=== PATIENT | male | born 1945 | race Caucasian/White ===

== ENCOUNTER 2023-11-29 17:00 | Inpatient (IN) ==
--- NOTE | 2023-11-29 18:15 | XRay Report ---
XR chest 1V not portable HISTORY: 77 years-old Male Chest pain, nonspecific COMPARISON: None TECHNIQUE: AP view of the chest FINDINGS: Cardiac silhouette is enlarged. Left subclavian pacer/AICD. No pneumothorax. Pulmonary vascular conge stion. Small right and trace left pleural effusions with mild right basilar predominant consolidation . Bones are grossly intact. IMPRESSION: 1. Cardiomegaly with pulmonary vascular congestion. 2. Small right and trace left pleural effusions. 3. Mild right basilar consolidation. ACT 112: Negative or not required by law. The above report was generated using voice recognition software. It may contain grammatical, syntax o r spelling errors. Electronically signed by: Jose Eduardo Armenta M.D. 11/29/2023 6:14 PM
[2023-11-29 18:28] LABS: Basophils # (auto) 0.03 K/uL (0.00-0.20); Basophils % (auto) 0.4 %; Eosinophils # (auto) 0.08 K/uL (0.00-0.50); Hematocrit (blood only) 46.3 % (42.0-52.0); Immature Granulocytes # (auto) 0.02 K/uL (0.01-0.20); Immature Granulocytes % (auto) 0.3 %; Lymphocytes # (auto) 1.07 K/uL (1.20-3.40); Lymphocytes % (auto) 13.8 %; Mean Corpuscular Hemoglobin 28.5 pg (25.0-34.0); Mean Corpuscular Hgb Conc 32.4 g/dL (32.0-36.0); Mean Platelet Volume 11.6 fL (9.4-12.4); Neutrophils # (auto) 5.85 K/uL (1.40-6.50); Neutrophils % (auto) 75.5 %; Platelet Count 131 K/uL (130-400); RDW Coefficient of Variation 14.9 % (11.5-14.5); RDW Standard Deviation 48.2 fL (36.4-46.3); Red Blood Count 5.26 M/uL (4.70-6.10); White Blood Count 7.75 K/ul (4.8-10.8)
[2023-11-29 18:40] LABS: Albumin Globulin Ratio 1.4 (0.9-2); Albumin Level 3.9 gm/dl (3.4-5.0); BUN Creatinine Ratio 20.6 (10-20); Bilirubin,Total 1.2 mg/dl (0.2-1.0); Calcium 9.3 mg/dl (8.6-10.3); Creatinine Clr Calc Pharmacy 45.8 ml/min; Est GFR (African American) 44.4 ml/min; Est GFR (Non-African American) 38.3 ml/min; Globulin 2.7 gm/dl (2.5-4.0); Potassium 4.2 mmol/L (3.5-5.1); Total Protein 6.6 gm/dl (6.0-8.3)
[2023-11-29 18:48] LABS: INR 1.9 (0.9-1.1); Partial Thromboplastin Ratio 1.2; Partial Thromboplastin Time 33 Seconds (21-31); Prothrombin Time 19.7 Seconds (9.0-12.0)
[2023-11-29 19:14] LABS: Troponin I High Sensitivity 92.4 pg/ml (0-20)
[2023-11-29] MEDS: BUMETANIDE 2 MG in SYRINGE 0 ML IV ONE (20:00)
--- NOTE | 2023-11-29 20:12 | History & Physical Report ---
Date of Service November 29, 2023 Assessment & Plan (1) Acute decompensated heart failure: (2) Bilateral edema of lower extremity: (3) Pulmonary edema: (4) H/O valvular heart disease: (5) Atrial fibrillation: (6) HTN (hypertension): (7) BPH (benign prostatic hyperplasia): Plan This is a 77yo M with a PMH of atrial fibrillation on coumadin, history of valvular disease (unknown which valves), CHF, HTN, HLD, defibrillator/pacemaker placement, BPH, CKD III (Cr baseline unknown) presenting with worsening BLE swelling x 4 weeks and was found to have acute decompensated heart failure. Care coordinated with Dr. Jacobson. Please see addendum for plan. I spent a total of 75 minutes coordinating, documenting, and providing care for this patient excluding time spent in the performance of separately billed services. History of Present Illness Chief Complaint: SOB Primary Care Provider: Min Velásquez MD This is a 77yo M with a PMH of atrial fibrillation on coumadin, history of valvular disease (unknown which valves), CHF, HTN, HLD, defibrillator/pacemaker placement, BPH, CKD III (Cr baseline unknown) presenting with worsening BLE swelling x 4 weeks. Follows with [facility] in [place] for primary care and Dr. Scott for cardiology ([facility]) for A fib and CHF. Thinks he is been on Bumex since hospitalization at [facility] this past March. Bumex was working well until the past few weeks when he started to have worsening swelling in lower legs as well as SOB. When he saw Dr. Scott 3 weeks ago, he increased Bumex from 1mg daily to 2mg TuThSaSu and 1mg MoWeFr. SOB improved but BLE edema has persisted and he is now having serous drainage and wounds on legs. + orthopnea, sleeping in recliner. No PND. Does not think his weight has changed much in the past month. No fever, chills, lightheadedness, headache, CP, palpitations, N/V, abd pain, dysuria, diarrhea or constipation. Does not require home O2. Has been diagnosed with BERNARDINO but does not use a CPAP mask. Follows with primary care with [facility] in [place] and Dr. Roque for nephrology in [place]. In ED, patient febrile with VSS. Cr 1.70, BNP 887, initial HS trop 92.4 with repeat pending. CXR with cardiomegaly with pulmonary vascular congestion. Small right and trace left pleural effusions. Mild right basilar consolidation. Given 2mg IV Bumex in ED. Allergies Allergy/AdvReac Type Severity Reaction Status Date / Time cephalexin [From Keflex] Allergy Intermediate Hives Unverified 11/29/23 18:57 Sulfa (Sulfonamide Allergy Intermediate Hives Unverified 11/29/23 18:57 Antibiotics) celecoxib AdvReac Intermediate Diarrhea Unverified 11/29/23 18:57 lisinopril AdvReac Mild Cough Unverified 11/29/23 18:57 Home Medications Medication Instructions Recorded Confirmed Type ascorbic acid (vitamin C) 1,000 mg 1 cap PO DAILY 11/29/23 11/29/23 History capsule,extended release atorvastatin 20 mg tablet 20 mg PO DAILY 11/29/23 11/29/23 History bumetanide 1 mg tablet 1 mg PO MOWEFR@0900 11/29/23 11/29/23 History bumetanide 1 mg tablet 2 mg PO SUTUTHSA@0900 11/29/23 11/29/23 History calcitriol 0.5 mcg capsule 0.5 mcg PO DAILY 11/29/23 11/29/23 History cholecalciferol (vitamin D3) 25 25 mcg PO DAILY 11/29/23 11/29/23 History mcg (1,000 unit) chewable tablet (Vitamin D3) finasteride 5 mg tablet 5 mg PO HS 11/29/23 11/29/23 History losartan 25 mg tablet 25 mg PO BID 11/29/23 11/29/23 History metoprolol succinate 25 mg 12.5 mg PO DAILY 11/29/23 11/29/23 History tablet,extended release 24 hr multivitamin 1 tab PO DAILY 11/29/23 11/29/23 History omeprazole 20 mg capsule,delayed 20 mg PO BID 11/29/23 11/29/23 History release spironolactone 25 mg tablet 25 mg PO QAM 11/29/23 11/29/23 History tamsulosin 0.4 mg capsule 0.4 mg PO BID 11/29/23 11/29/23 History vitamin B complex 1 tab PO DAILY 11/29/23 11/29/23 History warfarin 2.5 mg tablet (Jantoven) 1.25 mg PO MOWEFR@0900 11/29/23 11/29/23 History warfarin 2.5 mg tablet (Jantoven) 2.5 mg PO SUTUTHSA@0900 11/29/23 11/29/23 History Past Med/Surg History Problem List Acute decompensated heart failure H/O valvular heart disease Atrial fibrillation HTN (hypertension) BPH (benign prostatic hyperplasia) Pulmonary edema (Acute) Bilateral edema of lower extremity (Acute) Medical History CHF (congestive heart failure) Hiatal hernia Surgical History S/P implantation of automatic cardioverter/defibrillator (AICD) S/P urethral surgery H/O Spinal surgery Family History Other Heart disease Social History Smoking Status: Former smoker Smoking End Date: 1990; Hx Alcohol Use: No Hx Substance Use: No Preferred Language: [place] Communication Ability: Effective Customs Entry Writer Required: No Beliefs That Will Affect Care: None Current Living Situation: Spouse Current Living Situation Comment: with Kristel Feels Safe at Home: Yes Safety Concerns: Feels Safe At This Time Assistive Devices: Denture - Upper, Glasses and Hearing Aid - Bilateral Review of Systems Review of Systems: At least ten systems reviewed and negative except as noted in the HPI. Physical Exam Physical Exam: General Appearance: WD/WN, vitals as above, NAD, sitting up in bed, pleasant, conversational dyspnea Head: normocephalic, atraumatic Eyes: normal inspection, PERRL, conjunctivae normal, anicteric sclerae ENT: external ear and nose normal, oropharynx normal Neck: normal visual inspection, trachea midline, no thyromegaly Respiratory: increased respiratory effort, bibasilar rales, no wheeze or rhonchi Cardiovascular: irregular rate and rhythm, normal peripheral pulses, 3+ BLE edema Chest: normal inspection of chest, + AICD L chest wall Abdomen/GI: normal bowel sounds, distended but soft, nontender, no hepatosplenomegaly Extremities/Musculoskeletal: no cyanosis or clubbing, extremities motor strength 5/5 Neurologic: PERRL, EOMI, accommodation nl, no face palsy, no dysarthria, CN's II-XI intact bilaterally and moves all extremities Psychiatric: A+Ox3, euthymic affect Skin: no rashes, normal color, warm/dry, + open wounds R lowe with serous drainage Results & Data Results & Data Vital Signs (Past 12 Hours) Vital Signs Temp Pulse Resp BP Pulse Ox O2 Del Method 11/29/23 18:00 79 17 95 11/29/23 17:45 82 22 94 11/29/23 17:42 88 11/29/23 17:15 Room Air 11/29/23 17:11 36.8 C 15 144/91 H 95 Room Air Laboratory Results Short CBC 11/29/23 Range/Units 17:20 WBC 7.75 (4.8-10.8) K/ul Hgb 15.0 (14.0-18.0) g/dl Hct 46.3 (42.0-52.0) % Plt Count 131 (130-400) K/uL BMP 11/29/23 17:20 Sodium 138 Potassium 4.2 Chloride 105 Carbon Dioxide 25 BUN 35 H Creatinine 1.70 H Glucose 115 H Calcium 9.3 Liver Function 11/29/23 Range/Units 17:20 Total Bilirubin 1.2 H (0.2-1.0) mg/dl AST 33 (13-39) U/L ALT 22 (7-52) U/L Alkaline Phosphatase 55 (34-104) U/L Albumin 3.9 (3.4-5.0) gm/dl Diagnostic Findings Chest X-Ray 11/29/23 17:16 XR chest 1V not portable HISTORY: 77 years-old Male Chest pain, nonspecific COMPARISON: None TECHNIQUE: AP view of the chest FINDINGS: Cardiac silhouette is enlarged. Left subclavian pacer/AICD. No pneumothorax. Pulmonary vascular congestion. Small right and trace left pleural effusions with mild right basilar predominant consolidation. Bones are grossly intact. IMPRESSION: 1. Cardiomegaly with pulmonary vascular congestion. 2. Small right and trace left pleural effusions. 3. Mild right basilar consolidation. ACT 112: Negative or not required by law. The above report was generated using voice recognition software. It may contain grammatical, syntax or spelling errors. Electronically signed by: Jose Eduardo Armenta M.D. 11/29/2023 6:14 PM ECG Additional Comments: EKG reviewed - atrial fibrillation with PVCs, LAD, non-specific intra- ventricular conduction block Supervising Physician Co-Signing Physician Notes IM ATTENDING : Patient seen and examined. History obtained from patient and records. Concur with salient points upon review of preceding documentation by Ms. Earline Choe PA-C. I take responsibility for plan of care below. FINAL ASSESSMENT AND PLAN as follows : Decompensated heart failure History ICD CRI, unknown baseline History of valvular heart disease (patient unsure of pathology) Possible untreated BERNARDINO contributory to fluid retention Hypertension, slight elevated History nonocclusive CAD as per patient A-fib, rate controlled, INR slightly subtherapeutic Hyperglycemia rule out DM Past tobacco abuse. 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 Tony Scott of [facility]) and recent records/labs from PCP (Dr. Velásquez of [facility]) Device interrogation TTE, Cardiology consult Re: CHF Outpatient follow-up with Sleep Medicine for new sleep study (Patient counseled regarding association between CHF and untreated BERNARDINO.) Check hemoglobin A1c DVT prophylaxis. Coumadin INR goal between 2 and 3 Full code Text document was generated using [employer] voice recognition software. It may contain grammatical or spelling errors. Kindly contact undersigned for clarification of any documentation item in question.
[2023-11-29 20:34] LABS: Magnesium 1.9 mg/dl (1.7-2.4)
--- NOTE | 2023-11-29 20:37 | Emergency Department Note ---
Impression & Plan Congestive heart failure, Bilateral edema of lower extremity, Pulmonary edema ED Provider Note NAME: CLAUS GLEZ Sr AGE: 77 SEX: Male INFORMANT: Patient ED PROVIDER(S): Bishnu Cooper MD CHIEF COMPLAINT: Dyspnea and lower extremity edema PLAN: Disposition: Admitted Outpatient prescription management: none Referral: None MEDICAL DECISION MAKING: Patient presented because of increasing lower extremity edema. IV was established. Chest x-ray reveals findings consistent with CHF. Radiology question some consolidation in the right base but patient has no flu symptoms, fever, leukocytosis. Patient does have an elevated cardiac BNP and troponin. He is anticoagulated. Mild renal insufficiency was noted. ECG does not show any acute ischemia. Patient was given a dose of IV Bumex 2 mg as he has been using Bumex at home and increasing doses. Given the fact that his certified nursing assistant recommended admission consultation was made with Dr. Claus Jacobson, [facility]. Patient was evaluated in the ER for further management. Care/management discussed with: restaurant assistant manager Level of care consideration(s): After review of the information above and other included data, I feel the patient requires escalation of care to admission Triage Nursing notes: reviewed and agree them. Vital Signs: reviewed and remarkable for no significant abnormalities Additional History obtained from: none Chronic Medical/Social Conditions affecting care: CHF Prior/ Outside/ External records reviewed: none Differential Diagnosis: CHF reactive airway disease, pneumonia, pneumothorax, COPD, infections, cardiac ischemia, pulmonary embolism, musculoskeletal, gastrointestinal, as well as other pathologies. Diagnostics, independently interpreted by me: ECG: Twelve-lead ECG reveals atrial fibrillation 89 bpm. PVCs present. Left axis deviation and nonspecific intraventricular conduction block present. No prior for comparison. Cardiac Monitoring: Cardiac monitoring ordered by me: The patient was placed on continuous cardiac monitoring and observed. It revealed atrial fibrillation at 79 bpm. Medical decision rules: none Imaging studies: Chest imaging reveals cardiomegaly and pulmonary edema. Mild consolidation of the right base. HPI: 77 year old Male arrives for evaluation of shortness of breath and dyspnea.His certified nursing assistant wanted him to be admitted in [place] but patient would like to be admitted here for treatment as it is closer to his house. He has significant lower extremity edema which is worsening. He is up about 3 pounds over the last week. Despite his outpatient Bumex he is getting worse. He does note some improvement with his breathing after increasing his Bumex dose. Denies any flulike symptoms. Pt denies LOC, headache, fevers, chills, diaphoresis, visual changes, neck pain, chest pain, nausea, vomiting, abdominal pain, back pain, melena, hematochezia, urinary symptoms, numbness, weakness, lymphadenopathy, rash, or other complaints. PAST MEDICAL HISTORY: See Below, CHF, A-fib PAST SURGICAL HISTORY: See Below, pacer/defibrillator SOCIAL HISTORY: See Below, HOME MEDICATIONS: See Below ALLERGIES: See Below VITALS: See Below PHYSICAL EXAMINATION: GENERAL: Awake, alert, [id number], in no distress HENT: Normocephalic, atraumatic. Oropharynx unremarkable. EYES: Normal conjunctiva. Sclera non-icteric. NECK: Inspection normal. Non-tender. Supple. No nuchal rigidity. FROM. No masses. RESPIRATORY: Scattered basilar rales. No wheezes. Normal respiratory effort. CARDIAC: Normal rate. Irregular rhythm. No murmurs. No rubs. Extremities warm and well perfused. Pulses equal. No JVD. GI: Soft, non-distended. No tenderness to palpation. No rebound or guarding. No masses. RECTAL: Deferred. MUSCULOSKELETAL: Atraumatic. Chest examination reveals no tenderness. The back is symmetrical on inspection without obvious abnormality. There is no CVA tenderness to palpation. No joint edema. LOWER EXTREMITIES: Calves are equal size bilaterally and non-tender. 3+ edema. No discoloration. NEURO: Normal sensorium. No sensory or motor deficits noted. SKIN: No rash or jaundice noted. PROCEDURES: none CRITICAL CARE: none OBSERVATION NOTE: none Past Med/Surg History Problem List (Updated 11/29/23 @ 20:37 by Bishnu Cooper MD) Pulmonary edema (Acute) Bilateral edema of lower extremity (Acute) Congestive heart failure (Acute) Medical History (Updated 11/29/23 @ 20:37 by Bishnu Cooper MD) BPH (benign prostatic hyperplasia) HTN (hypertension) Atrial fibrillation H/O valvular heart disease CHF (congestive heart failure) Hiatal hernia Surgical History (Updated 11/29/23 @ 20:36 by Earline Choe PA-C) S/P implantation of automatic cardioverter/defibrillator (AICD) S/P urethral surgery H/O Spinal surgery Family History (Updated 11/29/23 @ 20:36 by Earline Choe PA-C) Other Heart disease Social History Smoking Status: Former smoker Preferred Language: Bulgarian Feels Safe at Home: Yes Allergies Allergies Allergy/AdvReac Type Severity Reaction Status Date / Time cephalexin [From Keflex] Allergy Intermediate Hives Unverified 11/29/23 18:57 Sulfa (Sulfonamide Allergy Intermediate Hives Unverified 11/29/23 18:57 Antibiotics) celecoxib AdvReac Intermediate Diarrhea Unverified 11/29/23 18:57 lisinopril AdvReac Mild Cough Unverified 11/29/23 18:57 Home Meds Home Medications Medication Instructions Recorded Confirmed Other Vitamins And Supplements 1 tab miscellaneous UD 11/29/23 11/29/23 atorvastatin 20 mg tablet 20 mg PO DAILY 11/29/23 11/29/23 bumetanide 1 mg tablet 1 mg PO UD 11/29/23 11/29/23 calcitriol 0.5 mcg capsule 0.5 mcg PO DAILY 11/29/23 11/29/23 losartan 25 mg tablet 25 mg PO BID 11/29/23 11/29/23 metoprolol succinate 25 mg 25 mg PO UD 11/29/23 11/29/23 tablet,extended release 24 hr omeprazole 20 mg capsule,delayed 20 mg PO BID 11/29/23 11/29/23 release spironolactone 25 mg tablet 25 mg PO QAM 11/29/23 11/29/23 tamsulosin 0.4 mg capsule 0.4 mg PO BID 11/29/23 11/29/23 warfarin 1 tab PO UD 11/29/23 11/29/23 Results & Data (ED) Vital Signs Vital Signs - 24 hr 11/29/23 17:11 11/29/23 17:15 11/29/23 17:42 Temperature 36.8 C Temperature Source Temporal Artery Scan Pulse Rate 88 Pulse Rate from SpO2 Sensor Respiratory Rate 15 Respiratory Effort / Characteristics Non-Labored Spontaneous Respiratory Depth Normal Blood Pressure 144/91 H Blood Pressure Mean 108 Pulse Oximetry 95 Oxygen Delivery Method Room Air Room Air Sepsis Recent Fever Within 48 Hours No Sepsis New/Unexplained Change in Mental Status No Sepsis Action Taken by Nursing No Action Required Pulse Oximetry Post Tiitration 95 11/29/23 17:45 11/29/23 18:00 Temperature Temperature Source Pulse Rate 82 79 Pulse Rate from SpO2 Sensor 93 H 80 Respiratory Rate 22 17 Respiratory Effort / Characteristics Respiratory Depth Blood Pressure Blood Pressure Mean Pulse Oximetry 94 95 Oxygen Delivery Method Sepsis Recent Fever Within 48 Hours Sepsis New/Unexplained Change in Mental Status Sepsis Action Taken by Nursing Pulse Oximetry Post Tiitration Laboratory Data 11/29/23 17:20 11/29/23 17:20 Lab Results 11/29/23 Range/Units 17:20 WBC 7.75 (4.8-10.8) K/ul RBC 5.26 (4.70-6.10) M/uL Hgb 15.0 (14.0-18.0) g/dl Hct 46.3 (42.0-52.0) % MCV 88.0 (80.0-100.0) fL MCH 28.5 (25.0-34.0) pg MCHC 32.4 (32.0-36.0) g/dL RDW Std Deviation 48.2 H (36.4-46.3) fL RDW Coeff of Sandra 14.9 H (11.5-14.5) % Plt Count 131 (130-400) K/uL MPV 11.6 (9.4-12.4) fL Immature Gran % (Auto) 0.3 % Neut % (Auto) 75.5 % Lymph % (Auto) 13.8 % Irwin % (Auto) 9.0 % Eos % (Auto) 1.0 % Baso % (Auto) 0.4 % Neut # (Auto) 5.85 (1.40-6.50) K/uL Lymph # (Auto) 1.07 L (1.20-3.40) K/uL Irwin # (Auto) 0.70 H (0.11-0.59) K/uL Eos # (Auto) 0.08 (0.00-0.50) K/uL Baso # (Auto) 0.03 (0.00-0.20) K/uL Immature Gran # (Auto) 0.02 (0.01-0.20) K/uL PT 19.7 H (9.0-12.0) Seconds INR 1.9 H (0.9-1.1) APTT 33 H (21-31) Seconds PTT Ratio 1.2 Sodium 138 (136-145) mmol/L Potassium 4.2 (3.5-5.1) mmol/L Chloride 105 (98-107) mmol/L Carbon Dioxide 25 (21-32) mmol/L Anion Gap 8 (3-11) BUN 35 H (6-23) mg/dl Creatinine 1.70 H (0.6-1.4) mg/dl Est Cr Clr Drug Dosing 45.8 ml/min Est GFR ( Amer) 44.4 ml/min Est GFR (Non-Af Amer) 38.3 ml/min BUN/Creatinine Ratio 20.6 H (10-20) Glucose 115 H (70-99(Fasting)) mg/dl Calcium 9.3 (8.6-10.3) mg/dl Total Bilirubin 1.2 H (0.2-1.0) mg/dl AST 33 (13-39) U/L ALT 22 (7-52) U/L Alkaline Phosphatase 55 (34-104) U/L Troponin I High Sens 92.4 H* (0-20) pg/ml B-Natriuretic Peptide 887 H (0-100) pg/ml Total Protein 6.6 (6.0-8.3) gm/dl Albumin 3.9 (3.4-5.0) gm/dl Globulin 2.7 (2.5-4.0) gm/dl Albumin/Globulin Ratio 1.4 (0.9-2) Administered Medications Discontinued Medications Bumetanide 2 mg/ Syringe 8 mls @ 4 mls/min IV ONE ONE Stop: 11/29/23 19:19 Last Admin: 11/29/23 20:00 Dose: 4 mls/min Documented By: KARO Imaging Data Radiologist's Impression: Chest X-Ray 11/29/23 17:16 XR chest 1V not portable HISTORY: 77 years-old Male Chest pain, nonspecific COMPARISON: None TECHNIQUE: AP view of the chest FINDINGS: Cardiac silhouette is enlarged. Left subclavian pacer/AICD. No pneumothorax. Pulmonary vascular congestion. Small right and trace left pleural effusions with mild right basilar predominant consolidation. Bones are grossly intact. IMPRESSION: 1. Cardiomegaly with pulmonary vascular congestion. 2. Small right and trace left pleural effusions. 3. Mild right basilar consolidation. ACT 112: Negative or not required by law. The above report was generated using voice recognition software. It may contain grammatical, syntax or spelling errors. Electronically signed by: Jose Eduardo Armenta M.D. 11/29/2023 6:14 PM Discharge Plan Visit Data Chief Complaint: Shortness of Breath/Dyspnea Stated Complaint: EDEMA LEGS, SOB, FLUID AROUND LUNGS, WOUND RT LEG ED Provider: Bishnu Cooper Discharge Problem: Congestive heart failure, Bilateral edema of lower extremity, Pulmonary edema Forms Stand Alone Forms: My [facility] Prescriptions Prescriptions: No Action atorvastatin 20 mg tablet 20 mg PO DAILY spironolactone 25 mg tablet 25 mg PO QAM tamsulosin 0.4 mg capsule 0.4 mg PO BID calcitriol 0.5 mcg capsule 0.5 mcg PO DAILY losartan 25 mg tablet 25 mg PO BID omeprazole 20 mg Capsule,Delayed Release(Dr/Ec) 20 mg PO BID bumetanide 1 mg tablet 1 mg PO UD Rx Instructions: per pt on and off for the last 2 weeks he takes 2 mg on , , Monday and Monday. Rest of the days he does 1 mg metoprolol succinate 25 mg tablet extended release 24 hr 25 mg PO UD Other Vitamins And Supplements 1 tab miscellaneous UD Rx Instructions: Per pt he takes other vitamins and supplements but he couldn't hear me clearly and didn't name them. warfarin 1 tab PO UD Rx Instructions: Unknown dose, no fill history. Per pt he does a full tablet on 4 times a week and half a tablet on monday, monday and fridays. Referrals Referrals: Min Velásquez MD [Primary Care Provider] -
[2023-11-29 20:50] LABS: Thyroid Stimulating Hormone 2.654 uIu/ml (0.300-4.500)
[2023-11-29 20:55] LABS: Troponin I High Sensitivity 100.8 pg/ml (0-20)
[2023-11-29 21:22] LABS: Estimated Average Glucose 134 mg/dl; Hemoglobin A1C 6.3 % (4.5-5.6)
[2023-11-29] MEDS: MAGNESIUM SULFATE / D5W 1 GM/100 ML BAG IV ONE ×2 (21:46→23:38)
[2023-11-29] MEDS ORDERED: PROMETHAZINE HCL 6.25 MG in SODIUM CHLORIDE 0.9% 50 ML IV PRN (22:06)
[2023-11-29] MEDS ORDERED: oxyCODONE HCL IR 5 MG TAB (IMMEDIATE RELEASE) PO PRN (22:06)
[2023-11-29] MEDS ORDERED: ACETAMINOPHEN 325 MG TAB PO PRN (22:06)
[2023-11-29] MEDS: WARFARIN SOD 2.5 MG TAB PO STA (23:11)
[2023-11-29] MEDS: METOPROLOL SUCC 25MG EXT REL TAB PO SCH (23:48)
[2023-11-29] MEDS: ATORVASTATIN 20 MG TAB PO SCH (23:49)
[2023-11-29] MEDS: FINASTERIDE 5 MG TAB PO SCH (23:49)
[2023-11-29] MEDS: TAMSULOSIN HCL 0.4 MG CAP PO SCH (23:49)
[2023-11-29] MEDS: PANTOprazole 40 MG TAB PO SCH (23:49)
[2023-11-30 00:27] LABS: Appearance Urine Clear (Clear); Bacteria Urine Automated None Seen (None Seen); Bilirubin Urine Negative (Negative); Blood Urine Negative (Negative); Cast Urine Automated 0-2 /lpf (0-2); Color Urine Yellow; Epithelial Cell Urine Auto 0-2 /hpf (0-2); Glucose Urine UA Negative (Negative); Ketones Urine Negative (Negative); Leukocyte Esterase Urine Trace (Negative); Nitrite Urine Negative (Negative); Protein Urine Trace (Negative); RBC Urine Automated 0-2 /hpf (0-2); Specific Gravity Urine 1.008 (1.000-1.030); Urobilinogen Urine Negative (Negative); pH Urine 5.5 (4.5-7.5)
[2023-11-30] MEDS: ALBUT/IPRATROP 3MG/0.5MG NEB 3 ML VIAL NEB STA (03:01)
[2023-11-30] MEDS: ALBUMIN 25% 12.5 GM/50 ML VIAL IV ONE (08:20)
[2023-11-30] MEDS: FUROSEMIDE 40 MG/4 ML VIAL IV ONE (08:21)
[2023-11-30] MEDS: MULTIVITAMIN TAB PO SCH (08:22)
[2023-11-30] MEDS: VITAMIN B COMPLEX TAB PO SCH (08:23)
[2023-11-30 08:36] LABS: Basophils # (auto) 0.02 K/uL (0.00-0.20); Basophils % (auto) 0.3 %; Eosinophils # (auto) 0.08 K/uL (0.00-0.50); Hematocrit (blood only) 44.4 % (42.0-52.0); Hemoglobin 14.8 g/dl (14.0-18.0); Immature Granulocytes # (auto) 0.02 K/uL (0.01-0.20); Immature Granulocytes % (auto) 0.3 %; Lymphocytes # (auto) 0.94 K/uL (1.20-3.40); Mean Corpuscular Hgb Conc 33.3 g/dL (32.0-36.0); Mean Corpuscular Volume 87.1 fL (80.0-100.0); Monocytes # (auto) 0.46 K/uL (0.11-0.59); Monocytes % (auto) 5.9 %; Neutrophils # (auto) 6.33 K/uL (1.40-6.50); Neutrophils % (auto) 80.5 %; Platelet Count 122 K/uL (130-400); RDW Coefficient of Variation 14.6 % (11.5-14.5); RDW Standard Deviation 46.7 fL (36.4-46.3); White Blood Count 7.85 K/ul (4.8-10.8)
[2023-11-30 08:48] LABS: BUN Creatinine Ratio 22.7 (10-20); Creatinine Clr Calc Pharmacy 51.6 ml/min; Est GFR (African American) 51.7 ml/min; Est GFR (Non-African American) 44.6 ml/min; Potassium 3.9 mmol/L (3.5-5.1)
[2023-11-30 08:55] LABS: INR 1.9 (0.9-1.1); Prothrombin Time 19.7 Seconds (9.0-12.0)
[2023-11-30] MEDS ORDERED: PANTOprazole 40 MG TAB PO SCH (09:00)
[2023-11-30] MEDS ORDERED: TAMSULOSIN HCL 0.4 MG CAP PO SCH (09:00)
--- NOTE | 2023-11-30 09:01 | Cardiology Consultation ---
Date of Consultation November 30, 2023 Assessment & Plan (1) Acute decompensated heart failure: (2) S/P implantation of automatic cardioverter/defibrillator (AICD): (3) Atrial fibrillation: (4) HTN (hypertension): (5) H/O valvular heart disease: Plan Assessment: 77 year old male with complex cardiac history that follows outside of the area presents with worsening HF symptoms despite multiple OP diuretic titration attempts. Plan: 1. Acute decompensated HF: 2. S/P AICD -known systolic HF as patient has a BiV ICD;however, do not know the details of his cardiac history and we are awaiting records from his primary College Teacher. Dr. Scott ([facility]). -Modest volume overload -Echo demonstrates severe reduced EF, unsure of his last echo findings. -Severe MR, again unsure of degree at his last echocardiogram. -Mild troponin elevation in the setting of acute on chronic systolic HF with known chronic renal insufficiency. EKG with no acute ST-T wave changes -Device interrogation as well as telemetry reviewed demonstrates frequent multi-vocal PVC's with several short runs of non-sustained VT. 5-6 beats -Increase Toprol xl to 25mg PO BID -Received IV lasix 60mg this AM x 1 dose. -Strict I&O, daily weights with a standing scale. Close monitoring of renal function as well as serum electrolytes with goal serum K> 4.0 and serum mag > 2.0. -will assess labs along with physical exam in the AM to determine diuretic dosing. -Please notify us when records have arrived. 3. Atrial fibrillation, permenant -Rate controlled on telemetry. -Continue Toprol xl, increasing dose as noted above s/t increased ectopy -Continue Warfarin as per current regimen with close monitoring of INRs 4. Hypertension: controlled. continue Toprol xl 5. History of valvular disease: -Patient states he has "two leaky valves", but wasn't sure which or the se verity. -Echo today demonstrates severe MR and mild TR. Contributing factor for his symptoms. Again, awaiting records for comparison as well as overall plan regarding his valve if this has been a discussion OP. Case has been discussed with Dr. Hilton. Further recommendations regarding plan of care as per his assessment. I spent a total of 40 minutes on the date of service in preparation, delivery, documentation of the care provided to the patient excluding any time spent in the performance of separately billed services. CHUCK Cordova [facility] Cardiology [facility] Supervising Physician Co-Signing Physician Notes I have personally performed a history and physical examination on the patient. I have reviewed the advance practitioner's documentation, and I agree with, and take responsibility for the plan of care. 77-year-old male admitted with acute on chronic heart failure with reduced ejection fraction in the setting of renal insufficiency. Unknown baseline creatinine. Diuresing well with 2 doses of loop diuretic therapy (Bumex in ER, Lasix this a.m.). Maintain serum potassium greater than 4.0, and serum magnesium greater than 2.0. 20 mEq oral potassium chloride ordered this afternoon. Repeat labs in AM. Additional IV diuretic therapy pending review. Echocardiogram revealing severe LV systolic dysfunction with severe mitral regurgitation. Obtain outpatient records from prior forest management teacher in [facility] for comparison. Telemetry demonstrate atrial fibrillation with biventricular pacing, PVCs, and short runs of nonsustained ventricular tachycardia. Titrate Toprol-XL to 25 mg twice daily. Losartan currently on hold due to renal insufficiency and borderline hypotension. Consider transition to Entresto pending review of a.m. labs. Consider addition of spironolactone prior to discharge. Transition care to [facility] Cardiology upon discharge. ICD with approximately 4 months until PIPO. Further interrogations as per the [facility] heart rhythm device clinic. Thank you for allow me to participate in the care of your patient. I spent a total of 40 minutes on the date of service in preparation, delivery, and documentation of the care provided to this patient, excluding any time spent in the performance of separately billed services. History of Present Illness Reason for Consultation: CHF Requesting Physician: [facility] Hospitalist Attending Physician: Dusty Pierce MD History of Present Illness HPI: Patient is a 77 year-old male with PMHx significant for Atrial fibrillation, valvular heart disease, CHF, HTN, HLD, defibrillator/PPM, BPH, CKD stage III that presented with a 4 week history of progressive BLE swelling. Patient's PCP is with [facility], but his forest management teacher, Dr. Scott is in [facility]. ([facility]) He was treated initially with an outpatient DTP of his PO bumex, and when he reported little to no improvement, he was recommended to present to the hospital for admission. EKG demonstrates A-fib with PVC Rate 89 bpm T wave abnormality. No previous EKG for comparison. Electrolytes stable. HS Troponin 92.4/100.8, continuing to trend Chest x-ray 11/29/23 IMPRESSION: 1. Cardiomegaly with pulmonary vascular congestion. 2. Small right and trace left pleural effusions. 3. Mild right basilar consolidation. Patient resting comfortably in bed at time of exam. Denies any chest pain, pressure, palpitations. He states that his breathing remains improved, but continues to endorse BLE edema. He had developed a recent open sore on his right lowe (dime size) that continues to have serous drainage, mild erythema around the site and is tender to the touch. Review of telemetry does demonstrate A-fib with multiple PVC's/Multi-focal PVC's and multiple short runs 5-6 beats of Non-sustained VT. Allergies Allergy/AdvReac Type Severity Reaction Status Date / Time cephalexin [From Keflex] Allergy Intermediate Hives Unverified 11/29/23 18:57 Sulfa (Sulfonamide Allergy Intermediate Hives Unverified 11/29/23 18:57 Antibiotics) celecoxib AdvReac Intermediate Diarrhea Unverified 11/29/23 18:57 lisinopril AdvReac Mild Cough Unverified 11/29/23 18:57 Home Medications Medication Instructions Recorded Confirmed Type ascorbic acid (vitamin C) 1,000 mg 1 cap PO DAILY 11/29/23 11/29/23 History capsule,extended release atorvastatin 20 mg tablet 20 mg PO DAILY 11/29/23 11/29/23 History bumetanide 1 mg tablet 1 mg PO MOWEFR@0911/29/23 11/29/23 History bumetanide 1 mg tablet 2 mg PO SUTUTHSA@0900 11/29/23 11/29/23 History calcitriol 0.5 mcg capsule 0.5 mcg PO DAILY 11/29/23 11/29/23 History cholecalciferol (vitamin D3) 25 25 mcg PO DAILY 11/29/23 11/29/23 History mcg (1,000 unit) chewable tablet (Vitamin D3) finasteride 5 mg tablet 5 mg PO HS 11/29/23 11/29/23 History losartan 25 mg tablet 25 mg PO BID 11/29/23 11/29/23 History metoprolol succinate 25 mg 12.5 mg PO DAILY 11/29/23 11/29/23 History tablet,extended release 24 hr multivitamin 1 tab PO DAILY 11/29/23 11/29/23 History omeprazole 20 mg capsule,delayed 20 mg PO BID 11/29/23 11/29/23 History release spironolactone 25 mg tablet 25 mg PO QAM 11/29/23 11/29/23 History tamsulosin 0.4 mg capsule 0.4 mg PO BID 11/29/23 11/29/23 History vitamin B complex 1 tab PO DAILY 11/29/23 11/29/23 History warfarin 2.5 mg tablet (Jantoven) 1.25 mg PO MOWEFR@0900 11/29/23 11/29/23 History warfarin 2.5 mg tablet (Jantoven) 2.5 mg PO SUTUTHSA@0900 11/29/23 11/29/23 History Patient History Medical History CHF (congestive heart failure) Hiatal hernia Surgical History S/P implantation of automatic cardioverter/defibrillator (AICD) S/P urethral surgery H/O Spinal surgery Family History Other Heart disease Social History Smoking Status: Former smoker Smoking End Date: 1990; Hx Alcohol Use: No Hx Substance Use: No Preferred Language: Slovak Communication Ability: Effective Power Bender Operator Required: No Beliefs That Will Affect Care: None Current Living Situation: Spouse Current Living Situation Comment: with Kristel Feels Safe at Home: Yes Safety Concerns: Feels Safe At This Time Assistive Devices: Denture - Upper, Glasses and Hearing Aid - Bilateral Review of Systems Review of Systems: All systems reviewed & are unremarkable except as noted in HPI & below Physical Exam Constitutional: well developed and well nourished; no acute distress Neck: normal visual inspection and trachea midline Respiratory: normal respiratory effort; no respiratory distress and no cough Auscultation: lungs clear to auscultation bilaterally and + diminished lung sounds (bilateral bases ); no crackles, no rales, no rhonchi and no wheezes Cardiovascular: Rate/Rhythm: + irregularly irregular Heart Sounds: normal S1, normal S2 and + murmur (+II/ systolic) Vessels: dorsalis pedis pulses present; no JVD Extremities: + edema (+1 BLE) Psychiatric: A+Ox3, euthymic affect Results & Data Vital Signs (Past 12 Hours) Vital Signs Temp Pulse Pulse Resp BP BP Pulse Ox 11/30/23 07:42 36.3 C L 86 20 115/69 91 11/30/23 02:43 36.8 C 59 L 16 114/64 94 11/29/23 23:53 36.4 C L 101 H 18 126/72 95 11/29/23 23:42 11/29/23 23:15 88 11/29/23 23:04 36.4 C L 101 H 18 126/72 95 11/29/23 23:04 11/29/23 22:19 93 H 18 146/66 H 91 11/29/23 22:06 82 24 92 11/29/23 21:00 95 H 23 91 Pulse Ox O2 Del Method O2 Del Method 11/30/23 07:42 Room Air 11/30/23 02:43 Room Air 11/29/23 23:53 Room Air 11/29/23 23:42 Room Air 11/29/23 23:15 11/29/23 23:04 Room Air 11/29/23 23:04 95 Room Air 11/29/23 22:19 Room Air 11/29/23 22:06 11/29/23 21:00 Laboratory Results Cardiac Enzymes 11/29/23 11/29/23 11/30/23 Range/Units 17:20 19:55 08:04 AST 33 (13-39) U/L Troponin I High Sens 92.4 H* 100.8 H* 108.9 H* (0-20) pg/ml B-Natriuretic Peptide 887 H (0-100) pg/ml Coagulation 11/29/23 11/30/23 Range/Units 17:20 08:04 PT 19.7 H 19.7 H (9.0-12.0) Seconds APTT 33 H (21-31) Seconds B-Natriuretic Peptide 887 H (0-100) pg/ml CBC 11/29/23 11/30/23 Range/Units 17:20 08:04 WBC 7.75 7.85 (4.8-10.8) K/ul RBC 5.26 5.10 (4.70-6.10) M/uL Hgb 15.0 14.8 (14.0-18.0) g/dl Hct 46.3 44.4 (42.0-52.0) % Plt Count 131 122 L (130-400) K/uL Neut # (Auto) 5.85 6.33 (1.40-6.50) K/uL Lymph # (Auto) 1.07 L 0.94 L (1.20-3.40) K/uL [place] # (Auto) 0.70 H 0.46 (0.11-0.59) K/uL Eos # (Auto) 0.08 0.08 (0.00-0.50) K/uL Baso # (Auto) 0.03 0.02 (0.00-0.20) K/uL Comprehensive Metabolic Panel 11/29/23 11/30/23 Range/Units 17:20 08:04 Sodium 138 137 (136-145) mmol/L Potassium 4.2 3.9 (3.5-5.1) mmol/L Chloride 105 102 (98-107) mmol/L Carbon Dioxide 25 26 (21-32) mmol/L BUN 35 H 34 H (6-23) mg/dl Creatinine 1.70 H 1.50 H (0.6-1.4) mg/dl Glucose 115 H 175 H (70-99(Fasting)) mg/dl Calcium 9.3 9.0 (8.6-10.3) mg/dl AST 33 (13-39) U/L ALT 22 (7-52) U/L Alkaline Phosphatase 55 (34-104) U/L Total Protein 6.6 (6.0-8.3) gm/dl Albumin 3.9 (3.4-5.0) gm/dl Intake and Output 11/29/23 11/30/23 11/30/23 22:59 06:59 14:59 Intake Total 600 / 600 50 / 50 Output Total 750 / 2300 1550 / 2300 350 / 350 Balance -750 / -1700 -950 / -1700 -300 / -300 Intake: IV 200 / 200 50 / 50 Albumin 25% 12.5 gm In 50 ml @ 50 / 50 50 mls/hr IV 0800 ONE Rx#: [id number] Magnesium Sulfate / D5w 1 gm In 200 / 200 100 ml @ 50 mls/hr IV ONE ONE Rx#:[id number] Oral 400 / 400 Output: Urine 750 / 2300 1550 / 2300 350 / 350 Other: Weight 112.7 kg 111.8 kg Weight Measurement Method Built in Bedscale Standing Scale Diagnostic Findings Echocardiogram 11/30/23: LVEF severely reduced 20-25% diffuse hypokinesis to akinesis severe biatrial enlargement aortic valve sclerosis mild, no significant stenosis Severe MR, centralized jet of MR Mild TR No evidence of pulmonary HTN No prior study for comparison. Awaiting records.
[2023-11-30 09:05] LABS: Troponin I High Sensitivity 108.9 pg/ml (0-20)
--- NOTE | 2023-11-30 10:08 | Electrocardiogram Report ---
Test Reason : Blood Pressure : / mmHG Vent. Rate : 089 BPM Atrial Rate : 000 BPM P-R Int : 000 ms QRS Dur : 130 ms QT Int : 380 ms P-R-T Axes : 000 -43 147 degrees QTc Int : 462 ms Atrial fibrillation with premature ventricular or aberrantly conducted complexes Left axis deviation Non-specific intra-ventricular conduction block Cannot rule out Inferior infarct , age undetermined T wave abnormality, consider anterolateral ischemia Abnormal ECG No previous ECGs available Confirmed by Min Alanis ([id number]) on 11/30/2023 10:08:13 AM Referred By: REFERRED SELF Confirmed By:Min Alanis
[2023-11-30] MEDS: CALCIUM POLYCARBOPHIL 625MG TAB PO SCH (10:35)
[2023-11-30] MEDS: POTASSIUM CHLORIDE CRTAB 20 MEQ TABCR PO STA ×2 (13:55→23:56)
--- NOTE | 2023-11-30 14:31 | Hospitalist Progress Note ---
Date of Service November 30, 2023 Assessment & Plan (1) Acute decompensated heart failure: Plan: Acute decompensated systolic heart failure with biventricular ICD placement status Complicated by valvular heart disease Has been receiving intravenous furosemide with good results Strict KEN's with daily weight and CHF education Restrict fluid to 1.5 L Appreciate cardiology input and recommendation Will continue current management Mildly increased troponin Likely secondary to stress and also is complicated by renal impairment Doubt any ACS (2) Bilateral edema of lower extremity: Plan: Secondary to CHF Improving (3) Pulmonary edema: Plan: Management as above (4) S/P implantation of automatic cardioverter/defibrillator (AICD): Plan: Known systolic heart failure and has a biventricular ICD placed Echo demonstrates severely reduced EF not sure about the last echo findings Has severe MR (5) MARTIN (acute kidney injury): Plan: Creatinine noted to be high at presentation Could be his baseline-could not be found in epic system Not sure about chronic kidney disease status Will monitor kidney function (6) H/O valvular heart disease: (7) Atrial fibrillation: Plan: Heart rate is controlled with current medication Continue Toprol-XL with increasing dose to control increased ectopy Continue anticoagulation with warfarin (8) HTN (hypertension): Plan: Blood pressure remains controlled with current medication (9) BPH (benign prostatic hyperplasia): Admission and Anticipated Discharge Date Admission Date: November 29, 2023 Subjective 11/30/2023 The patient was seen and examined in telemetry unit He has been feeling much better since admission His leg swelling is improving and also shortness of breath has improved a lot Denies any chest pain and/or palpitation Review of Systems Review of Systems: All systems reviewed and are unremarkable except as noted below Physical Exam Physical Exam: Lying in bed without any acute distress Constitutional: well developed, well nourished, + ill appearing and + obese Eyes: PERRL, conjunctivae normal, anicteric sclerae ENMT: external ear and nose normal, oropharynx normal Neck: trachea midline, no thyromegaly Respiratory: no respiratory distress Auscultation: + diminished lung sounds and + crackles (Bibasilar crackles) Cardiovascular: Rate/Rhythm: regular rate, regular rhythm and + bradycardic Heart Sounds: normal S1, normal S2 and + murmur Extremities: + edema (1+ edema bilaterally with chronic skin changes) Gastrointestinal (Abdomen): Inspection/Auscultation: normal bowel sounds; abdomen not distended Percussion/Palpation: abdomen soft; abdomen nontender Musculoskeletal: No acute arthritis involving any of the joints Neurologic: normal touch/pain/proprioception and moves all extremities; no focal motor deficits Psychiatric: A+Ox3, euthymic affect Lymphatic: no cervical or axillary lymphadenopathy Results & Data Results & Data Vital Signs (Past 12 Hours) Vital Signs Temp Pulse Pulse Resp BP Pulse Ox O2 Del Method 11/30/23 11:28 Room Air 11/30/23 11:16 36.4 C L 59 L 20 112/76 96 Room Air 11/30/23 08:00 77 11/30/23 07:42 36.3 C L 86 20 115/69 91 Room Air 11/30/23 02:43 36.8 C 59 L 16 114/64 94 Room Air Diagnostic Findings Short CBC 11/29/23 11/30/23 Range/Units 17:20 08:04 WBC 7.75 7.85 (4.8-10.8) K/ul Hgb 15.0 14.8 (14.0-18.0) g/dl Hct 46.3 44.4 (42.0-52.0) % Plt Count 131 122 L (130-400) K/uL BMP 11/29/23 11/30/23 17:20 08:04 Sodium 138 137 Potassium 4.2 3.9 Chloride 105 102 Carbon Dioxide 25 26 BUN 35 H 34 H Creatinine 1.70 H 1.50 H Glucose 115 H 175 H Calcium 9.3 9.0 Liver Function 11/29/23 Range/Units 17:20 Total Bilirubin 1.2 H (0.2-1.0) mg/dl AST 33 (13-39) U/L ALT 22 (7-52) U/L Alkaline Phosphatase 55 (34-104) U/L Albumin 3.9 (3.4-5.0) gm/dl Urine 11/30/23 Range/Units Unknown Urine Color Yellow Urine Appearance Clear (Clear) Urine pH 5.5 (4.5-7.5) Ur Specific [place] 1.008 (1.000-1.030) Urine Protein Trace H (Negative) Urine Glucose (UA) Negative (Negative) Medications Administered Current Inpatient Medications Acetaminophen (Acetaminophen 325 Mg Tab) 650 mg PO Q4H PRN PRN Reason: Pain or Fever Stop: 12/29/23 23:03 Atorvastatin Calcium (Atorvastatin 20 Mg Tab) 20 mg PO HS EDMAR Stop: 12/29/23 23:03 Last Admin: 11/29/23 23:49 Dose: 20 mg Calcium Polycarbophil (Calcium Polycarbophil 625mg Tab) 625 mg PO BID EDMAR Stop: 12/30/23 09:29 Last Admin: 11/30/23 10:35 Dose: 625 mg Finasteride (Finasteride 5 Mg Tab) 5 mg PO HS EDMAR Stop: 12/29/23 23:19 Last Admin: 11/29/23 23:49 Dose: 5 mg Promethazine HCl 6.25 mg/ (Sodium Chloride) 50.25 mls @ 201 mls/hr IV Q6H PRN PRN Reason: Nausea And Vomiting Stop: 12/29/23 22:05 Metoprolol Succinate (Metoprolol Succ 25mg Ext Rel Tab) 25 mg PO BID EDMAR Stop: 12/30/23 20:59 Multivitamins (Multivitamin Tab) 1 tab PO DAILY EDMAR Stop: 12/30/23 08:59 Last Admin: 11/30/23 08:22 Dose: 1 tab Oxycodone HCl (Oxycodone Hcl Ir 5 Mg Tab (Immediate Release)) 5 mg PO Q4H PRN PRN Reason: Pain Stop: 12/13/23 22:05 Pantoprazole Sodium (Pantoprazole 40 Mg Tab) 40 mg PO BID EDMAR Stop: 12/29/23 23:19 Last Admin: 11/30/23 08:22 Dose: 40 mg Tamsulosin HCl (Tamsulosin Hcl 0.4 Mg Cap) 0.4 mg PO BID EDMAR Stop: 12/29/23 23:19 Last Admin: 11/30/23 08:22 Dose: 0.4 mg Vitamin B Complex (Vitamin B Complex Tab) 1 tab PO DAILY EDMAR Stop: 12/30/23 08:59 Last Admin: 11/30/23 08:23 Dose: 1 tab Warfarin Sodium (Warfarin Sod 2.5 Mg Tab) 2.5 mg PO DAILY@1600 [facility] Stop: 12/30/23 15:59
[2023-11-30] MEDS: WARFARIN SOD 2.5 MG TAB PO SCH (16:13)
[2023-11-30] MEDS: METOPROLOL SUCC 25MG EXT REL TAB PO SCH (20:08)
[2023-11-30] MEDS ORDERED: FINASTERIDE 5 MG TAB PO SCH (21:00)
[2023-12-01 08:45] LABS: INR 2.5 (0.9-1.1); Prothrombin Time 24.8 Seconds (9.0-12.0)
--- NOTE | 2023-12-01 09:23 | Cardiology Progress Note ---
Date of Service December 01, 2023 Assessment & Plan (1) Acute decompensated heart failure: (2) S/P implantation of automatic cardioverter/defibrillator (AICD): (3) Atrial fibrillation: (4) HTN (hypertension): (5) H/O valvular heart disease: Plan Assessment: 77 year old male with complex cardiac history that follows outside of the area presents with worsening HF symptoms despite multiple OP diuretic titration attempts. Plan: 1. Acute decompensated HF: 2. S/P AICD -known systolic HF as patient has a BiV ICD;however, do not know the details of his cardiac history and we are awaiting records from his primary Senior Quality Technician. Dr. Scott ([facility]). -Modest volume overload -Echo demonstrates severe reduced EF, unsure of his last echo findings. -Severe MR, again unsure of degree at his last echocardiogram. -Mild troponin elevation in the setting of acute on chronic systolic HF with known chronic renal insufficiency. EKG with no acute ST-T wave changes -Device interrogation as well as telemetry reviewed demonstrates frequent multi-vocal PVC's with several short runs of non-sustained VT. 5-6 beats -Increase Toprol xl to 25mg PO BID -Received IV lasix 60mg this AM x 1 dose. -Strict I&O, daily weights with a standing scale. Close monitoring of renal function as well as serum electrolytes with goal serum K> 4.0 and serum mag > 2.0. -will assess labs along with physical exam in the AM to determine diuretic dosing. -Please notify us when records have arrived. 3. Atrial fibrillation, permeant -Rate controlled on telemetry. -Continue Toprol xl, increasing dose as noted above s/t increased ectopy -Continue Warfarin as per current regimen with close monitoring of INRs 4. Hypertension: controlled. continue Toprol xl 5. History of valvular disease: -Patient states he has "two leaky valves", but wasn't sure which or the severity. -Echo today demonstrates severe MR and mild TR. Contributing factor for his symptoms. Again, awaiting records for comparison as well as overall plan regarding his valve if this has been a discussion OP. 12/01/2023: -Patient is out of bed in the chair. Demonstrates worsening fluid overload. Cr slightly worse than yesterday. -Give Lasix 60mg IV x1 dose now. Reassess fluid status, renal function and electrolytes in the AM --Strict I&O, daily weights with a standing scale. Close monitoring of renal function as well as serum electrolytes with goal serum K> 4.0 and serum mag > 2.0. -Continue Toprol xl at increased dose 25 mg BID -Continue to await records from patient's primary underground electrician. Please notify of arrival. -17 beat run of VT on telemetry overnight, awake and asymptomatic. Known severely reduced EF. will continue to monitor closely and adjust medication therapies as appropriate. Electrolytes including mag are within normal range. -Please notify us when labs arrive Case has been discussed with Dr. Hilton. Further recommendations regarding plan of care as per his assessment. I spent a total of 30 minutes on the date of service in preparation, delivery, documentation of the care provided to the patient excluding any time spent in the performance of separately billed services. CHUCK Cordova [facility] Admission and Anticipated Discharge Date Admission Date: November 29, 2023 Supervising Physician Co-Signing Physician Notes I have personally performed a history and physical examination on the patient. I have reviewed the advance practitioner's documentation, and I agree with, and take responsibility for the plan of care. 77-year-old male admitted with acute on chronic heart failure with reduced ejection fraction in the setting of renal insufficiency. Unknown baseline creatinine. Diuresing well, however, creatinine trending upward. Give additional 60mg IV lasix today. Transition care to [facility] upon discharge. ICD with approximately 4 months until PIPO. Further interrogations as per the [facility] heart rhythm device clinic. Thank you for allow me to participate in the care of your patien t. I spent a total of 40 minutes on the date of service in preparation, delivery, and documentation of the care provided to this patient, excluding any time spent in the performance of separately billed services. Subjective 12/01/2023: Patient seen and examined in follow up today. Feeling poorly. He is sitting out of bed in the chair and notes that he feels quite anxious. Feels that his leg swelling is worse. He denies any chest pain or pressure, but feels fullness making him "short of breath" We continue to await records from his underground electrician in [place] Labs, vitals, diagnostics, telemetry and documentation reviewed. Telemetry reviewed showing A-fib with occasional PVC's and couplets. there is notation of a 17 beat run of VT at 2337. patient states that he was "semi-awake" at the time that staff came in to check him and he denied any symptoms associated with time of event. Labs reviewed. Electrolytes normal. Cr slightly worse at 1.82 (1.5 yesterday). Review of Systems Review of Systems: All systems reviewed & are unremarkable except as noted in HPI & below Physical Exam Constitutional: well developed and well nourished; no acute distress Neck: normal visual inspection and trachea midline Respiratory: normal respiratory effort; no respiratory distress and no cough Auscultation: lungs clear to auscultation bilaterally and + diminished lung sounds (bilateral bases ); no crackles, no rales, no rhonchi and no wheezes Cardiovascular: Rate/Rhythm: + irregularly irregular Heart Sounds: normal S1, normal S2 and + murmur (+II/ systolic) Vessels: dorsalis pedis pulses present; no JVD Extremities: + edema (+2 BLE) Psychiatric: A+Ox3, euthymic affect Affect: + anxious affect Results & Data Vital Signs (Past 12 Hours) Vital Signs Temp Pulse Pulse Resp BP Pulse Ox O2 Del Method 12/01/23 07:55 92 H 12/01/23 07:55 Room Air 12/01/23 07:21 36.3 C L 83 23 111/69 90 Room Air 12/01/23 02:33 36.4 C L 97 H 16 115/70 92 Room Air 11/30/23 23:52 64 123/81 11/30/23 22:47 36.4 C L 83 18 120/89 95 Room Air 11/30/23 22:31 80 Laboratory Results Coagulation 12/01/23 Range/Units 07:56 PT 24.8 H (9.0-12.0) Seconds Comprehensive Metabolic Panel 12/01/23 Range/Units 08:00 Sodium 137 (136-145) mmol/L Potassium 4.6 (3.5-5.1) mmol/L Chloride 101 (98-107) mmol/L Carbon Dioxide 26 (21-32) mmol/L BUN 42 H (6-23) mg/dl Creatinine 1.82 H D (0.6-1.4) mg/dl Glucose 130 H (70-99(Fasting)) mg/dl Calcium 9.3 (8.6-10.3) mg/dl Intake and Output 11/30/23 12/01/23 12/01/23 22:59 06:59 14:59 Intake Total 250 / 1040 500 / 1040 710 / 710 Output Total 400 / 1550 500 / 1550 Balance -150 / -510 0 / -510 710 / 710 Intake: Oral 250 / 990 500 / 990 710 / 710 Output: Urine 400 / 1550 500 / 1550 Other: Other Intake Source STRICT
[2023-12-01 12:59] LABS: Calcium 9.3 mg/dl (8.6-10.3); Magnesium 1.9 mg/dl (1.7-2.4); Potassium 4.6 mmol/L (3.5-5.1)
[2023-12-01 13:04] LABS: BUN Creatinine Ratio 23.1 (10-20); Creatinine Clr Calc Pharmacy 42.6 ml/min; Est GFR (African American) 40.9 ml/min; Est GFR (Non-African American) 35.3 ml/min
[2023-12-01] MEDS: FUROSEMIDE 40 MG/4 ML VIAL IV ONE (14:25)
--- NOTE | 2023-12-01 16:10 | Hospitalist Progress Note ---
Date of Service December 01, 2023 Assessment & Plan (1) Acute decompensated heart failure: Plan: Acute decompensated systolic heart failure with biventricular ICD placement status Complicated by valvular heart disease Has been receiving intravenous furosemide with good results Strict KEN's with daily weight and CHF education Restrict fluid to 1.5 L Appreciate cardiology input and recommendation Will continue current management Clinically a little better but still remains significant symptomatic with movement -1852 mL so far Creatinine slightly elevated today but will get 60 mg of IV Lasix Like to be discharged in a day or 2 Will need cardiology follow-up as an outpatient sooner than later Mildly increased troponin-demand ischemia Likely secondary to stress and also is complicated by renal impairment Doubt any ACS (2) Bilateral edema of lower extremity: Plan: Secondary to CHF Improving (3) Pulmonary edema: Plan: Management as above (4) S/P implantation of automatic cardioverter/defibrillator (AICD): Plan: Known systolic heart failure and has a biventricular ICD placed Echo demonstrates severely reduced EF not sure about the last echo findings Has severe MR Has had 17 beats of V. tach on critical care nurse specialist-cardiology aware Will continue with beta-juanito (5) MARTIN (acute kidney injury): Plan: Creatinine noted to be high at presentation Could be his baseline-could not be found in epic system Not sure about chronic kidney disease status Creatinine has been going up-went up to 1.82 from 1.70 on admission He will get Lasix 60 mg IV today and will have recheck of PRP tomorrow (6) H/O valvular heart disease: (7) Atrial fibrillation: Plan: Heart rate is controlled with current medication Continue Toprol-XL with increasing dose to control increased ectopy Continue anticoagulation with warfarin INR is 2.5 today and he will have half the dose of regular Coumadin today Will monitor INR (8) HTN (hypertension): Plan: Blood pressure remains controlled with current medication Blood pressure remains on the lower side at 103/66 (9) BPH (benign prostatic hyperplasia): Admission and Anticipated Discharge Date Admission Date: November 29, 2023 Subjective 11/30/2023 The patient was seen and examined in telemetry unit He has been feeling much better since admission His leg swelling is improving and also shortness of breath has improved a lot Denies any chest pain and/or palpitation 11/30/2023 The patient was seen and examined in telemetry unit He has been feeling little better Still has significant short of breath with exertion Leg edema is improving a little Denies any chest pain and/or palpitation Review of Systems Review of Systems: All systems reviewed and are unremarkable except as noted below Physical Exam Physical Exam: Lying in bed without any acute distress Constitutional: well developed, well nourished, + ill appearing and + obese Eyes: PERRL, conjunctivae normal, anicteric sclerae ENMT: external ear and nose normal, oropharynx normal Neck: trachea midline, no thyromegaly Respiratory: no respiratory distress Auscultation: + diminished lung sounds and + crackles (Bibasilar crackles) Cardiovascular: Rate/Rhythm: regular rate, regular rhythm and + bradycardic Heart Sounds: normal S1, normal S2 and + murmur Extremities: + edema (1+ edema bilaterally with chronic skin changes) Gastrointestinal (Abdomen): Inspection/Auscultation: normal bowel sounds; abdomen not distended Percussion/Palpation: abdomen soft; abdomen nontender Musculoskeletal: No acute arthritis involving any of the joints Neurologic: normal touch/pain/proprioception and moves all extremities; no focal motor deficits Psychiatric: A+Ox3, euthymic affect Lymphatic: no cervical or axillary lymphadenopathy Results & Data Results & Data Vital Signs (Past 12 Hours) Vital Signs Temp Pulse Pulse Resp BP Pulse Ox O2 Del Method 12/01/23 10:47 36.4 C L 62 21 103/66 94 Room Air 12/01/23 07:55 92 H 12/01/23 07:55 Room Air 12/01/23 07:21 36.3 C L 83 23 111/69 90 Room Air Laboratory Results [facility] 12/01/23 08:00 Sodium 137 Potassium 4.6 Chloride 101 Carbon Dioxide 26 BUN 42 H Creatinine 1.82 H D Glucose 130 H Calcium 9.3 Medications Administered Current Inpatient Medications Acetaminophen (Acetaminophen 325 Mg Tab) 650 mg PO Q4H PRN PRN Reason: Pain or Fever Stop: 12/29/23 23:03 Atorvastatin Calcium (Atorvastatin 20 Mg Tab) 20 mg PO HS EDMAR Stop: 12/29/23 23:03 Last Admin: 11/30/23 20:07 Dose: 20 mg Calcium Polycarbophil (Calcium Polycarbophil 625mg Tab) 625 mg PO BID EDMAR Stop: 12/30/23 09:29 Last Admin: 12/01/23 08:54 Dose: 625 mg Finasteride (Finasteride 5 Mg Tab) 5 mg PO HS EDMAR Stop: 12/29/23 23:19 Last Admin: 11/30/23 20:07 Dose: 5 mg Promethazine HCl 6.25 mg/ (Sodium Chloride) 50.25 mls @ 201 mls/hr IV Q6H PRN PRN Reason: Nausea And Vomiting Stop: 12/29/23 22:05 Metoprolol Succinate (Metoprolol Succ 25mg Ext Rel Tab) 25 mg PO BID EDMAR Stop: 12/30/23 20:59 Last Admin: 12/01/23 08:55 Dose: 25 mg Multivitamins (Multivitamin Tab) 1 tab PO DAILY EDMAR Stop: 12/30/23 08:59 Last Admin: 12/01/23 08:54 Dose: 1 tab Oxycodone HCl (Oxycodone Hcl Ir 5 Mg Tab (Immediate Release)) 5 mg PO Q4H PRN PRN Reason: Pain Stop: 12/13/23 22:05 Pantoprazole Sodium (Pantoprazole 40 Mg Tab) 40 mg PO BID EDMAR Stop: 12/29/23 23:19 Last Admin: 12/01/23 08:56 Dose: 40 mg Tamsulosin HCl (Tamsulosin Hcl 0.4 Mg Cap) 0.4 mg PO BID EDMAR Stop: 12/29/23 23:19 Last Admin: 12/01/23 08:56 Dose: 0.4 mg Vitamin B Complex (Vitamin B Complex Tab) 1 tab PO DAILY EDMAR Stop: 12/30/23 08:59 Last Admin: 12/01/23 08:56 Dose: 1 tab Warfarin Sodium (Warfarin Sod 2.5 Mg Tab) 2.5 mg PO DAILY@1600 EDMAR Stop: 12/30/23 15:59 Last Admin: 12/01/23 15:44 Dose: 1.25 mg
[2023-12-01] MEDS ORDERED: Nursing to Pharmacy Communication SCH (16:15)
[2023-12-02] MEDS: MAGNESIUM SULFATE / D5W 1 GM/100 ML BAG IV ONE (03:26)
[2023-12-02 06:56] LABS: BUN Creatinine Ratio 26.6 (10-20); Calcium 9.6 mg/dl (8.6-10.3); Creatinine Clr Calc Pharmacy 38.9 ml/min; Est GFR (African American) 36.7 ml/min; Est GFR (Non-African American) 31.7 ml/min; Magnesium 2.3 mg/dl (1.7-2.4); Potassium 4.3 mmol/L (3.5-5.1)
[2023-12-02 07:16] LABS: INR 2.8 (0.9-1.1); Prothrombin Time 27.7 Seconds (9.0-12.0)
--- NOTE | 2023-12-02 08:33 | Cardiology Progress Note ---
Date of Service December 02, 2023 Assessment & Plan (1) Acute decompensated heart failure: (2) H/O valvular heart disease: (3) Atrial fibrillation: (4) HTN (hypertension): (5) Bilateral edema of lower extremity: (6) S/P implantation of automatic cardioverter/defibrillator (AICD): Plan 1. Nonischemic cardiomyopathy -EF 25%; s/p BIV ICD 2. Acute on chronic HFrEF 3. Likely permanent AFIB -on coumadin 4. Severe mitral regurgitation 5. BERNARDINO -noncompliant with CPAP 6. HTN 7. HLD 8. Acute on chronic kidney disease? -Records still not received from [facility]. -Patient remains grossly volume overloaded with limited response to low dose diuretics -CXR with pulmonary vascular congestion -Bladder scan without urinary retention -Increase IV lasix to 80mg BID -Strict I&O. Daily weights with standing scale. -Close monitoring of renal function and serum electrolytes with goal K> 4.0 and mag > 2.0 -Telemetry reviewed. Heart rate is well controlled. Stable, asymptomatic ventricular ectopy with PVCs and NSVT -Continue metoprolol succinate 25mg BID -Anticoagulated with coumadin. INR therapeutic. -Sleep study >10 years ago. Patient unable to find comfortable settings on CPAP -Patient would benefit from PAP therapy. Patient agreeable to trial. Case discussed with Dr. Saleh. I spent a total of 40 minutes on the date of service in preparation, delivery, and documentation of the care provided to this patient, excluding any time spent in the performance of separately billed services. Anny Barros PA-C Department of Cardiology, [facility] This chart was completed in part utilizing Speech Voice Recognition Software. Grammatical errors, random word insertions, pronoun errors, and incomplete sentences are an occasional consequence of this system due to software limitations, ambient noise, and hardware issues. Any formal questions or concerns about the content, text, or information contained within the body of this dictation should be directly addressed to the provider for clarification. Admission and Anticipated Discharge Date Admission Date: November 29, 2023 Supervising Physician Co-Signing Physician Notes I have personally performed a history and physical examination on the patient. I have reviewed the advance practitioner's documentation, and I agree with, and take responsibility for the plan of care. Patient remains significantly volume overloaded. Will start Lasix 80mg IV BID. Monitor I/Os and electrolytes. I spent a total of 35 minutes on the date of service in preparation, delivery, and documentation of the care provided to this patient, excluding any time spent in the performance of separately billed services. Subjective Claus Cuadra is a 77 year old male with extensive cardiac history that follows with Dr. Scott with [facility] Shad (awaiting records) including nonischemic cardiomyopathy (EF 25%), BIV ICD, atrial fibrillation on coumadin, severe MR, ventricular ectopy, HFrEF, BERNARDINO noncompliant with CPAP that presented to [facility] ED 11/29/2023 with worsening edema and shortness of breath despite multiple outpatient diuretic titration attempts. As an outpatient patient was taking bumex 2mg S, T, TH, SAT and 1mg MWF. Reports trying his best to remain compliant with CHF diet and FR. Telemetry with frequent multifocal PVCs and short bursts of NSVT. Toprol increased to 25mg BID. Initially patient with MARTIN, diuretics held. Given IV lasix 60mg x1 yesterday AM. -200mL today. No weight available for review this AM Patient continues with shortness of breath and LE edema. States symptoms are not much better than yesterday. Did not have as much urination as he expected overnight. Bladder scan with no urinary retention. He did sleep slightly better. Awakes in the middle of the night frequently short of breath. Accompanied by anxiety as he cannot catch his breath. Cannot lay flat to sleep due to SOB. Reports positive sleep study >10 years ago. Unable to find comfortable settings. Has not worn CPAP since then. Interested in trialing PAP therapy. Review of Systems Review of Systems: All systems reviewed & are unremarkable except as noted in HPI & below Constitutional: + weight gain Respiratory: + dyspnea on exertion Cardiovascular: + dyspnea on exertion, + orthopnea, + pa roxysmal nocturnal dyspnea and + edema Physical Exam Constitutional: WD/WN, vitals as above + edematous Eyes: PERRL, conjunctivae normal, anicteric sclerae Respiratory: normal respiratory effort, lungs clear to auscultation Cardiovascular: Rate/Rhythm: regular rate and + irregularly irregular Heart Sounds: normal S1, normal S2 and + murmur Extremities: + edema +2 BLE edema. Gastrointestinal (Abdomen): Inspection/Auscultation: + abdomen distended Musculoskeletal: no cyanosis or clubbing, extremities motor strength 5/5 Skin: no rashes, warm and dry Psychiatric: A+Ox3, euthymic affect Results & Data Vital Signs (Past 12 Hours) Vital Signs Temp Pulse Pulse Resp BP Pulse Ox O2 Del Method 12/02/23 08:17 66 20 102/71 92 Room Air 12/02/23 03:04 36.4 C L 58 L 22 116/67 92 Room Air 12/01/23 23:21 94 H Laboratory Results Coagulation 12/01/23 12/02/23 Range/Units 07:56 06:19 PT 24.8 H 27.7 H (9.0-12.0) Seconds Comprehensive Metabolic Panel 12/01/23 12/02/23 Range/Units 08:00 06:19 Sodium 137 136 (136-145) mmol/L Potassium 4.6 4.3 (3.5-5.1) mmol/L Chloride 101 98 (98-107) mmol/L Carbon Dioxide 26 28 (21-32) mmol/L BUN 42 H 53 H (6-23) mg/dl Creatinine 1.82 H D 1.99 H (0.6-1.4) mg/dl Glucose 130 H 128 H (70-99(Fasting)) mg/dl Calcium 9.3 9.6 (8.6-10.3) mg/dl Intake and Output 12/01/23 12/02/23 12/02/23 22:59 06:59 14:59 Intake Total 300 / 1110 100 / 1110 Output Total 750 / 1352 250 / 1352 Balance -450 / -242 -150 / -242 Intake: IV 100 / 100 Magnesium Sulfate / D5w 1 gm In 100 / 100 100 ml @ 50 mls/hr IV ONE ONE Rx#:[id number] Oral 300 / 1010 Output: Urine 750 / 1350 250 / 1350 Diagnostic Findings EKG 11/29/2023 AFIB with PVCs 89bpm LAD T wave abnormality ECHO 11/30/2023 Left ventricular systolic function if severely reduced LVEF 20-25% Severe biatrial enlargement mild aortic valve sclerosis without significant aortic stenosis Severe mitral regurgitation Centralized jet or mitral regurgitation There is mild tricuspid regurgitation Doppler findings do not suggest pulmonary HTN
[2023-12-02] MEDS: FUROSEMIDE 40 MG/4 ML VIAL IV SCH (12:09)
--- NOTE | 2023-12-02 14:26 | Hospitalist Progress Note ---
Date of Service December 02, 2023 Assessment & Plan (1) Acute decompensated heart failure: Plan: Acute decompensated systolic heart failure with biventricular ICD placement status Complicated by valvular heart disease Has been receiving intravenous furosemide with good results Strict KEN's with daily weight and CHF education Restrict fluid to 1.5 L Appreciate cardiology input and recommendation Will continue current management Clinically a little better but still remains significant symptomatic with movement -1852 mL so far Creatinine slightly elevated today but will get 60 mg of IV Lasix Like to be discharged in a day or 2 Still remains quite symptomatic Started on intravenous Lasix 80 mg twice daily from today Will monitor I's and O's and also kidney functions Mildly increased troponin-demand ischemia Likely secondary to stress and also is complicated by renal impairment Doubt any ACS (2) Bilateral edema of lower extremity: Plan: Secondary to CHF Improving (3) Pulmonary edema: Plan: Management as above (4) S/P implantation of automatic cardioverter/defibrillator (AICD): Plan: Known systolic heart failure and has a biventricular ICD placed Echo demonstrates severely reduced EF not sure about the last echo findings Has severe MR Has had 17 beats of V. tach on cardiac monitor-cardiology aware Will continue with beta-juanito (5) MARTIN (acute kidney injury): Plan: Creatinine noted to be high at presentation Could be his baseline-could not be found in AFINOS system Not sure about chronic kidney disease status Creatinine has been going up-went up to 1.82 from 1.70 on admission He will get Lasix 60 mg IV today and will have recheck of PRP tomorrow Will monitor electrolytes and kidney function (6) H/O valvular heart disease: (7) Atrial fibrillation: Plan: Heart rate is controlled with current medication Continue Toprol-XL with increasing dose to control increased ectopy Continue anticoagulation with warfarin INR is 2.5 today and he will have half the dose of regular Coumadin today Will monitor INR (8) HTN (hypertension): Plan: Blood pressure remains controlled with current medication Blood pressure remains on the lower side at 103/66 (9) BPH (benign prostatic hyperplasia): Admission and Anticipated Discharge Date Admission Date: November 29, 2023 Subjective 11/30/2023 The patient was seen and examined in telemetry unit He has been feeling much better since admission His leg swelling is improving and also shortness of breath has improved a lot Denies any chest pain and/or palpitation 12/01/2023 The patient was seen and examined in telemetry unit He has been feeling little better Still has significant short of breath with exertion Leg edema is improving a little Denies any chest pain and/or palpitation 12/02/2023 The patient was seen and examined in telemetry unit He has been feeling a little better but he still remains quite symptomatic Leg swellings are not any better Denies any chest pain and/or palpitation Review of Systems Review of Systems: All systems reviewed and are unremarkable except as noted below Physical Exam Physical Exam: Lying in bed without any acute distress Constitutional: well developed, well nourished, + ill appearing and + obese Eyes: PERRL, conjunctivae normal, anicteric sclerae ENMT: external ear and nose normal, oropharynx normal Neck: trachea midline, no thyromegaly Respiratory: no respiratory distress Auscultation: + diminished lung sounds and + crackles (Bibasilar crackles) Cardiovascular: Rate/Rhythm: regular rate, regular rhythm and + bradycardic Heart Sounds: normal S1, normal S2 and + murmur Extremities: + edema (1+ edema bilaterally with chronic skin changes) Gastrointestinal (Abdomen): Inspection/Auscultation: normal bowel sounds; abdomen not distended Percussion/Palpation: abdomen soft; abdomen nontender Musculoskeletal: No acute arthritis involving any of the joints Neurologic: normal touch/pain/proprioception and moves all extremities; no focal motor deficits Psychiatric: A+Ox3, euthymic affect Lymphatic: no cervical or axillary lymphadenopathy Results & Data Results & Data Vital Signs (Past 12 Hours) Vital Signs Temp Pulse Pulse Resp BP Pulse Ox O2 Del Method 12/02/23 10:57 36.3 C L 76 22 111/65 94 Room Air 12/02/23 08:17 66 20 102/71 92 Room Air 12/02/23 08:00 78 12/02/23 08:00 Room Air 12/02/23 03:04 36.4 C L 58 L 22 116/67 92 Room Air Laboratory Results [facility] 12/02/23 06:19 Sodium 136 Potassium 4.3 Chloride 98 Carbon Dioxide 28 BUN 53 H Creatinine 1.99 H Glucose 128 H Calcium 9.6 Medications Administered Current Inpatient Medications Acetaminophen (Acetaminophen 325 Mg Tab) 650 mg PO Q4H PRN PRN Reason: Pain or Fever Stop: 12/29/23 23:03 Atorvastatin Calcium (Atorvastatin 20 Mg Tab) 20 mg PO HS EDMAR Stop: 12/29/23 23:03 Last Admin: 12/01/23 21:01 Dose: 20 mg Calcium Polycarbophil (Calcium Polycarbophil 625mg Tab) 625 mg PO BID EDMAR Stop: 12/30/23 09:29 Last Admin: 12/02/23 08:20 Dose: 625 mg Finasteride (Finasteride 5 Mg Tab) 5 mg PO HS EDMAR Stop: 12/29/23 23:19 Last Admin: 12/01/23 21:00 Dose: 5 mg Furosemide (Furosemide 40 Mg/4 Ml Vial) 80 mg IV BID EDMAR Stop: 01/01/24 11:14 Last Admin: 12/02/23 12:09 Dose: 80 mg Promethazine HCl 6.25 mg/ (Sodium Chloride) 50.25 mls @ 201 mls/hr IV Q6H PRN PRN Reason: Nausea And Vomiting Stop: 12/29/23 22:05 Metoprolol Succinate (Metoprolol Succ 25mg Ext Rel Tab) 25 mg PO BID EDMAR Stop: 12/30/23 20:59 Last Admin: 12/02/23 08:20 Dose: 25 mg Multivitamins (Multivitamin Tab) 1 tab PO DAILY EDMAR Stop: 12/30/23 08:59 Last Admin: 12/02/23 08:21 Dose: 1 tab Oxycodone HCl (Oxycodone Hcl Ir 5 Mg Tab (Immediate Release)) 5 mg PO Q4H PRN PRN Reason: Pain Stop: 12/13/23 22:05 Pantoprazole Sodium (Pantoprazole 40 Mg Tab) 40 mg PO BID [facility] Stop: 12/29/23 23:19 Last Admin: 12/02/23 08:21 Dose: 40 mg Tamsulosin HCl (Tamsulosin Hcl 0.4 Mg Cap) 0.4 mg PO BID EDMAR Stop: 12/29/23 23:19 Last Admin: 12/02/23 08:20 Dose: 0.4 mg Vitamin B Complex (Vitamin B Complex Tab) 1 tab PO DAILY [facility] Stop: 12/30/23 08:59 Last Admin: 12/02/23 08:21 Dose: 1 tab Warfarin Sodium (Warfarin Sod 2.5 Mg Tab) 2.5 mg PO [email or web address] [facility] Stop: 01/01/24 15:59 Warfarin Sodium (Warfarin Sod 1.25 Mg Tab) 1.25 mg PO [email or web address] [facility] Stop: 01/03/24 15:59
[2023-12-02] MEDS: WARFARIN SOD 2.5 MG TAB PO SCH (15:43)
[2023-12-02] MEDS: LORazepam 0.5 MG TAB PO STA (21:45)
--- NOTE | 2023-12-03 08:08 | Cardiology Progress Note ---
Date of Service December 03, 2023 Assessment & Plan (1) Acute decompensated heart failure: (2) H/O valvular heart disease: (3) Atrial fibrillation: (4) Bilateral edema of lower extremity: (5) S/P implantation of automatic cardioverter/defibrillator (AICD): Plan 1. Nonischemic cardiomyopathy -EF 25%; s/p BIV ICD 2. Acute on chronic systolic and diastolic CHF 3. Likely permanent AFIB -on coumadin 4. Severe MR 5. BERNARDINO -noncompliant with CPAP 6. HTN 7. HLD 8. Acute on chronic kidney disease? -Records still not received from [facility] -Patient remains grossly volume overloaded with minimal response -Start lasix drip. -Strict I&O. Daily weight with standing scale. -Close monitoring of renal function and electrolytes with goal K >4.0 and magnesium >2.0 -Telemetry reviewed. Heart rate is well controlled. Stable, asymptomatic ventricular ectopy with PVCs and NSVT -Continue metoprolol succinate 25mg BID -Anticoagulated with coumadin. INR therapeutic. Admission and Anticipated Discharge Date Admission Date: November 29, 2023 Supervising Physician Co-Signing Physician Notes I have personally performed a history and physical examination on the patient. I have reviewed the advance practitioner's documentation, and I agree with, and take responsibility for the plan of care. Patient remains significantly volume overloaded. No significant response to Lasix bolus. Will start patient on a Lasix drip with careful monitoring of his renal function and electrolytes. Recommend checking BMPq12. I spent a total of 35 minutes on the date of service in preparation, delivery, and documentation of the care provided to this patient, excluding any time spent in the performance of separately billed services. Subjective Claus Cuadra is a 77 year old male with acute on chronic systolic and diastolic CHF. Received IV lasix 80mg BID yesterday. -500mL out. Jewell is down 1/2 pound. Patient remains short of breath. Legs are swollen. Reports minimal improvement in symptoms since yesterday. Review of Systems Review of Systems: All systems reviewed & are unremarkable except as noted in HPI & below Respiratory: + dyspnea on exertion Musculoskeletal: +LE edema Physical Exam Constitutional: WD/WN, vitals as above Eyes: PERRL, conjunctivae normal, anicteric sclerae Respiratory: normal respiratory effort, lungs clear to auscultation Cardiovascular: Rate/Rhythm: regular rate and + irregularly irregular Heart Sounds: normal S1 and normal S2 Vessels: no JVD Extremities: + edema +2 BLE edema Gastrointestinal (Abdomen): Inspection/Auscultation: + abdomen distended Results & Data Vital Signs (Past 12 Hours) Vital Signs Temp Pulse Pulse Resp BP Pulse Ox O2 Del Method 12/03/23 03:41 80 20 122/82 90 Room Air 12/03/23 00:00 101 H 12/02/23 23:38 36.4 C L 74 20 108/75 94 Room Air
[2023-12-03 08:18] LABS: BUN Creatinine Ratio 27.4 (10-20); Calcium 9.2 mg/dl (8.6-10.3); Creatinine Clr Calc Pharmacy 36.5 ml/min; Est GFR (Non-African American) 29.3 ml/min; Potassium 4.4 mmol/L (3.5-5.1)
[2023-12-03 08:25] LABS: INR 3.9 (0.9-1.1); Prothrombin Time 37.4 Seconds (9.0-12.0)
[2023-12-03] MEDS: FUROSEMIDE 100 MG in 0.9 % SODIUM CHLORIDE 90 ML IV SCH (12:36)
--- NOTE | 2023-12-03 13:04 | Nephrology Consultation ---
Date of Consultation December 03, 2023 Assessment & Plan (1) MARTIN (acute kidney injury): MARTIN 2/ Decompensated heart failure Vs progression of CKD. -He has been making @ 1.5--2li of urine daily but continue to be grossly overloaded. Agree with Laix drip, would also add metolazone 2.5 mg / 3 time weekly. - His renal function may decline w. diuresis, but we have to accept this, . His baseline cr will be higher. - Keep k > 4 and mg > 2 - At the moment he is responding to the diuretics,dialysis is not indicated. - we will continue to review this daily. - Daily I/O, daily weight prefebly on the same scale - Avoid any ACR/arb at the moment. (2) Acute decompensated heart failure: (3) Atrial fibrillation: History of Present Illness Reason for Consultation: MARTIN on ckd, Fluid overload Attending Physician: Dusty Pierce MD History of Present Illness 77yo M who p/ w with worsening BLE swelling x 4 weeks. He was on Bumex, which was recently increased as he has complained of increasing pedal edema, and Orthopnea. Does not think the he has gained weight , UOP has been almost the same as before. No fever, chills, lightheadedness, headache, CP, palpitations, N/V, abd pain, dysuria, diarrhea or constipation. Has been diagnosed with BERNARDINO but does not use a CPAP mask. Chext x ray on admission showed CXR cardiomegaly with pulmonary vascular congestion and Small right and trace left pleural effusions.On admission ,his Cr was 1.70 which has gradually worsened during the hospital stay , up to 2.12 today. Diuretic has been managed by cardiology , started on Lasix drip today. He continues to grossly overloaded with SOB on exertion and 2+ bilateral pedal edema PMH of atrial fibrillation on coumadin, history of valvular disease (unknown which valves), CHF, HTN, HLD, defibrillator/pacemaker placement, BPH, CKD III (Cr baseline unknown, f/w Dr Solis in [place], PCP W/ Evans florez) Dr. Scott for cardiology (ANA Sen) for A fib and CHF. Allergies Allergy/AdvReac Type Severity Reaction Status Date / Time cephalexin [From Keflex] Allergy Intermediate Hives Unverified 11/29/23 18:57 Sulfa (Sulfonamide Allergy Intermediate Hives Unverified 11/29/23 18:57 Antibiotics) celecoxib AdvReac Intermediate Diarrhea Unverified 11/29/23 18:57 lisinopril AdvReac Mild Cough Unverified 11/29/23 18:57 Home Medications Medication Instructions Recorded Confirmed Type ascorbic acid (vitamin C) 1,000 mg 1 cap PO DAILY 11/29/23 11/29/23 History capsule,extended release atorvastatin 20 mg tablet 20 mg PO DAILY 11/29/23 11/29/23 History bumetanide 1 mg tablet 1 mg PO MOWEFR@0900 11/29/23 11/29/23 History bumetanide 1 mg tablet 2 mg PO SUTUTHSA@0911/29/23 11/29/23 History calcitriol 0.5 mcg capsule 0.5 mcg PO DAILY 11/29/23 11/29/23 History cholecalciferol (vitamin D3) 25 25 mcg PO DAILY 11/29/23 11/29/23 History mcg (1,000 unit) chewable tablet (Vitamin D3) finasteride 5 mg tablet 5 mg PO HS 11/29/23 11/29/23 History losartan 25 mg tablet 25 mg PO BID 11/29/23 11/29/23 History metoprolol succinate 25 mg 12.5 mg PO DAILY 11/29/23 11/29/23 History tablet,extended release 24 hr multivitamin 1 tab PO DAILY 11/29/23 11/29/23 History omeprazole 20 mg capsule,delayed 20 mg PO BID 11/29/23 11/29/23 History release spironolactone 25 mg tablet 25 mg PO QAM 11/29/23 11/29/23 History tamsulosin 0.4 mg capsule 0.4 mg PO BID 11/29/23 11/29/23 History vitamin B complex 1 tab PO DAILY 11/29/23 11/29/23 History warfarin 2.5 mg tablet (Jantoven) 1.25 mg PO MOWEFR@0900 11/29/23 11/29/23 History warfarin 2.5 mg tablet (Jantoven) 2.5 mg PO SUTUTHSA@0900 11/29/23 11/29/23 History Patient History Medical History CHF (congestive heart failure) Hiatal hernia Surgical History S/P implantation of automatic cardioverter/defibrillator (AICD) S/P urethral surgery H/O Spinal surgery Family History Other Heart disease Social History Smoking Status: Former smoker Smoking End Date: 1990; Hx Alcohol Use: No Hx Substance Use: No Preferred Language: Irish Communication Ability: Effective Ob/Gyn Doctor Required: No Beliefs That Will Affect Care: None Current Living Situation: Spouse Current Living Situation Comment: with Kristel Feels Safe at Home: Yes Safety Concerns: Feels Safe At This Time Assistive Devices: Denture - Upper, Glasses and Hearing Aid - Bilateral Review of Systems 2 Review of Systems: SOB on exertion 2+ bilateral pedal edema Physical Exam 2 Physical Exam: General - SOb on exertion Respiratory- clear to auscultation Abdomen - Soft , non distended. CVS- + irregularly irregular Heart Sounds: normal S1 and normal S2 Vessels: no JVD Extremities:2 + edema bilaterally Results & Data Vital Signs (Past 12 Hours) Vital Signs Pulse Pulse Resp BP Pulse Ox O2 Del Method 12/03/23 10:04 56 L 23 114/73 91 Room Air 12/03/23 08:00 94 H 12/03/23 08:00 Room Air 12/03/23 07:56 64 22 99/79 L 96 Room Air 12/03/23 03:41 80 20 122/82 90 Room Air Laboratory Results 11/30/23 08:04 12/03/23 07:38
--- NOTE | 2023-12-03 14:44 | Hospitalist Progress Note ---
Date of Service December 03, 2023 Assessment & Plan (1) Acute decompensated heart failure: Plan: Acute decompensated systolic heart failure with biventricular ICD placement status Complicated by valvular heart disease Has been receiving intravenous furosemide with good results Strict KEN's with daily weight and CHF education Restrict fluid to 1.5 L Appreciate cardiology input and recommendation Will continue current management Clinically a little better but still remains significant symptomatic with movement -1852 mL so far Creatinine slightly elevated today but will get 60 mg of IV Lasix Like to be discharged in a day or 2 Still remains quite symptomatic Started on intravenous Lasix 80 mg twice daily from today Will monitor I's and O's and also kidney functions Urine output is not appropriate with the current doses of Lasix as creatinine is going up Discussed with the accountant supervisor and will start Lasix drip Nephrology consulted for deteriorating kidney function Mildly increased troponin-demand ischemia Likely secondary to stress and also is complicated by renal impairment Doubt any ACS (2) Bilateral edema of lower extremity: Plan: Secondary to CHF Not improving and will start intravenous Lasix drip (3) Pulmonary edema: Plan: Management as above (4) S/P implantation of automatic cardioverter/defibrillator (AICD): Plan: Known systolic heart failure and has a biventricular ICD placed Echo demonstrates severely reduced EF not sure about the last echo findings Has severe MR Has had 17 beats of V. tach on monitoring tech-cardiology aware Will continue with beta-juanito (5) MARTIN (acute kidney injury): Plan: Creatinine noted to be high at presentation Could be his baseline-could not be found in epic system Not sure about chronic kidney disease status Creatinine has been going up-went up to 1.82 from 1.70 on admission He will get Lasix 60 mg IV today and will have recheck of PRP tomorrow Nephrology consulted for further evaluation and recommendation as kidney func tion has been deteriorating (6) H/O valvular heart disease: (7) Atrial fibrillation: Plan: Heart rate is controlled with current medication Continue Toprol-XL with increasing dose to control increased ectopy Continue anticoagulation with warfarin INR is 2.5 today and he will have half the dose of regular Coumadin today Will monitor INR (8) HTN (hypertension): Plan: Blood pressure remains controlled with current medication Blood pressure remains on the lower side at 103/66 Blood pressure remains on the lower side (9) BPH (benign prostatic hyperplasia): Admission and Anticipated Discharge Date Admission Date: November 29, 2023 Subjective 11/30/2023 The patient was seen and examined in telemetry unit He has been feeling much better since admission His leg swelling is improving and also shortness of breath has improved a lot Denies any chest pain and/or palpitation 12/01/2023 The patient was seen and examined in telemetry unit He has been feeling little better Still has significant short of breath with exertion Leg edema is improving a little Denies any chest pain and/or palpitation 12/02/2023 The patient was seen and examined in telemetry unit He has been feeling a little better but he still remains quite symptomatic Leg swellings are not any better Denies any chest pain and/or palpitation 12/03/2023 The patient was seen and examined in telemetry unit He remains shortness of breath at rest and with minimal exertion His legs are worse No significant urine output with Lasix 80 mg IV twice daily Denies any chest pain and/or palpitation Review of Systems Review of Systems: All systems reviewed and are unremarkable except as noted below Physical Exam Physical Exam: Sitting on on a chair with moderate shortness of breath at rest Constitutional: well developed, well nourished, + ill appearing and + obese Eyes: PERRL, conjunctivae normal, anicteric sclerae ENMT: external ear and nose normal, oropharynx normal Neck: trachea midline, no thyromegaly Respiratory: no respiratory distress Auscultation: + diminished lung sounds and + crackles (Bibasilar crackles) Cardiovascular: Rate/Rhythm: regular rate, regular rhythm and + bradycardic Heart Sounds: normal S1, normal S2 and + murmur Extremities: + edema (2+ edema bilaterally with chronic skin changes) Gastrointestinal (Abdomen): Inspection/Auscultation: normal bowel sounds; abdomen not distended Percussion/Palpation: abdomen soft; abdomen nontender Neurologic: normal touch/pain/proprioception and moves all extremities; no focal motor deficits Psychiatric: A+Ox3, euthymic affect Lymphatic: no cervical or axillary lymphadenopathy Results & Data Results & Data Vital Signs (Past 12 Hours) Vital Signs Pulse Pulse Resp BP Pulse Ox O2 Del Method 12/03/23 10:04 56 L 23 114/73 91 Room Air 12/03/23 08:00 94 H 12/03/23 08:00 Room Air 12/03/23 07:56 64 22 99/79 L 96 Room Air 12/03/23 03:41 80 20 122/82 90 Room Air Laboratory Results BMP 12/03/23 07:38 Sodium 135 L Potassium 4.4 Chloride 98 Carbon Dioxide 29 BUN 58 H Creatinine 2.12 H Glucose 127 H Calcium 9.2 Medications Administered Current Inpatient Medications Acetaminophen (Acetaminophen 325 Mg Tab) 650 mg PO Q4H PRN PRN Reason: Pain or Fever Stop: 12/29/23 23:03 Atorvastatin Calcium (Atorvastatin 20 Mg Tab) 20 mg PO HS EDMAR Stop: 12/29/23 23:03 Last Admin: 12/02/23 21:46 Dose: 20 mg Calcium Polycarbophil (Calcium Polycarbophil 625mg Tab) 625 mg PO BID EDMAR Stop: 12/30/23 09:29 Last Admin: 12/03/23 08:39 Dose: 625 mg Finasteride (Finasteride 5 Mg Tab) 5 mg PO HS [facility] Stop: 12/29/23 23:19 Last Admin: 12/02/23 21:46 Dose: 5 mg Promethazine HCl 6.25 mg/ (Sodium Chloride) 50.25 mls @ 201 mls/hr IV Q6H PRN PRN Reason: Nausea And Vomiting Stop: 12/29/23 22:05 Furosemide 100 mg/ Sodium (Chloride) 100 mls @ 5 mls/hr IV .Q20H EDMAR Stop: 01/02/24 11:44 Last Admin: 12/03/23 12:36 Dose: 5 mg/hr, 5 mls/hr Metoprolol Succinate (Metoprolol Succ 25mg Ext Rel Tab) 25 mg PO BID EDMAR Stop: 12/30/23 20:59 Last Admin: 12/03/23 08:39 Dose: 25 mg Multivitamins (Multivitamin Tab) 1 tab PO DAILY EDMAR Stop: 12/30/23 08:59 Last Admin: 12/03/23 08:39 Dose: 1 tab Oxycodone HCl (Oxycodone Hcl Ir 5 Mg Tab (Immediate Release)) 5 mg PO Q4H PRN PRN Reason: Pain Stop: 12/13/23 22:05 Pantoprazole Sodium (Pantoprazole 40 Mg Tab) 40 mg PO BID EDMAR Stop: 12/29/23 23:19 Last Admin: 12/03/23 08:39 Dose: 40 mg Tamsulosin HCl (Tamsulosin Hcl 0.4 Mg Cap) 0.4 mg PO BID [facility] Stop: 12/29/23 23:19 Last Admin: 12/03/23 08:39 Dose: 0.4 mg Vitamin B Complex (Vitamin B Complex Tab) 1 tab PO DAILY [facility] Stop: 12/30/23 08:59 Last Admin: 12/03/23 08:39 Dose: 1 tab Warfarin Sodium (Warfarin Sod 2.5 Mg Tab) 2.5 mg PO [email or web address]@1600 [facility] Stop: 01/01/24 15:59 Last Admin: 12/03/23 08:45 Dose: Not Given Warfarin Sodium (Warfarin Sod 1.25 Mg Tab) 1.25 mg PO [email or web address]@1600 [facility] Stop: 01/03/24 15:59
[2023-12-03] MEDS: metOLazone 2.5 MG TABLET PO SCH (17:26)
[2023-12-03] MEDS: LORazepam 0.5 MG TAB PO STA (23:44)
[2023-12-04 07:48] LABS: BUN Creatinine Ratio 28.9 (10-20); Calcium 9.1 mg/dl (8.6-10.3); Creatinine Clr Calc Pharmacy 35.5 ml/min; Est GFR (African American) 32.9 ml/min; Est GFR (Non-African American) 28.4 ml/min; Phosphorus 4.7 mg/dl (2.5-4.9); Potassium 3.5 mmol/L (3.5-5.1)
[2023-12-04 08:03] LABS: INR 3.9 (0.9-1.1); Prothrombin Time 37.2 Seconds (9.0-12.0)
[2023-12-04] MEDS: WARFARIN SOD 1.25 MG TAB PO SCH (08:36)
--- NOTE | 2023-12-04 08:56 | Nephrology Progress Note ---
Date of Service December 04, 2023 Assessment & Plan (1) MARTIN (acute kidney injury): Plan: MARTIN on CKD w/ unknown baseline 2/2 Decompensated heart failure Vs progression of CKD. -He has been making @ 1.5--2 L of urine daily but continue to be grossly overloaded. Just started lasix gtt and daily metolazone yesterday - His renal function may decline w. diuresis, but we have to accept this. His baseline cr may prove to be higher. - Keep k > 4 and mg > 2 - At the moment he is responding to the diuretics,dialysis is not indicated. - we will continue to review this daily. - Daily I/O, daily weight preferably on the same scale - Avoid any ACR/arb at the moment. (2) Acute decompensated heart failure: Plan: standing wt 111.8 on 11/29 and 111.7 on 12/03 -continue lasix gtt but increase rate to 8 mg hourly -continue zaroxolyn -will start standing K 20 mEq bid w/ 40 Meq x 1 now >>when I check back late in day, diuresis appeared to be more brisk which is good >> 2L negative so far (3) Atrial fibrillation: Plan: heightens renal risk Admission and Anticipated Discharge Date Admission Date: November 29, 2023 Subjective sleeping in chair and poor rest, some PND; dypsneic w/ speech; wts not changing much; taking minimal po; ongoing edema minimal improvement when seen midday rounds Review of Systems 2 Review of Systems: All systems reviewed & are unremarkable except as noted in Subjective Physical Exam 2 Constitutional: well developed and well nourished Eyes: EOM intact bilaterally ENMT: Ears: no external ear abnormality Nose: no external nose abnormality Mouth: + dry oral mucous membranes Neck: no nuchal rigidity Respiratory: + labored breathing (slight), able to sp eak in complete sentences (but gasps/pauses after 2nd-3rd sentence) and + abnormal respiratory pattern; no respiratory distress and no cough Auscultation: + breath sounds absent (BL bases) and + diminished lung sounds Cardiovascular: Rate/Rhythm: + irregularly irregular Extremities: + edema (1+ bLE) Gastrointestinal (Abdomen): Inspection/Auscultation: normal bowel sounds P ercussion/Palpation: abdomen soft; abdomen nontender Musculoskeletal: Extremities: strength 5/5 throughout Skin: no rashes, warm and dry Neurologic: maynard, fluent speech, no tremor Psychiatric: Orientation: alert and oriented x 3 Results & Data Vital Signs (Past 12 Hours) Vital Signs Temp Pulse Pulse Resp BP Pulse Ox O2 Del Method 12/04/23 07:55 36.3 C L 69 20 120/61 94 Room Air 12/04/23 07:36 94 H 12/04/23 07:36 Room Air 12/04/23 03:31 36.6 C 83 20 115/72 95 Room Air 12/03/23 23:17 36.5 C 78 22 116/78 95 Room Air 12/03/23 21:58 73 Laboratory Results 11/30/23 08:04 12/04/23 06:20
[2023-12-04] MEDS: POTASSIUM CHLORIDE CRTAB 20 MEQ TABCR PO ONE (09:10)
--- NOTE | 2023-12-04 14:41 | Cardiology Progress Note ---
Date of Service December 04, 2023 Assessment & Plan (1) Acute decompensated heart failure: (2) H/O valvular heart disease: (3) Atrial fibrillation: (4) Bilateral edema of lower extremity: (5) S/P implantation of automatic cardioverter/defibrillator (AICD): Plan 1. Nonischemic cardiomyopathy -EF 25%; s/p BIV ICD 2. Acute on chronic systolic and diastolic CHF 3. Permanent atrial fibrillation Per outside records 4. Severe MR 5. BERNARDINO -noncompliant with CPAP 6. HTN 7. HLD 8. Acute on chronic kidney disease? -Records received, echocardiogram performed in 2022 revealed ejection fraction of 35 to 40% which was noted to be a little bit better than the previous, ejection fraction now down to the range of 20 to 25%, with severe mitral regurgitation is likely due to the underlying cardiomyopathy. -Nephrology input noted and appreciated, 1 to 1.5 L of urine output noted over the last few days, increase furosemide infusion to 8 mg/h and continue metolazone every 48 hours. -Coumadin on hold for INR of 3.9. -Cautiously add low-dose amiodarone 200 mg daily to suppress PVCs and for heart rate control to allow for therapeutic biventricular pacing. Patient has history of biventricular pacemaker AICD, Dennis device, placed in 2014, generator longevity down to 4 months. Question if patient is receiving much in the way of therapeutic pacing from the device, with basal pacing rate set at 55 bpm. Continue metoprolol, and amiodarone, and will consider adjusting device settings, with the knowledge that this may cause his battery to become depleted more quickly, but patient is prepared to have generator change when it is indicated as he has been aware that his general activity has been watched closely recently. Admission and Anticipated Discharge Date Admission Date: November 29, 2023 Subjective Patient seen in cardiology follow up. Patient feeling slightly improved compared to admission. Telemetry reveals rate controlled atrial fibrillation with frequent PVCs and 3 beat runs of NSVT. Physical Exam Constitutional: WD/WN, vitals as above well developed, well nourished and + edematous; no acute distress Eyes: PERRL, conjunctivae normal, anicteric sclerae Neck: normal visual inspection and trachea midline Respiratory: normal respiratory effort, lungs clear to auscultation normal respiratory effort; no respiratory distress and no cough Auscultation: lungs clear to auscultation bilaterally and + diminished lung sounds (bilateral bases ); no crackles, no rales, no rhonchi and no wheezes Cardiovascular: Rate/Rhythm: regular rate and + irregularly irregular Heart Sounds: normal S1, normal S2 and + murmur Vessels: dorsalis pedis pulses present; no JVD Extremities: + edema (2+ bilateral lower extremity edema) Gastrointestinal (Abdomen): Inspection/Auscultation: + abdomen distended Musculoskeletal: no cyanosis or clubbing, extremities motor strength 5/5 Skin: no rashes, warm and dry Psychiatric: A+Ox3, euthymic affect Affect: + anxious affect Results & Data Vital Signs (Past 12 Hours) Vital Signs Temp Pulse Pulse Resp BP Pulse Ox O2 Del Method 12/04/23 11:51 36.3 C L 94 H 19 103/69 92 Room Air 12/04/23 07:55 36.3 C L 69 20 120/61 94 Room Air 12/04/23 07:36 94 H 12/04/23 07:36 Room Air 12/04/23 03:31 36.6 C 83 20 115/72 95 Room Air Laboratory Results Coagulation 12/04/23 Range/Units 06:20 PT 37.2 H (9.0-12.0) Seconds Comprehensive Metabolic Panel 12/04/23 Range/Units 06:20 Sodium 135 L (136-145) mmol/L Potassium 3.5 D (3.5-5.1) mmol/L Chloride 95 L (98-107) mmol/L Carbon Dioxide 30 (21-32) mmol/L BUN 63 H (6-23) mg/dl Creatinine 2.18 H (0.6-1.4) mg/dl Glucose 108 H (70-99(Fasting)) mg/dl Calcium 9.1 (8.6-10.3) mg/dl Intake and Output 12/03/23 12/04/23 12/04/23 22:59 06:59 14:59 Intake Total 700 / 1565.417 85.417 / 1565.417 17.417 / 17.417 Output Total 375 / 2326 1500 / 2326 1900 / 1900 Balance 325 / -760.583 -1414.583 / -760.583 -1882.583 / -1882.583 Intake: IV 85.417 / 85.417 17.417 / 17.417 Furosemide 100 mg In 0.9 % 85.417 / 85.417 17.417 / 17.417 Sodium Chloride 90 ml @ 8 MG/HR 8 mls/hr IV .[id number] [facility] Rx#: [id number] Oral 700 / 1480 Output: Urine 375 / 2325 1500 / 2325 1900 / 1900 Other: # Unmeasured Voids 2 Weight 111.7 kg Weight Measurement Method Standing Scale
[2023-12-04] MEDS: AMIODARONE 200 MG TAB PO SCH (15:39)
--- NOTE | 2023-12-04 16:12 | Hospitalist Progress Note ---
Date of Service December 04, 2023 Assessment & Plan (1) Acute decompensated heart failure: Plan: Acute decompensated systolic heart failure with biventricular ICD placement status Complicated by valvular heart disease Has been receiving intravenous furosemide with good results Strict KEN's with daily weight and CHF education Restrict fluid to 1.5 L Appreciate cardiology input and recommendation Will continue current management Clinically a little better but still remains significant symptomatic with movement -1852 mL so far Creatinine slightly elevated today but will get 60 mg of IV Lasix Like to be discharged in a day or 2 Still remains quite symptomatic Started on intravenous Lasix 80 mg twice daily from today Will monitor I's and O's and also kidney functions Urine output is not appropriate with the current doses of Lasix as creatinine is going up Discussed with the extracorporeal technician and will start Lasix drip Nephrology consulted for deteriorating kidney function Has been improving with intravenous Lasix infusion-making out enough urine Will maintain strict input output chart and monitor electrolytes and kidney function Amiodarone has been added for better rhythm control Discussed with the family members and answered all of their questions Mildly increased troponin-demand ischemia Likely secondary to stress and also is complicated by renal impairment Doubt any ACS (2) Bilateral edema of lower extremity: Plan: Secondary to CHF Not improving and will start intravenous Lasix drip Has been on Lasix drips (3) Pulmonary edema: Plan: Management as above (4) S/P implantation of automatic cardioverter/defibrillator (AICD): Plan: Known systolic heart failure and has a biventricular ICD placed Echo demonstrates severely reduced EF not sure about the last echo findings Has severe MR Has had 17 beats of V. 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-cardiology aware Will continue with beta-juanito Amiodarone added from today (5) MARTIN (acute kidney injury): Plan: Creatinine noted to be high at presentation Could be his baseline-could not be found in epic system Not sure about chronic kidney disease status Creatinine has been going up-went up to 1.82 from 1.70 on admission He will get Lasix 60 mg IV today and will have recheck of PRP tomorrow Nephrology consulted for further evaluation and recommendation as kidney function has been deteriorating Appreciate nephrology input and recommendation (6) H/O valvular heart disease: (7) Atrial fibrillation: Plan: Heart rate is controlled with current medication Continue Toprol-XL with increasing dose to control increased ectopy Continue anticoagulation with warfarin INR is 2.5 today and he will have half the dose of regular Coumadin today Will monitor INR-3.9, will hold Coumadin for today (8) HTN (hypertension): Plan: Blood pressure remains controlled with current medication Blood pressure remains on the lower side at 103/66 Blood pressure remains on the lower side (9) BPH (benign prostatic hyperplasia): Admission and Anticipated Discharge Date Admission Date: November 29, 2023 Subjective 11/30/2023 The patient was seen and examined in telemetry unit He has been feeling much better since admission His leg swelling is improving and also shortness of breath has improved a lot Denies any chest pain and/or palpitation 12/01/2023 The patient was seen and examined in telemetry unit He has been feeling little better Still has significant short of breath with exertion Leg edema is improving a little Denies any chest pain and/or palpitation 12/02/2023 The patient was seen and examined in telemetry unit He has been feeling a little better but he still remains quite symptomatic Leg swellings are not any better Denies any chest pain and/or palpitation 12/03/2023 The patient was seen and examined in telemetry unit He remains shortness of breath at rest and with minimal exertion His legs are worse No significant urine output with Lasix 80 mg IV twice daily Denies any chest pain and/or palpitation 12/04/23 The patient was seen and examined in telemetry unit in presence of the family members He has been feeling little better since intravenous Lasix infusion has been started Making out enough urine Denies any chest pain and/or palpitation Review of Systems Review of Systems: All systems reviewed and are unremarkable except as noted below Physical Exam Physical Exam: Sitting on on a chair with moderate shortness of breath at rest Constitutional: well developed, well nourished, + ill appearing and + obese Eyes: PERRL, conjunctivae normal, anicteric sclerae ENMT: external ear and nose normal, oropharynx normal Neck: trachea midline, no thyromegaly Respiratory: no respiratory distress Auscultation: + diminished lung sounds and + crackles (Bibasilar crackles) Cardiovascular: Rate/Rhythm: regular rate, regular rhythm and + bradycardic Heart Sounds: normal S1, normal S2 and + murmur Extremities: + edema (2+ edema bilaterally with chronic skin changes) Gastrointestinal (Abdomen): Inspection/Auscultation: normal bowel sounds; abdomen not distended Percussion/Palpation: abdomen soft; abdomen nontender Musculoskeletal: No acute arthritis involving any of the joints Neurologic: normal touch/pain/proprioception and moves all extremities; no focal motor deficits Psychiatric: A+Ox3, euthymic affect Lymphatic: no cervical or axillary lymphadenopathy Results & Data Results & Data Vital Signs (Past 12 Hours) Vital Signs Temp Pulse Pulse Resp BP Pulse Ox O2 Del Method 12/04/23 16:00 88 12/04/23 15:54 36.4 C L 75 20 106/69 97 Room Air 12/04/23 11:51 36.3 C L 94 H 19 103/69 92 Room Air 12/04/23 07:55 36.3 C L 69 20 120/61 94 Room Air 12/04/23 07:36 94 H 12/04/23 07:36 Room Air Laboratory Results [facility] 12/04/23 06:20 Sodium 135 L Potassium 3.5 D Chloride 95 L Carbon Dioxide 30 BUN 63 H Creatinine 2.18 H Glucose 108 H Calcium 9.1 Medications Administered Current Inpatient Medications Acetaminophen (Acetaminophen 325 Mg Tab) 650 mg PO Q4H PRN PRN Reason: Pain or Fever Stop: 12/29/23 23:03 Amiodarone HCl (Amiodarone 200 Mg Tab) 200 mg PO QAM [facility] Stop: 01/03/24 14:59 Last Admin: 12/04/23 15:39 Dose: 200 mg Atorvastatin Calcium (Atorvastatin 20 Mg Tab) 20 mg PO HS [facility] Stop: 12/29/23 23:03 Last Admin: 12/03/23 20:17 Dose: 20 mg Calcium Polycarbophil (Calcium Polycarbophil 625mg Tab) 625 mg PO BID EDMAR Stop: 12/30/23 09:29 Last Admin: 12/04/23 08:34 Dose: 625 mg Finasteride (Finasteride 5 Mg Tab) 5 mg PO HS [facility] Stop: 12/29/23 23:19 Last Admin: 12/03/23 20:17 Dose: 5 mg Promethazine HCl 6.25 mg/ (Sodium Chloride) 50.25 mls @ 201 mls/hr IV Q6H PRN PRN Reason: Nausea And Vomiting Stop: 12/29/23 22:05 Furosemide 100 mg/ Sodium (Chloride) 100 mls @ 8 mls/hr IV .[id number] [facility] Stop: 01/02/24 11:44 Last Infusion: 12/04/23 09:10 Dose: 8 mg/hr, 8 mls/hr Metolazone (Metolazone 2.5 Mg Tablet) 2.5 mg PO Q2D@1700 [facility] Stop: 01/02/24 16:44 Last Admin: 12/03/23 17:26 Dose: 2.5 mg Metoprolol Succinate (Metoprolol Succ 25mg Ext Rel Tab) 25 mg PO BID [facility] Stop: 12/30/23 20:59 Last Admin: 12/04/23 08:33 Dose: 25 mg Multivitamins (Multivitamin Tab) 1 tab PO DAILY [facility] Stop: 12/30/23 08:59 Last Admin: 12/04/23 08:34 Dose: 1 tab Oxycodone HCl (Oxycodone Hcl Ir 5 Mg Tab (Immediate Release)) 5 mg PO Q4H PRN PRN Reason: Pain Stop: 12/13/23 22:05 Pantoprazole Sodium (Pantoprazole 40 Mg Tab) 40 mg PO BID [facility] Stop: 12/29/23 23:19 Last Admin: 12/04/23 08:34 Dose: 40 mg Potassium Chloride (Potassium Chloride Crtab 20 Meq Tabcr) 20 meq PO BID [facility] Stop: 01/03/24 20:59 Tamsulosin HCl (Tamsulosin Hcl 0.4 Mg Cap) 0.4 mg PO BID [facility] Stop: 12/29/23 23:19 Last Admin: 12/04/23 08:33 Dose: 0.4 mg Vitamin B Complex (Vitamin B Complex Tab) 1 tab PO DAILY [facility] Stop: 12/30/23 08:59 Last Admin: 12/04/23 08:33 Dose: 1 tab Warfarin Sodium (Warfarin Sod 2.5 Mg Tab) 2.5 mg PO [email or web address]@1600 [facility] Stop: 01/01/24 15:59 Last Admin: 12/03/23 08:45 Dose: Not Given Warfarin Sodium (Warfarin Sod 1.25 Mg Tab) 1.25 mg PO [email or web address]@1600 [facility] Stop: 01/03/24 15:59 Last Admin: 12/04/23 08:36 Dose: Not Given
[2023-12-04] MEDS: POTASSIUM CHLORIDE CRTAB 20 MEQ TABCR PO SCH (20:10)
[2023-12-05 06:52] LABS: BUN Creatinine Ratio 30.6 (10-20); Calcium 9.4 mg/dl (8.6-10.3); Creatinine Clr Calc Pharmacy 35.4 ml/min; Est GFR (African American) 32.7 ml/min; Est GFR (Non-African American) 28.2 ml/min; Magnesium 1.9 mg/dl (1.7-2.4); Potassium 3.2 mmol/L (3.5-5.1)
[2023-12-05 07:07] LABS: Prothrombin Time 29.7 Seconds (9.0-12.0)
[2023-12-05] MEDS: POTASSIUM CHLORIDE CRTAB 20 MEQ TABCR PO STA (10:31)
--- NOTE | 2023-12-05 13:36 | Nephrology Progress Note ---
Date of Service December 05, 2023 Assessment & Plan (1) MARTIN (acute kidney injury): Plan: MARTIN on CKD w/ unknown baseline 2/2 Decompensated heart failure Vs progression of CKD. -He has been making @ 1.5--2 L of urine daily but continue to be grossly overloaded. on 12/02 started lasix gtt and daily metolazone - His renal function may decline w. diuresis, but we have to accept this. His baseline cr may prove to be higher. - Keep k > 4 and mg > 2 - At the moment he is responding to the diuretics,dialysis is not indicated. - we will continue to review this daily. - Daily I/O, daily weight preferably on the same scale all to continue - Avoid any ACR/arb at the moment. Care coordinated w/ Dr Méndez regarding rhythm control strategies, diuretic dosing; we are in agreement. (2) Acute decompensated heart failure: Plan: standing wt 111.8 on 11/29 and 111.7 on 12/03 and 111.5 on 12/04; unacceptably slow diuresis -continue lasix gtt but increase rate further to 10 mg hourly -continue zaroxolyn but increase frequency to bid 17 (1700 dose to be given late today only so can get bothdoses in today -will increase standing K 20 mEq bid to 40 mEq qid (3) Atrial fibrillation: Plan: heightens renal risk; cardiology following and considering EP intervention/review Admission and Anticipated Discharge Date Admission Date: November 29, 2023 Subjective slept better. still struggling to chew food. breathing and swelling better but still noticeably challenging to him. Review of Systems 2 Review of Systems: All systems reviewed & are unremarkable except as noted in Subjective Physical Exam 2 Constitutional: well developed and well nourished Eyes: EOM intact bilaterally ENMT: Ears: no external ear abnormality Nose: no external nose abnormality Mouth: + dry oral mucous membranes Neck: no nuchal rigidity Respiratory: + labored breathing (at times, less than yesterday), able to speak in complete sentences and + abnormal respiratory pattern; no respiratory distress and no cough Auscultation: + breath sounds absent (BL bases) and + diminished lung sounds Cardiovascular: Rate/Rhythm: + irregularly irregular Extremities: + edema (1+ bLE) Gastrointestinal (Abdomen): Inspection/Auscultation: normal bowel sounds P ercussion/Palpation: abdomen soft; abdomen nontender Musculoskeletal: Extremities: strength 5/5 throughout Skin: no rashes, warm and dry Psychiatric: Orientation: alert and oriented x 3 Results & Data Vital Signs (Past 12 Hours) Vital Signs Temp Pulse Pulse Resp BP Pulse Ox O2 Del Method 12/05/23 11:30 36.3 C L 51 L 18 110/69 97 Room Air 12/05/23 08:12 83 12/05/23 07:33 69 20 113/74 92 Room Air 12/05/23 07:30 Room Air 12/05/23 03:24 36.5 C 86 18 115/55 L 95 Room Air Laboratory Results 11/30/23 08:04 12/05/23 05:29
[2023-12-05] MEDS ORDERED: Nursing to Pharmacy Communication SCH (14:15)
--- NOTE | 2023-12-05 15:52 | Cardiology Progress Note ---
Date of Service December 05, 2023 Assessment & Plan (1) Acute decompensated heart failure: (2) H/O valvular heart disease: (3) Atrial fibrillation: (4) Bilateral edema of lower extremity: (5) S/P implantation of automatic cardioverter/defibrillator (AICD): Plan 1. Nonischemic cardiomyopathy -EF 25%; s/p BIV ICD 2. Acute on chronic systolic and diastolic CHF 3. Permanent atrial fibrillation Per outside records 4. Severe MR 5. BERNARDINO -noncompliant with CPAP 6. HTN 7. HLD 8. Acute on chronic kidney disease? -Records received, echocardiogram performed in 2022 revealed ejection fraction of 35-40% which was noted to be a little bit better than the previous, ejection fraction now down to the range of 20- 25%, with severe mitral regurgitation is likely due to the underlying cardiomyopathy. -Continue metolazone, furosemide infusion increased to 10 mg/h -INR has trended down from 3.9 on 12/04/2019 4-3.0 on 12/05/2023. Amiodarone 200 mg daily added for suppression of ventricular ectopy and to promote biventricular pacing, first dose on 12/04/2023, will increase to 200 mg twice daily.Transaminases, TSH within normal meds earlier this hospital stay. Patient has history of biventricular pacemaker AICD, Dennis device, placed in 2014, generator longevity down to 4 months. Question if patient is receiving much in the way of therapeutic pacing from the device, with basal pacing rate set at 55 bpm. Continue metoprolol, and amiodarone, and will consider adjusting device settings, with the knowledge that this may cause his battery to become depleted more quickly, but patient is prepared to have generator change when it is indicated as he has been aware that his general activity has been watched closely recently. Admission and Anticipated Discharge Date Admission Date: November 29, 2023 Subjective Patient seen in cardiology follow-up of shortness of breath, lower extreme edema, volume overload symptoms. Sitting in bedside chair. Still with significant edema and decreased breath sounds at the bases, patient however does feel subjectively improved compared to when he was admitted. A 32 beat run of nonsustained ventricular tachycardia was noted the afternoon of 12/04/2023. Thus far today atrial fibrillation in the 90s noted with frequent PVCs, and occasional ventricular runs of 2-3 beats in duration. Patient is asymptomatic with regards to the ectopy. Physical Exam Constitutional: WD/WN, vitals as above well developed, well nourished and + edematous; no acute distress Eyes: PERRL, conjunctivae normal, anicteric sclerae Neck: normal visual inspection and trachea midline Respiratory: normal respiratory effort, lungs clear to auscultation normal respiratory effort; no respiratory distress and no cough Auscultation: lungs clear to auscultation bilaterally and + diminished lung sounds (bilateral bases ); no crackles, no rales, no rhonchi and no wheezes Cardiovascular: Rate/Rhythm: regular rate and + irregularly irregular Heart Sounds: normal S1, normal S2 and + murmur Vessels: dorsalis pedis pulses present; no JVD Extremities: + edema (2+ bilateral lower extremity edema) Gastrointestinal (Abdomen): Inspection/Auscultation: + abdomen distended Musculoskeletal: no cyanosis or clubbing, extremities motor strength 5/5 Skin: no rashes, warm and dry Psychiatric: A+Ox3, euthymic affect Affect: + anxious affect Results & Data Vital Signs (Past 12 Hours) Vital Signs Temp Pulse Pulse Resp BP Pulse Ox O2 Del Method 12/05/23 11:30 36.3 C L 51 L 18 110/69 97 Room Air 12/05/23 08:12 83 12/05/23 07:33 69 20 113/74 92 Room Air 12/05/23 07:30 Room Air Laboratory Results Coagulation 12/05/23 Range/Units 05:29 PT 29.7 H (9.0-12.0) Seconds Comprehensive Metabolic Panel 12/05/23 Range/Units 05:29 Sodium 137 (136-145) mmol/L Potassium 3.2 L (3.5-5.1) mmol/L Chloride 92 L (98-107) mmol/L Carbon Dioxide 34 H (21-32) mmol/L BUN 67 H (6-23) mg/dl Creatinine 2.19 H (0.6-1.4) mg/dl Glucose 105 H (70-99(Fasting)) mg/dl Calcium 9.4 (8.6-10.3) mg/dl Intake and Output 12/05/23 12/05/23 12/05/23 06:59 14:59 22:59 Intake Total 94.8 / 1074.800 360 / 610 250 / 610 Output Total 2100 / 4002 1301 / 1901 600 / 1901 Balance -2005.2 / -2927.200 -941 / -1291 -350 / -1291 Intake: IV 94.8 / 194.800 Furosemide 100 mg In 0.9 % 94.8 / 194.800 Sodium Chloride 90 ml @ 10 MG/ HR 10 mls/hr IV .Q10H [facility] Rx#: [id number] Oral 360 / 610 250 / 610 Output: Urine 2100 / 4000 1300 / 1900 600 / 1900 # Bowel Movements Other: Weight 111.5 kg Weight Measurement Method Standing Scale
--- NOTE | 2023-12-05 16:21 | Hospitalist Progress Note ---
Date of Service December 05, 2023 Assessment & Plan (1) Acute decompensated heart failure: Plan: Acute decompensated systolic heart failure with biventricular ICD placement status Complicated by valvular heart disease Has been receiving intravenous furosemide with good results Strict KEN's with daily weight and CHF education Restrict fluid to 1.5 L Appreciate cardiology input and recommendation Will continue current management Clinically a little better but still remains significant symptomatic with movement -1852 mL so far Creatinine slightly elevated today but will get 60 mg of IV Lasix Like to be discharged in a day or 2 Still remains quite symptomatic Started on intravenous Lasix 80 mg twice daily from today Will monitor I's and O's and also kidney functions Urine output is not appropriate with the current doses of Lasix as creatinine is going up Discussed with the restaurant area manager and will start Lasix drip Nephrology consulted for deteriorating kidney function He continues to improve with intravenous Lasix So for more than 6000 mL of negative balance Will continue current diuresis Will get PT and OT involved Mildly increased troponin-demand ischemia Likely secondary to stress and also is complicated by renal impairment Doubt any ACS (2) Bilateral edema of lower extremity: Plan: Secondary to CHF Not improving and will start intravenous Lasix drip Has been on Lasix drips (3) Pulmonary edema: Plan: Management as above (4) S/P implantation of automatic cardioverter/defibrillator (AICD): Plan: Known systolic heart failure and has a biventricular ICD placed Echo demonstrates severely reduced EF not sure about the last echo findings Has severe MR Has had 17 beats of V. tach on heater tender-cardiology aware Will continue with beta-juanito Amiodarone added from 12/04/2023 Decreasing incidence of ectopy since amiodarone has been added (5) MARTIN (acute kidney injury): Plan: Creatinine noted to be high at presentation Could be his baseline-could not be found in epic system Not sure about chronic kidney disease status Creatinine has been going up-went up to 1.82 from 1.70 on admission He will get Lasix 60 mg IV today and will have recheck of PRP tomorrow Nephrology consulted for further evaluation and recommendation as kidney function has been deteriorating Appreciate nephrology input and recommendation Creatinine remains stable at 2.19 with BUN of 67 stable too Will monitor electrolytes and kidney function (6) H/O valvular heart disease: (7) Atrial fibrillation: Plan: Heart rate is controlled with current medication Continue Toprol-XL with increasing dose to control increased ectopy Continue anticoagulation with warfarin INR is 2.5 today and he will have half the dose of regular Coumadin today Will monitor INR-3.9, will hold Coumadin for today INR is 3.0 today and Coumadin will be restarted (8) HTN (hypertension): Plan: Blood pressure remains controlled with current medication Blood pressure remains on the lower side at 103/66 Blood pressure remains on the lower side Blood pressure remains stable and at the lower side at 110/72 (9) BPH (benign prostatic hyperplasia): Admission and Anticipated Discharge Date Admission Date: November 29, 2023 Subjective 11/30/2023 The patient was seen and examined in telemetry unit He has been feeling much better since admission His leg swelling is improving and also shortness of breath has improved a lot Denies any chest pain and/or palpitation 12/01/2023 The patient was seen and examined in telemetry unit He has been feeling little better Still has significant short of breath with exertion Leg edema is improving a little Denies any chest pain and/or palpitation 12/02/2023 The patient was seen and examined in telemetry unit He has been feeling a little better but he still remains quite symptomatic Leg swellings are not any better Denies any chest pain and/or palpitation 12/03/2023 The patient was seen and examined in telemetry unit He remains shortness of breath at rest and with minimal exertion His legs are worse No significant urine output with Lasix 80 mg IV twice daily Denies any chest pain and/or palpitation 12/04/23 The patient was seen and examined in telemetry unit in presence of the family members He has been feeling little better since intravenous Lasix infusion has been started Making out enough urine Denies any chest pain and/or palpitation 12/05/2023 The patient was seen and examined in telemetry unit He has been little better with more diuresis on intravenous Lasix infusion Denies any chest pain and/or palpitation Decreasing ectopy on adding amiodarone Review of Systems Review of Systems: All systems reviewed and are unremarkable except as noted below Physical Exam Physical Exam: Sitting on on a chair with moderate shortness of breath at rest Constitutional: well developed, well nourished, + ill appearing and + obese Eyes: PERRL, conjunctivae normal, anicteric sclerae ENMT: external ear and nose normal, oropharynx normal Neck: trachea midline, no thyromegaly Respiratory: no respiratory distress Auscultation: + diminished lung sounds and + crackles (Bibasilar crackles) Cardiovascular: Rate/Rhythm: regular rate, regular rhythm and + bradycardic Heart Sounds: normal S1, normal S2 and + murmur Extremities: + edema (1+ edema bilaterally with chronic skin changes) Gastrointestinal (Abdomen): Inspection/Auscultation: normal bowel sounds; abdomen not distended Percussion/Palpation: abdomen soft; abdomen nontender Neurologic: normal touch/pain/proprioception and moves all extremities; no foc al motor deficits Psychiatric: A+Ox3, euthymic affect Lymphatic: no cervical or axillary lymphadenopathy Results & Data Results & Data Vital Signs (Past 12 Hours) Vital Signs Temp Pulse Pulse Resp BP Pulse Ox O2 Del Method 12/05/23 16:00 96 H 12/05/23 15:59 36.5 C 78 20 110/72 96 Room Air 12/05/23 11:30 36.3 C L 51 L 18 110/69 97 Room Air 12/05/23 08:12 83 12/05/23 07:33 69 20 113/74 92 Room Air 12/05/23 07:30 Room Air Laboratory Results [facility] 12/05/23 05:29 Sodium 137 Potassium 3.2 L Chloride 92 L Carbon Dioxide 34 H BUN 67 H Creatinine 2.19 H Glucose 105 H Calcium 9.4 Medications Administered Current Inpatient Medications Acetaminophen (Acetaminophen 325 Mg Tab) 650 mg PO Q4H PRN PRN Reason: Pain or Fever Stop: 12/29/23 23:03 Amiodarone HCl (Amiodarone 200 Mg Tab) 200 mg PO BID EDMAR Stop: 01/04/24 16:59 Atorvastatin Calcium (Atorvastatin 20 Mg Tab) 20 mg PO HS EDMAR Stop: 12/29/23 23:03 Last Admin: 12/04/23 20:12 Dose: 20 mg Calcium Polycarbophil (Calcium Polycarbophil 625mg Tab) 625 mg PO BID EDMAR Stop: 12/30/23 09:29 Last Admin: 12/05/23 08:35 Dose: 625 mg Finasteride (Finasteride 5 Mg Tab) 5 mg PO HS EDMAR Stop: 12/29/23 23:19 Last Admin: 12/04/23 20:11 Dose: 5 mg Promethazine HCl 6.25 mg/ (Sodium Chloride) 50.25 mls @ 201 mls/hr IV Q6H PRN PRN Reason: Nausea And Vomiting Stop: 12/29/23 22:05 Furosemide 100 mg/ Sodium (Chloride) 100 mls @ 10 mls/hr IV .Q10H [facility] Stop: 01/02/24 11:44 Last Admin: 12/05/23 06:23 Dose: 8 mg/hr, 8 mls/hr Metolazone (Metolazone 2.5 Mg Tablet) 2.5 mg PO BID17 [facility] Stop: 01/04/24 16:59 Metolazone (Metolazone 2.5 Mg Tablet) 2.5 mg PO TODAY@1900 ONE Stop: 12/05/23 19:01 Metoprolol Succinate (Metoprolol Succ 25mg Ext Rel Tab) 25 mg PO BID [facility] Stop: 12/30/23 20:59 Last Admin: 12/05/23 08:35 Dose: 25 mg Multivitamins (Multivitamin Tab) 1 tab PO DAILY [facility] Stop: 12/30/23 08:59 Last Admin: 12/05/23 08:35 Dose: 1 tab Oxycodone HCl (Oxycodone Hcl Ir 5 Mg Tab (Immediate Release)) 5 mg PO Q4H PRN PRN Reason: Pain Stop: 12/13/23 22:05 Pantoprazole Sodium (Pantoprazole 40 Mg Tab) 40 mg PO BID [facility] Stop: 12/29/23 23:19 Last Admin: 12/05/23 08:35 Dose: 40 mg Potassium Chloride (Potassium Chloride Crtab 20 Meq Tabcr) 40 meq PO QID [facility] Stop: 01/04/24 13:39 Tamsulosin HCl (Tamsulosin Hcl 0.4 Mg Cap) 0.4 mg PO BID [facility] Stop: 12/29/23 23:19 Last Admin: 12/05/23 08:35 Dose: 0.4 mg Vitamin B Complex (Vitamin B Complex Tab) 1 tab PO DAILY [facility] Stop: 12/30/23 08:59 Last Admin: 12/05/23 08:35 Dose: 1 tab Warfarin Sodium (Warfarin Sod 2 Mg Tab) 2 mg PO DAILY@1600 [facility] Stop: 01/04/24 15:59
[2023-12-05] MEDS: WARFARIN SOD 2 MG TAB PO SCH (16:52)
[2023-12-05] MEDS: POTASSIUM CHLORIDE CRTAB 20 MEQ TABCR PO SCH (16:52)
[2023-12-05] MEDS: AMIODARONE 200 MG TAB PO SCH (16:53)
[2023-12-05] MEDS: metOLazone 2.5 MG TABLET PO ONE (18:41)
[2023-12-06 06:49] LABS: BUN Creatinine Ratio 30.4 (10-20); Creatinine Clr Calc Pharmacy 31.8 ml/min; Est GFR (African American) 29.7 ml/min; Est GFR (Non-African American) 25.6 ml/min; Potassium 3.4 mmol/L (3.5-5.1)
[2023-12-06 07:19] LABS: INR 2.8 (0.9-1.1); Prothrombin Time 27.6 Seconds (9.0-12.0)
[2023-12-06] MEDS: metOLazone 2.5 MG TABLET PO SCH (08:14)
--- NOTE | 2023-12-06 09:03 | Cardiology Progress Note ---
Date of Service December 06, 2023 Assessment & Plan (1) Acute decompensated heart failure: (2) H/O valvular heart disease: (3) Atrial fibrillation: (4) Bilateral edema of lower extremity: (5) S/P implantation of automatic cardioverter/defibrillator (AICD): Plan 1. Nonischemic cardiomyopathy -EF 25%; s/p BIV ICD 2. Acute on chronic systolic and diastolic CHF 3. Permanent atrial fibrillation Per outside records 4. Severe MR 5. BERNARDINO -noncompliant with CPAP 6. HTN 7. HLD 8. Acute on chronic kidney disease? -Records received, echocardiogram performed in 2022 revealed ejection fraction of 35-40% which was noted to be a little bit better than the previous, ejection fraction now down to the range of 20- 25%, with severe mitral regurgitation is likely due to the underlying cardiomyopathy. -Continue metolazone, furosemide infusion increased to 10 mg/h -INR has trended down from 3.9 on 12/04/2019 4-3.0 on 12/05/2023. Amiodarone 200 mg daily added for suppression of ventricular ectopy and to promote biventricular pacing, first dose on 12/04/2023, will increase to 200 mg twice daily.Transaminases, TSH within normal meds earlier this hospital stay. Patient has history of biventricular pacemaker AICD, Dennis device, placed in 2014, generator longevity down to 4 months. Question if patient is receiving much in the way of therapeutic pacing from the device, with basal pacing rate set at 55 bpm. Continue metoprolol, and amiodarone, and will consider adjusting device settings, with the knowledge that this may cause his battery to become depleted more quickly, but patient is prepared to have generator change when it is indicated as he has been aware that his general activity has been watched closely recently. 12/06/2023: Patient continues to show clinical improvement. Remains with modest volume overload; however, is diuresing well. Weights indicate a 7kg weight loss. -> 3 L of fluid. Renal function remains stable today, monitor closely. Nephrology involved in the case and in agreement to continue Furosemide gtt at 10mg/hour. Continue Metolazone 2.5mg BID as per nephrology recommendations. INR stable at 2.8. Continue Warfarin 2mg Daily Serum K 3.4. currently receiving Potassium Chloride 40meq QID. Goal serum K > 4.0 and Serum mag > 2.0. will continue Amiodarone 200mg PO BID at this time. Will continue to follow closely. Case has been discussed with Dr. Méndez. Further recommendations regarding plan of care as per his assessment. I spent a total of 30 minutes on the date of service in preparation, delivery, documentation of the care provided to the patient excluding any time spent in the performance of separately billed services. CHUCK Cordova [facility] Admission and Anticipated Discharge Date Admission Date: November 29, 2023 Supervising Physician Co-Signing Physician Notes Attending attestation: Case reviewed with the advanced practitioner. I have personally performed a history and physical examination on the patient. I have reviewed the advanced practitioner's documentation on the date of service referenced in note, and I agree with, and take responsibility for the plan of care. INR stable at 2.8. Coumadin dose adjusted given amiodarone treatment to 2 mg p.o. daily. Continue furosemide infusion 10 mg/h, metolazone, potassium chloride replacement. Holding WILLIE inhibitor/ARB/Entresto therapy given MARTIN. I spent a total of 20 minutes coordinating, documenting, and providing care for this patient excluding time spent in the performance of separately billed services or time spent by another provider. Miller Méndez DO Subjective 12/06/2023: Patient seen and examined in follow up today. Feeling continued improvement in his breathing and lower extremity edema. He is resting out of bed in a recliner chair without complaint. Labs, vitals, diagnostics, telemetry and documentation reviewed. Renal function is stable. Telemetry reviewed showing A-fib/Paced, Rates 60s. Frequent PVCs and multiple non-sustained valentina of VT. No runs longer than yesterday's which was approx 35 beats. Denies chest pain, pressure, palpitations, PND, pre-syncope or syncope -3646ml output. -7kg weight loss. Review of Systems Respiratory: + dyspnea (improved, continued dyspnea o n exertion ) and + wheezing (with exertion ) Cardiovascular: + dyspnea, + dyspnea on exertion and + e laina; no chest pain, no chest pain with activity, no palpitations, no lightheadedness and no syncope Physical Exam Constitutional: well developed and well nourished; no acute distress Neck: normal visual inspection and trachea midline Respiratory: normal respiratory effort; no respiratory distress and no cough Auscultation: lungs clear to auscultation bilaterally, + diminished lung sounds (bilateral bases ) and + wheezes (just after exertion. resolved after approx 5 minutes at rest); no crackles, no rales and no rhonchi Cardiovascular: Rate/Rhythm: + irregularly irregular Heart Sounds: normal S1, normal S2 and + murmur (+II/ systolic) Vessels: dorsalis pedis pulses present; no JVD Extremities: + edema (+2 BLE) Psychiatric: A+Ox3, euthymic affect Affect: + anxious affect Results & Data Vital Signs (Past 12 Hours) Vital Signs Temp Pulse Resp BP Pulse Ox O2 Del Method 12/06/23 08:00 36.4 C L 62 18 121/75 96 Room Air 12/06/23 02:31 36.7 C 67 20 111/75 97 Room Air 12/05/23 22:35 36.3 C L 82 20 112/75 91 Room Air Laboratory Results Coagulation 12/06/23 Range/Units 06:10 PT 27.6 H (9.0-12.0) Seconds Comprehensive Metabolic Panel 12/06/23 Range/Units 06:10 Sodium 139 (136-145) mmol/L Potassium 3.4 L (3.5-5.1) mmol/L Chloride 92 L (98-107) mmol/L Carbon Dioxide 36 H (21-32) mmol/L BUN 72 H (6-23) mg/dl Creatinine 2.37 H (0.6-1.4) mg/dl Glucose 107 H (70-99(Fasting)) mg/dl Calcium 10.0 (8.6-10.3) mg/dl Intake and Output 12/05/23 12/06/23 12/06/23 22:59 06:59 14:59 Intake Total 600.0 / 1304.333 344.333 / 1304.333 Output Total 1750 / 4951 1900 / 4951 Balance -1150.0 / -3646.667 -1555.667 / -3646.667 Intake: IV 100.0 / 194.333 94.333 / 194.333 Furosemide 100 mg In 0.9 % 100.0 / 194.333 94.333 / 194.333 Sodium Chloride 90 ml @ 10 MG/ HR 10 mls/hr IV .Q10H [facility] Rx#: [id number] Oral 500 / 1110 250 / 1110 Output: Urine 1750 / 4950 1900 / 4950 Other: Weight 105.6 kg Weight Measurement Method Standing Scale
--- NOTE | 2023-12-06 16:38 | Nephrology Progress Note ---
Date of Service December 06, 2023 Assessment & Plan (1) MARTIN (acute kidney injury): Plan: MARTIN on CKD w/ unknown baseline 2/2 Decompensated heart failure Vs progression of CKD. -He has been making @ 1.5--2 L of urine daily but continue to be grossly overloaded. on 12/02 started lasix gtt and daily metolazone - His renal function may decline w. diuresis, but we have to accept this. His baseline cr may prove to be higher. - Keep k > 4 and mg > 2 - At the moment he is responding to the diuretics,dialysis is not indicated. - we will continue to review this daily. - Daily I/O, daily weight preferably on the same scale all to continue - Avoid any WILLIE/arb at the moment. (2) Acute decompensated heart failure: Plan: standing wt 111.8 on 11/29 and 111.7 on 12/03 and 111.5 on 12/04; unacceptably slow diuresis > 105.6 kg today after intensifying diuretics further -continue lasix gtt 10 mg hourly -continue zaroxolyn w/ increased frequency bid 17 -will increase standing K 20 mEq bid to 40 mEq qid and further to 60 mEQ qid (already had extra 60 mEq dose today) (3) Atrial fibrillation: Plan: heightens renal risk; cardiology following and considering EP intervention/review Admission and Anticipated Discharge Date Admission Date: November 29, 2023 Subjective edema and exert breathing and sleep impropving. ep saw today worried about red feet Review of Systems 2 Review of Systems: All systems reviewed & are unremarkable except as noted in Subjective Physical Exam 2 Constitutional: well developed (sitting in recliner as previously) and well nourished Eyes: EOM intact bilaterally ENMT: Ears: no external ear abnormality Nose: no external nose abnormality Mouth: + dry oral mucous membranes Neck: no nuchal rigidity Respiratory: able to speak in complete sentences and + abnormal respiratory pattern; no respiratory distress, no labored breathing and no cough A uscultation: + breath sounds absent (BL bases) and + diminished lung sounds Cardiovascular: Rate/Rhythm: + irregularly irregular Extremities: + edema (1+ bLE) Gastrointestinal (Abdomen): Inspection/Auscultation: normal bowel sounds P ercussion/Palpation: abdomen soft; abdomen nontender Musculoskeletal: Extremities: strength 5/5 throughout Skin: no rashes, warm and dry Psychiatric: Orientation: alert and oriented x 3 Results & Data Vital Signs (Past 12 Hours) Vital Signs Temp Pulse Resp BP Pulse Ox Pulse Ox O2 Del Method 12/06/23 15:01 36.6 C 84 128/85 96 Room Air 12/06/23 13:39 95 12/06/23 12:04 36.6 C 50 L 18 118/90 98 Room Air 12/06/23 08:00 36.4 C L 62 18 121/75 96 Room Air O2 Flow Rate 12/06/23 15:01 12/06/23 13:39 0 12/06/23 12:04 12/06/23 08:00 Laboratory Results 11/30/23 08:04 12/06/23 06:10
[2023-12-06] MEDS: POTASSIUM CHLORIDE CRTAB 20 MEQ TABCR PO SCH (17:07)
--- NOTE | 2023-12-06 17:55 | Hospitalist Progress Note ---
Date of Service December 06, 2023 Assessment & Plan (1) Acute decompensated heart failure: Plan: Acute decompensated systolic heart failure with biventricular ICD placement status Complicated by valvular heart disease Nonischemic cardiomyopathy Severe mitral regurgitation --CXR:Cardiomegaly with pulmonary vascular congestion Small right and trace left pleural effusions. --ECHO: EF 20 to 25%. Diffuse hypokinesis to akinesis. Severe biatrial enlargement. Severe mitral regurgitation. Mild tricuspid regurgitation. Continue IV Lasix drip Also on metolazone 2.5 mg twice daily Monitor and replete electrolytes as needed Appreciate cardiology, nephrology input Continue fluid restriction Also on metoprolol Monitor volume status closely Mild Troponin elevation Likely demand ischemia, in setting of renal impairment Doubt any ACS (2) Bilateral edema of lower extremity: Plan: Management as above (3) Pulmonary edema: Plan: Management as above (4) S/P implantation of automatic cardioverter/defibrillator (AICD): Plan: Known systolic heart failure and has a biventricular ICD placed Echo as above NSVTs, PVCs Continue beta-juanito Also started on amiodarone Monitor and replace electrolytes as needed (5) MARTIN (acute kidney injury): Plan: 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 Unknown baseline Expected rise in creatinine given IV diuretics Avoid nephrotoxic agents as able Monitor urine output Appreciate nephrology input Monitor renal function (6) H/O valvular heart disease: (7) Atrial fibrillation: Plan: Continue amiodarone, metoprolol Continue Coumadin Monitor INR 2.8 today (8) HTN (hypertension): Plan: stable Continue current meds (9) BPH (benign prostatic hyperplasia): Plan: Continue Proscar, tamsulosin Plan DVT Px: Coumadin CODE STATUS Full code Admission and Anticipated Discharge Date Admission Date: November 29, 2023 Subjective Patient is seen and examined at bedside Reports having leg edema Also reports some dyspnea on exertion Currently on IV Lasix drip Sitting in chair comfortably during my encounter Denies any chest pain, nausea, vomiting, abdominal pain No other complaints Review of Systems Review of Systems: All systems reviewed & are unremarkable except as noted in Subjective Physical Exam Physical Exam: Physical Exam: Vitals signs as noted above General Appearance:Moderately built and nourished, no apparent distress Head: normocephalic, Atraumatic Eyes: normal inspection, EOMI Neck: supple, Trachea midline Respiratory/Chest: Decreased breath sounds, CTA, No accessory muscle use Cardiovascular: Irregularly irregular, + murmur Abdomen/GI:Soft, Non tender, Bowel sounds present Extremities/Musculoskeletal:normal inspection, + B/L LE edema Neurologic/Psych:AAOX3, grossly no focal neurological deficits Skin: normal color, warm Results & Data Results & Data Vital Signs (Past 12 Hours) Vital Signs Temp Pulse Resp BP Pulse Ox Pulse Ox O2 Del Method 12/06/23 15:01 36.6 C 84 128/85 96 Room Air 12/06/23 13:39 95 12/06/23 12:04 36.6 C 50 L 18 118/90 98 Room Air 12/06/23 08:00 36.4 C L 62 18 121/75 96 Room Air O2 Flow Rate 12/06/23 15:01 12/06/23 13:39 0 12/06/23 12:04 12/06/23 08:00 Laboratory Results [facility] 12/06/23 06:10 Sodium 139 Potassium 3.4 L Chloride 92 L Carbon Dioxide 36 H BUN 72 H Creatinine 2.37 H Glucose 107 H Calcium 10.0
[2023-12-07 07:48] LABS: Hemoglobin 17.5 g/dl (14.0-18.0); Mean Corpuscular Hemoglobin 29.2 pg (25.0-34.0); Mean Corpuscular Hgb Conc 33.7 g/dL (32.0-36.0); Mean Corpuscular Volume 86.7 fL (80.0-100.0); Mean Platelet Volume 11.9 fL (9.4-12.4); Nucleated RBC # (auto) 0.02 K/uL (0.00-0.12); Nucleated RBC % (auto) 0.2 %; Platelet Count 177 K/uL (130-400); RDW Standard Deviation 45.8 fL (36.4-46.3); White Blood Count 11.16 K/ul (4.8-10.8)
[2023-12-07 08:05] LABS: BUN Creatinine Ratio 32.2 (10-20); Calcium 10.3 mg/dl (8.6-10.3); Creatinine Clr Calc Pharmacy 30.4 ml/min; Est GFR (African American) 28.6 ml/min; Est GFR (Non-African American) 24.6 ml/min; Potassium 3.5 mmol/L (3.5-5.1)
[2023-12-07 08:10] LABS: INR 2.6 (0.9-1.1); Prothrombin Time 26.1 Seconds (9.0-12.0)
--- NOTE | 2023-12-07 09:37 | Cardiology Progress Note ---
Date of Service December 07, 2023 Assessment & Plan (1) Acute decompensated heart failure: (2) H/O valvular heart disease: (3) Atrial fibrillation: (4) Bilateral edema of lower extremity: (5) S/P implantation of automatic cardioverter/defibrillator (AICD): Plan 1. Nonischemic cardiomyopathy -EF 25%; s/p BIV ICD 2. Acute on chronic systolic and diastolic CHF 3. Permanent atrial fibrillation Per outside records 4. Severe MR 5. BERNARDINO -noncompliant with CPAP 6. HTN 7. HLD 8. Acute on chronic kidney disease? -Records received, echocardiogram performed in 2022 revealed ejection fraction of 35-40% which was noted to be a little bit better than the previous, ejection fraction now down to the range of 20- 25%, with severe mitral regurgitation is likely due to the underlying cardiomyopathy. Patient has history of biventricular pacemaker AICD, Dennis device, placed in 2014, generator longevity down to 4 months. Question if patient is receiving much in the way of therapeutic pacing from the device, with basal pacing rate set at 55 bpm. Continue metoprolol, and amiodarone, and will consider adjusting device settings, with the knowledge that this may cause his battery to become depleted more quickly, but patient is prepared to have generator change when it is indicated as he has been aware that his general activity has been watched closely recently. * Continue metoprolol succinate 25 mg twice daily, amiodarone 200 mg twice daily for rate control, PVCs/NSVT suppression. * INR 2.6 on 12/07/2023, dose of warfarin previously adjusted to 2 mg daily given amiodarone treatment * Slow but steady progress with aggressive diuresis, continue furosemide infusion, 10 mg/h, metolazone 2.5 mg twice daily, potassium chloride 60 mill equivalents p.o. 4 times daily. Admission and Anticipated Discharge Date Admission Date: November 29, 2023 Subjective Patient seen in cardiology follow-up of shortness of breath, congestive heart failure. Remains dyspneic with minimal walking, but has made progress over the last week. He believes that his lower legs are less swollen today even compared to yesterday and I agree with this, still with significant pedal edema and erythema however. Fluid balance -3.3 L in the last 24 hours and if weights are accurate, he weighed 112.7 kg on presentation, 11/29/2023 and is down to 103.4 kg today. Telemetry reveals ongoing rate controlled atrial fibrillation with frequent brief runs of nonsustained ventricular tachycardia, longest run in the last 24 hours was 10 beats in duration, asymptomatic. He is sitting in a recliner and states that he sleeps upright in a recliner at home mostly related to issues with his hiatal hernia. Physical Exam Constitutional: WD/WN, vitals as above well developed, well nourished and + edematous; no acute distress Eyes: PERRL, conjunctivae normal, anicteric sclerae Neck: normal visual inspection and trachea midline Respiratory: normal respiratory effort, lungs clear to auscultation normal respiratory effort; no respiratory distress and no cough Auscultation: lungs clear to auscultation bilaterally and + diminished lung sounds (bilateral bases ); no crackles, no rales, no rhonchi and no wheezes Cardiovascular: Rate/Rhythm: regular rate and + irregularly irregular Heart Sounds: normal S1, normal S2 and + murmur Vessels: dorsalis pedis pulses present; no JVD Extremities: + edema (1+ bilateral lower extremity edema) Gastrointestinal (Abdomen): Inspection/Auscultation: + abdomen distended Musculoskeletal: no cyanosis or clubbing, extremities motor strength 5/5 Skin: no rashes, warm and dry Psychiatric: A+Ox3, euthymic affect Affect: + anxious affect Results & Data Vital Signs (Past 12 Hours) Vital Signs Temp Pulse Pulse Resp BP Pulse Ox O2 Del Method 12/07/23 07:57 36.4 C L 65 20 103/58 L 92 Room Air 12/07/23 03:44 36.6 C 67 18 109/65 94 Room Air 12/07/23 00:00 84 12/06/23 22:22 36.3 C L 85 18 108/70 96 Room Air Laboratory Results Coagulation 12/07/23 Range/Units 06:35 PT 26.1 H (9.0-12.0) Seconds CBC 12/07/23 Range/Units 06:35 WBC 11.16 H (4.8-10.8) K/ul RBC 6.00 (4.70-6.10) M/uL Hgb 17.5 (14.0-18.0) g/dl Hct 52.0 (42.0-52.0) % Plt Count 177 (130-400) K/uL Comprehensive Metabolic Panel 12/07/23 Range/Units 06:35 Sodium 141 (136-145) mmol/L Potassium 3.5 (3.5-5.1) mmol/L Chloride 94 L (98-107) mmol/L Carbon Dioxide 31 (21-32) mmol/L BUN 79 H (6-23) mg/dl Creatinine 2.45 H (0.6-1.4) mg/dl Glucose 129 H (70-99(Fasting)) mg/dl Calcium 10.3 (8.6-10.3) mg/dl Intake and Output 12/06/23 12/07/23 12/07/23 22:59 06:59 14:59 Intake Total 150 / 1190 200 / 1190 Output Total 1425 / 4525 1500 / 4525 Balance -1275 / -3335 -1300 / -3335 Intake: IV 100 / 200 Furosemide 100 mg In 0.9 % 100 / 200 Sodium Chloride 90 ml @ 10 MG/ HR 10 mls/hr IV .Q10H [facility] Rx#: [id number] Oral 150 / 990 100 / 990 Output: Urine 1425 / 4525 1500 / 4525 Other: Weight 103.4 kg Weight Measurement Method Standing Scale
--- NOTE | 2023-12-07 14:29 | Nephrology Progress Note ---
Date of Service December 07, 2023 Assessment & Plan (1) MARTIN (acute kidney injury): Plan: MARTIN on CKD w/ unknown baseline 2/2 Decompensated heart failure Vs progression of CKD. - on 12/02 started lasix gtt and daily metolazone - His renal function may decline w. diuresis, but we have to accept this. His baseline cr may prove to be higher. - Keep k > 4 and mg > 2 - At the moment he is responding to the diuretics,dialysis discussion is not indicated. - Daily I/O, daily STANDING weight preferably on the same scale all to continue - Avoid any WILLIE/arb at the moment. (2) Acute decompensated heart failure: Plan: standing wt 111.8 on 11/29 and 111.7 on 12/03 and 111.5 on 12/04; unacceptably slow diuresis > 105.6 on 12/05 w/ more intense diuretics; 103.4 kg today -continue lasix gtt 10 mg hourly -continue zaroxolyn 2.5 mg w/ increased frequency bid 17 -continue K 60 mEQ qid and will give extra 40 mEq po dose today x 1 (3) Atrial fibrillation: Plan: heightens renal risk; cardiology following and considering EP intervention/review Admission and Anticipated Discharge Date Admission Date: November 29, 2023 Subjective edema continues to improve, though still noticeable on his bilateral ankles and feet. Patient is sleeping better. tells me he has slept in a recliner for years ; plans to switch care to [facility] providers after discharge for Nephrology Cardiology primary care Review of Systems 2 Review of Systems: All systems reviewed & are unremarkable except as noted in Subjective Physical Exam 2 Constitutional: well developed (sitting in recliner as previously) and well nourished Eyes: EOM intact bilaterally ENMT: Ears: no external ear abnormality Nose: no external nose abnormality Mouth: + dry oral mucous membranes Neck: no nuchal rigidity Respiratory: able to speak in complete sentences; no respiratory distress, no labored breathing and no cough Auscultation: + breath sounds absent (BL bases) and + diminished lung sounds Cardiovascular: Rate/Rhythm: + irregularly irregular Extremities: + edema (1+ bLE pedal) Gastrointestinal (Abdomen): Inspection/Auscultation: normal bowel sounds P ercussion/Palpation: abdomen soft; abdomen nontender Musculoskeletal: Extremities: strength 5/5 throughout Skin: no rashes, warm and dry Psychiatric: Orientation: alert and oriented x 3 Results & Data Vital Signs (Past 12 Hours) Vital Signs Temp Pulse Pulse Resp BP Pulse Ox O2 Del Method 12/07/23 11:33 36.4 C L 92 H 18 94/66 L 94 Room Air 12/07/23 11:06 91 H 12/07/23 08:00 Room Air 12/07/23 07:57 36.4 C L 65 20 103/58 L 92 Room Air 12/07/23 03:44 36.6 C 67 18 109/65 94 Room Air Laboratory Results 12/07/23 06:35 12/07/23 06:35
[2023-12-07] MEDS: POTASSIUM CHLORIDE CRTAB 20 MEQ TABCR PO ONE (15:16)
--- NOTE | 2023-12-07 16:20 | Hospitalist Progress Note ---
Date of Service December 07, 2023 Assessment & Plan (1) Acute decompensated heart failure: Plan: Acute decompensated systolic heart failure with biventricular ICD placement status Complicated by valvular heart disease Nonischemic cardiomyopathy Severe mitral regurgitation --CXR:Cardiomegaly with pulmonary vascular congestion Small right and trace left pleural effusions. --ECHO: EF 20 to 25%. Diffuse hypokinesis to akinesis. Severe biatrial enlargement. Severe mitral regurgitation. Mild tricuspid regurgitation. Continue IV Lasix drip Also on metolazone 2.5 mg twice daily Monitor volume status Appreciate cardiology, nephrology input Continue fluid restriction Also on metoprolol Monitor volume status closely Continue current management Diuresing slowly Replace electrolytes as needed Mild Troponin elevation Likely demand ischemia, in setting of renal impairment Doubt any ACS (2) Bilateral edema of lower extremity: Plan: Management as above (3) Pulmonary edema: Plan: Management as above (4) S/P implantation of automatic cardioverter/defibrillator (AICD): Plan: Known systolic heart failure and has a biventricular ICD placed Echo as above NSVTs, PVCs Continue beta-juanito Also started on amiodarone Monitor and replace electrolytes as needed (5) MARTIN (acute kidney injury): Plan: 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 Unknown baseline Expected rise in creatinine given IV diuretics Avoid nephrotoxic agents as able Monitor urine output Appreciate nephrology input Monitor renal function Cr 2.45 today (6) H/O valvular heart disease: (7) Atrial fibrillation: Plan: Continue amiodarone, metoprolol Continue Coumadin Monitor INR 2.6 today Adjust Coumadin dose as needed (8) HTN (hypertension): Plan: stable Continue current meds (9) BPH (benign prostatic hyperplasia): Plan: Continue Proscar, tamsulosin Plan DVT Px: Coumadin CODE STATUS Full code Admission and Anticipated Discharge Date Admission Date: November 29, 2023 Subjective Patient is seen and examined at bedside Leg edema continues to improve Denies any significant shortness of breath today Discussed with cardiology today Remains on IV Lasix drip Denies any chest pain, nausea, vomiting, abdominal pain Review of Systems Review of Systems: All systems reviewed & are unremarkable except as noted in Subjective Physical Exam Physical Exam: Physical Exam: Vitals signs as noted above General Appearance:Moderately built and nourished, no apparent distress Head: normocephalic, Atraumatic Eyes: normal inspection, EOMI Neck: supple, Trachea midline Respiratory/Chest: Decreased breath sounds, CTA, No accessory muscle use Cardiovascular: Irregularly irregular, + murmur Abdomen/GI:Soft, Non tender, Bowel sounds present Extremities/Musculoskeletal:normal inspection, + B/L LE edema Neurologic/Psych:AAOX3, grossly no focal neurological deficits Skin: normal color, warm Results & Data Results & Data Vital Signs (Past 12 Hours) Vital Signs Temp Pulse Pulse Resp BP Pulse Ox O2 Del Method 12/07/23 15:26 35.9 C L 71 20 103/68 95 Room Air 12/07/23 11:33 36.4 C L 92 H 18 94/66 L 94 Room Air 12/07/23 11:06 91 H 12/07/23 08:00 Room Air 12/07/23 07:57 36.4 C L 65 20 103/58 L 92 Room Air Laboratory Results Short CBC 12/07/23 Range/Units 06:35 WBC 11.16 H (4.8-10.8) K/ul Hgb 17.5 (14.0-18.0) g/dl Hct 52.0 (42.0-52.0) % Plt Count 177 (130-400) K/uL BMP 12/07/23 06:35 Sodium 141 Potassium 3.5 Chloride 94 L Carbon Dioxide 31 BUN 79 H Creatinine 2.45 H Glucose 129 H Calcium 10.3
[2023-12-08 07:14] LABS: BUN Creatinine Ratio 34.2 (10-20); Calcium 10.3 mg/dl (8.6-10.3); Creatinine Clr Calc Pharmacy 28.7 ml/min; Est GFR (African American) 26.9 ml/min; Est GFR (Non-African American) 23.3 ml/min; Potassium 3.9 mmol/L (3.5-5.1)
[2023-12-08 07:26] LABS: INR 2.7 (0.9-1.1)
--- NOTE | 2023-12-08 11:47 | Nephrology Progress Note ---
Date of Service December 08, 2023 Assessment & Plan (1) MARTIN (acute kidney injury): Plan: MARTIN on CKD w/ unknown baseline 2/2 Decompensated heart failure Vs progression of CKD. - on 12/02 started lasix gtt and daily metolazone - His renal function may decline w. diuresis, but we have to accept this. His baseline cr may prove to be higher. - Keep k > 4 and mg > 2 - At the moment he is responding to the diuretics,dialysis discussion is not indicated. - Daily I/O, daily STANDING weight preferably on the same scale all to continue - Avoid any WILLIE/arb at the moment. (2) Acute decompensated heart failure: Plan: standing wt 111.8 on 11/29 and 111.7 on 12/03 and 111.5 on 12/04; unacceptably slow diuresis > 105.6 on 12/05 w/ more intense diuretics; 103.4 kg today -continue lasix gtt 10 mg hourly -continue zaroxolyn 2.5 mg w/ increased frequency bid 17 -continue K 60 mEQ qid and will give extra 40 mEq po dose today x 1 (3) Atrial fibrillation: Plan: heightens renal risk; cardiology following and considering EP intervention/review Admission and Anticipated Discharge Date Admission Date: November 29, 2023 Subjective Patient is seen and examined at bedside Leg edema continues to improve Denies any chest pain, nausea, vomiting, abdominal pain Review of Systems 2 Review of Systems: All systems reviewed & are unremarkable except as noted in HPI & below Physical Exam 2 Physical Exam: General - SOb on exertion Respiratory- clear to auscultation Abdomen - Soft , non distended. CVS- + irregularly irregular Heart Sounds: normal S1 and normal S2 Vessels: no JVD Extremities:2 + edema bilaterally Results & Data Vital Signs (Past 12 Hours) Vital Signs Temp Pulse Pulse Resp BP Pulse Ox O2 Del Method 12/08/23 08:14 36.3 C L 84 18 113/78 92 Room Air 12/08/23 03:31 36.4 C L 83 18 116/78 93 Room Air 12/08/23 00:00 89 Laboratory Results 12/07/23 06:35 12/08/23 06:17
[2023-12-08] MEDS: HYDROCORTISONE 1% CRM 30 GM TUBE EXT SCH (12:41)
--- NOTE | 2023-12-08 15:43 | Hospitalist Progress Note ---
Date of Service December 08, 2023 Assessment & Plan (1) Acute decompensated heart failure: Plan: Acute decompensated systolic heart failure with biventricular ICD placement status Complicated by valvular heart disease Nonischemic cardiomyopathy Severe mitral regurgitation --CXR:Cardiomegaly with pulmonary vascular congestion Small right and trace left pleural effusions. --ECHO: EF 20 to 25%. Diffuse hypokinesis to akinesis. Severe biatrial enlargement. Severe mitral regurgitation. Mild tricuspid regurgitation. Continue IV Lasix drip Also on metolazone 2.5 mg twice daily Monitor volume status Appreciate cardiology, nephrology input Continue fluid restriction Also on metoprolol Monitor volume status closely Replace electrolytes as needed Continue current medications Clinically improving Mild Troponin elevation Likely demand ischemia, in setting of renal impairment Doubt any ACS (2) Bilateral edema of lower extremity: Plan: Management as above (3) Pulmonary edema: Plan: Management as above (4) S/P implantation of automatic cardioverter/defibrillator (AICD): Plan: Known systolic heart failure and has a biventricular ICD placed Echo as above NSVTs, PVCs Continue beta-juanito Also started on amiodarone Monitor and replace electrolytes as needed Erythematous rash on hands ? 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 Unknown baseline Expected rise in creatinine given IV diuretics Avoid nephrotoxic agents as able Monitor urine output Appreciate nephrology input Monitor renal function Cr 2.5 today (6) H/O valvular heart disease: (7) Atrial fibrillation: Plan: Continue amiodarone, metoprolol Continue Coumadin Monitor INR 2.7 today Adjust Coumadin dose as needed (8) HTN (hypertension): Plan: stable Continue current meds (9) BPH (benign prostatic hyperplasia): Plan: Continue Proscar, tamsulosin Plan DVT Px: Coumadin CODE STATUS Full code Admission and Anticipated Discharge Date Admission Date: November 29, 2023 Subjective Patient is seen and examined at bedside Leg edema, dyspnea on exertion improving States having erythematous petechial rash on dorsal side of hands on IV Lasix drip Denies any chest pain, nausea, vomiting, abdominal pain No other complaints Review of Systems Review of Systems: All systems reviewed & are unremarkable except as noted in Subjective Physical Exam Physical Exam: Physical Exam: Vitals signs as noted above General Appearance:Moderately built and nourished, no apparent distress Head: normocephalic, Atraumatic Eyes: normal inspection, EOMI Neck: supple, Trachea midline Respiratory/Chest: Decreased breath sounds, CTA, No accessory muscle use Cardiovascular: Irregularly irregular, + murmur Abdomen/GI:Soft, Non tender, Bowel sounds present Extremities/Musculoskeletal:normal inspection, + B/L LE edema Neurologic/Psych:AAOX3, grossly no focal neurological deficits Skin: normal color, warm Results & Data Results & Data Vital Signs (Past 12 Hours) Vital Signs Temp Pulse Resp BP Pulse Ox O2 Del Method 12/08/23 11:56 36.3 C L 89 22 121/70 92 Room Air 12/08/23 08:14 36.3 C L 84 18 113/78 92 Room Air Laboratory Results [facility] 12/08/23 06:17 Sodium 142 Potassium 3.9 Chloride 98 Carbon Dioxide 33 H BUN 88 H Creatinine 2.57 H Glucose 153 H Calcium 10.3
--- NOTE | 2023-12-08 16:07 | Cardiology Progress Note ---
Date of Service December 08, 2023 Assessment & Plan (1) Acute decompensated heart failure: (2) H/O valvular heart disease: (3) Atrial fibrillation: (4) Bilateral edema of lower extremity: (5) S/P implantation of automatic cardioverter/defibrillator (AICD): Plan 1. Nonischemic cardiomyopathy -EF 25%; s/p BIV ICD 2. Acute on chronic systolic and diastolic CHF 3. Permanent atrial fibrillation Per outside records 4. Severe MR 5. BERNARDINO -noncompliant with CPAP 6. HTN 7. HLD 8. Acute on chronic kidney disease? -Records received, echocardiogram performed in 2022 revealed ejection fraction of 35-40% which was noted to be a little bit better than the previous, ejection fraction now down to the range of 20- 25%, with severe mitral regurgitation is likely due to the underlying cardiomyopathy. Patient has history of biventricular pacemaker AICD, Dennis device, placed in 2014, generator longevity down to 4 months. Question if patient is receiving much in the way of therapeutic pacing from the device, with basal pacing rate set at 55 bpm. Continue metoprolol, and amiodarone, and will consider adjusting device settings, with the knowledge that this may cause his battery to become depleted more quickly, but patient is prepared to have generator change when it is indicated as he has been aware that his general activity has been watched closely recently. * Continue metoprolol succinate 25 mg twice daily * amiodarone 200 mg twice daily for rate control, PVCs/NSVT suppression. * INR 2.7 on 12/08/2023, dose of warfarin previously adjusted to 2 mg daily given amiodarone treatment * Slow but steady progress with aggressive diuresis, continue furosemide infusion, 10 mg/h, metolazone 2.5 mg twice daily, potassium chloride 60 mill equivalents p.o. 4 times daily. As outpatient was previously on bumetanide 2 mg by mouth daily on Monday, Monday, , Monday, alternating with 1 mg the remaining days of the week. At discharge, would consider at least 2 mg of Bumex standing on a daily basis, and metolazone at least once per week. Admission and Anticipated Discharge Date Admission Date: November 29, 2023 Subjective Patient seen cardiology follow-up. Feeling slow but steady progressive improvement. Remains on furosemide infusion. Telemetry reveals rate controlled atrial fibrillation in the 70s with frequent PVCs and ventricular couplets, no recent prolonged episodes of nonsustained ventricular tachycardia today. Physical Exam Constitutional: WD/WN, vitals as above well developed, well nourished and + edematous; no acute distress Eyes: PERRL, conjunctivae normal, anicteric sclerae Neck: normal visual inspection and trachea midline Respiratory: normal respiratory effort, lungs clear to auscultation normal respiratory effort; no respiratory distress and no cough Auscultation: lungs clear to auscultation bilaterally and + diminished lung sounds (bilateral bases ); no crackles, no rales, no rhonchi and no wheezes Cardiovascular: Rate/Rhythm: regular rate and + irregularly irregular Heart Sounds: normal S1, normal S2 and + murmur Vessels: dorsalis pedis pulses present; no JVD Extremities: + edema (1+ bilateral lower extremity edema) Gastrointestinal (Abdomen): Inspection/Auscultation: + abdomen distended Musculoskeletal: no cyanosis or clubbing, extremities motor strength 5/5 Skin: no rashes, warm and dry Psychiatric: A+Ox3, euthymic affect Affect: + anxious affect Results & Data Vital Signs (Past 12 Hours) Vital Signs Temp Pulse Resp BP Pulse Ox O2 Del Method 12/08/23 11:56 36.3 C L 89 22 121/70 92 Room Air 12/08/23 08:14 36.3 C L 84 18 113/78 92 Room Air Laboratory Results Coagulation 12/08/23 Range/Units 06:17 PT 27.0 H (9.0-12.0) Seconds Comprehensive Metabolic Panel 12/08/23 Range/Units 06:17 Sodium 142 (136-145) mmol/L Potassium 3.9 (3.5-5.1) mmol/L Chloride 98 (98-107) mmol/L Carbon Dioxide 33 H (21-32) mmol/L BUN 88 H (6-23) mg/dl Creatinine 2.57 H (0.6-1.4) mg/dl Glucose 153 H (70-99(Fasting)) mg/dl Calcium 10.3 (8.6-10.3) mg/dl Intake and Output 12/08/23 12/08/23 12/08/23 06:59 14:59 22:59 Intake Total 100 / 1261.5 1075.667 / 1075.667 Output Total 1100 / 4226 786 / 786 Balance -1000 / -2964.5 289.667 / 289.667 Intake: IV 95.667 / 95.667 Furosemide 100 mg In 0.9 % 95.667 / 95.667 Sodium Chloride 90 ml @ 10 MG/ HR 10 mls/hr IV .Q10H [facility] Rx#: [id number] Oral 100 / 1075 980 / 980 Output: Urine 1100 / 4225 785 / 785 # Bowel Movements Other: Weight 101.7 kg Weight Measurement Method Standing Scale
[2023-12-08] MEDS: WARFARIN SOD 1 MG TAB PO SCH (16:21)
[2023-12-08 21:43] LABS: BUN Creatinine Ratio 32.6 (10-20); Calcium 10.2 mg/dl (8.6-10.3); Creatinine Clr Calc Pharmacy 26.5 ml/min; Est GFR (African American) 24.4 ml/min; Est GFR (Non-African American) 21.1 ml/min; Magnesium 2.1 mg/dl (1.7-2.4); Phosphorus 3.6 mg/dl (2.5-4.9); Potassium 4.5 mmol/L (3.5-5.1)
[2023-12-08 21:47] LABS: Basophils # (auto) 0.03 K/uL (0.00-0.20); Basophils % (auto) 0.3 %; Eosinophils # (auto) 0.14 K/uL (0.00-0.50); Eosinophils % (auto) 1.2 %; Hematocrit (blood only) 52.2 % (42.0-52.0); Hemoglobin 17.4 g/dl (14.0-18.0); Immature Granulocytes # (auto) 0.04 K/uL (0.01-0.20); Immature Granulocytes % (auto) 0.3 %; Lymphocytes # (auto) 1.21 K/uL (1.20-3.40); Lymphocytes % (auto) 10.2 %; Mean Corpuscular Hgb Conc 33.3 g/dL (32.0-36.0); Mean Platelet Volume 11.3 fL (9.4-12.4); Monocytes # (auto) 1.09 K/uL (0.11-0.59); Monocytes % (auto) 9.2 %; Neutrophils # (auto) 9.37 K/uL (1.40-6.50); Neutrophils % (auto) 78.8 %; Nucleated RBC # (auto) 0.03 K/uL (0.00-0.12); Nucleated RBC % (auto) 0.3 %; Platelet Count 167 K/uL (130-400); RDW Coefficient of Variation 17.2 % (11.5-14.5); White Blood Count 11.88 K/ul (4.8-10.8)
[2023-12-09 06:47] LABS: Hematocrit (blood only) 53.1 % (42.0-52.0); Hemoglobin 17.6 g/dl (14.0-18.0); Mean Corpuscular Hgb Conc 33.1 g/dL (32.0-36.0); Mean Corpuscular Volume 87.6 fL (80.0-100.0); Mean Platelet Volume 11.1 fL (9.4-12.4); Platelet Count 178 K/uL (130-400); RDW Coefficient of Variation 17.3 % (11.5-14.5); RDW Standard Deviation 47.8 fL (36.4-46.3); Red Blood Count 6.06 M/uL (4.70-6.10); White Blood Count 10.59 K/ul (4.8-10.8)
[2023-12-09 07:16] LABS: Calcium 10.3 mg/dl (8.6-10.3); Creatinine Clr Calc Pharmacy 28.2 ml/min; Est GFR (African American) 26.6 ml/min; Est GFR (Non-African American) 22.9 ml/min; Magnesium 2.1 mg/dl (1.7-2.4); Potassium 4.2 mmol/L (3.5-5.1)
[2023-12-09 07:24] LABS: INR 3.1 (0.9-1.1); Prothrombin Time 30.8 Seconds (9.0-12.0)
[2023-12-09 07:27] LABS: Troponin I High Sensitivity 131.9 pg/ml (0-20)
[2023-12-09] MEDS ORDERED: METOPROLOL TARTRATE 1 MG/ML VIAL IV PRN (07:33)
--- NOTE | 2023-12-09 09:46 | Cardiology Progress Note ---
Date of Service December 09, 2023 Assessment & Plan (1) Acute decompensated heart failure: (2) H/O valvular heart disease: (3) Atrial fibrillation: (4) Bilateral edema of lower extremity: (5) S/P implantation of automatic cardioverter/defibrillator (AICD): Plan 1. Nonischemic cardiomyopathy -EF 25%; s/p BIV ICD 2. Acute on chronic systolic and diastolic CHF 3. Permanent atrial fibrillation Per outside records 4. Severe MR 5. BERNARDINO -noncompliant with CPAP 6. HTN 7. HLD 8. Acute on chronic kidney disease? -Records received, echocardiogram performed in 2022 revealed ejection fraction of 35-40% which was noted to be a little bit better than the previous, ejection fraction now down to the range of 20- 25%, with severe mitral regurgitation is likely due to the underlying cardiomyopathy. Patient has history of biventricular pacemaker AICD, Dennis device, placed in 2014, generator longevity down to 4 months. Question if patient is receiving much in the way of therapeutic pacing from the device, with basal pacing rate set at 55 bpm. Continue metoprolol, and amiodarone, and will consider adjusting device settings, with the knowledge that this may cause his battery to become depleted more quickly, but patient is prepared to have generator change when it is indicated as he has been aware that his general activity has been watched closely recently. As outpatient was previously on bumetanide 2 mg by mouth daily on Monday, Monday, , Monday, alternating with 1 mg the remaining days of the week. At discharge, would consider at least 2 mg of Bumex standing on a daily basis, and metolazone at least once per week. 12/09/2023 * amiodarone 200 mg twice daily for rate control, PVCs/NSVT suppression. * Continue metoprolol 25 mg twice daily. * INR 2.7 on 12/08/2023, dose of warfarin previously adjusted to 2 mg daily given amiodarone treatment * Discontinue metolazone . * Continue furosemide infusion, 10 mg/h, potassium chloride 60 mill equivalents p.o. 4 times daily * Consider transition to oral Bumex 2 mg daily in the next 24-48 hours Admission and Anticipated Discharge Date Admission Date: November 29, 2023 Subjective 77-year-old male seen and examined at the bedside. Fluid balance -2500 cc. Serum creatinine trending downward. Tolerating IV Lasix infusion and metolazone 2.5 mg twice daily. Edema markedly improved since admission. Denies chest pain or shortness of breath. Telemetry was atrial fibrillation in the 70-80s. Review of Systems Review of Systems: All systems reviewed & are unremarkable except as noted in Subjective Physical Exam Constitutional: well nourished; no acute distress Respiratory: normal respiratory effort; no respiratory distress, no labored breathing and no retractions Auscultation: + diminished lung sounds; no crackles, no rales, no rhonchi and no wheezes Cardiovascular: Rate/Rhythm: + irregularly irregular Heart Sounds: normal S1, normal S2 and + murmur (1/6 systolic ejection murmur heard best at the right second intercostal spa) Vessels: + JVD and radial pulses present Extremities: + edema (Mild bilateral ankle edema) Gastrointestinal (Abdomen): Inspection/Auscultation: normal bowel sounds; abdomen not distended Percussion/Palpation: abdomen soft; abdomen nontender, no guarding and abdomen not rigid Neurologic: CN's II-XI intact bilaterally and moves all extremities; no focal motor deficits Results & Data Vital Signs (Past 12 Hours) Vital Signs Temp Pulse Pulse Resp BP BP Pulse Ox 12/09/23 07:34 36.3 C L 82 20 116/81 92 12/09/23 03:01 36.4 C L 85 18 112/75 96 12/08/23 23:13 36.5 C 82 18 106/70 94 12/08/23 21:53 88 O2 Del Method 12/09/23 07:34 Room Air 12/09/23 03:01 Room Air 12/08/23 23:13 Room Air 12/08/23 21:53 Laboratory Results Cardiac Enzymes 12/08/23 12/09/23 Range/Units 21:08 06:09 Troponin I High Sens 123.0 H* 131.9 H* (0-20) pg/ml Coagulation 12/09/23 Range/Units 06:09 PT 30.8 H (9.0-12.0) Seconds CBC 12/08/23 12/09/23 Range/Units 21:08 06:09 WBC 11.88 H 10.59 (4.8-10.8) K/ul RBC 6.00 6.06 (4.70-6.10) M/uL Hgb 17.4 17.6 (14.0-18.0) g/dl Hct 52.2 H 53.1 H (42.0-52.0) % Plt Count 167 178 (130-400) K/uL Neut # (Auto) 9.37 H (1.40-6.50) K/uL Lymph # (Auto) 1.21 (1.20-3.40) K/uL [place] # (Auto) 1.09 H (0.11-0.59) K/uL Eos # (Auto) 0.14 (0.00-0.50) K/uL Baso # (Auto) 0.03 (0.00-0.20) K/uL Comprehensive Metabolic Panel 12/08/23 12/09/23 Range/Units 21:08 06:09 Sodium 141 144 (136-145) mmol/L Potassium 4.5 4.2 (3.5-5.1) mmol/L Chloride 99 98 (98-107) mmol/L Carbon Dioxide 30 33 H (21-32) mmol/L BUN 91 H 91 H (6-23) mg/dl Creatinine 2.79 H 2.60 H (0.6-1.4) mg/dl Glucose 98 123 H (70-99(Fasting)) mg/dl Calcium 10.2 10.3 (8.6-10.3) mg/dl Intake and Output 12/08/23 12/09/23 12/09/23 22:59 06:59 14:59 Intake Total 148.333 / 1412.167 188.167 / 1412.167 Output Total 1500 / 3286 1000 / 3286 551 / 551 Balance -1351.667 / -1873.833 -811.833 / -1873.833 -551 / -551 Intake: IV 98.333 / 282.167 88.167 / 282.167 Furosemide 100 mg In 0.9 % 98.333 / 282.167 88.167 / 282.167 Sodium Chloride 90 ml @ 10 MG/ HR 10 mls/hr IV .Q10H [facility] Rx#: [id number] Oral 50 / 1130 100 / 1130 Output: Urine 1500 / 3285 1000 / 3285 550 / 550 # Bowel Movements 1 / 1 Other: Other Intake Source CHIPS Weight 100.1 kg Weight Measurement Method Standing Scale
--- NOTE | 2023-12-09 10:33 | Nephrology Progress Note ---
Date of Service December 09, 2023 Assessment & Plan (1) MARTIN (acute kidney injury): Plan: MARTIN on CKD w/ unknown baseline 2/2 Decompensated heart failure Vs progression of CKD. - on 12/02 started lasix gtt and daily metolazone -Continue diuresis, goal to transition to oral diuretics tomorrow or Monday. Will defer to Dr. Hilton - Keep k > 4 and mg > 2 (2) Acute decompensated heart failure: Plan: standing wt 111.8 on 11/29 and 111.7 on 12/03 and 111.5 on 12/04; unacceptably slow diuresis > 105.6 on 12/05 w/ more intense diuretics; -continue lasix gtt 10 mg hourly -continue zaroxolyn 2.5 mg w/ increased frequency bid 17 -We can change to Bumex 2 mg daily and metolazone 2.5 mg daily starting tomorrow (3) Atrial fibrillation: Plan: heightens renal risk; cardiology following and considering EP intervention Admission and Anticipated Discharge Date Admission Date: November 29, 2023 Subjective Seen in follow-up for CKD and CHF. Breathing is better. No leg swelling. He was net -2.5 L. Creatinine downtrending to 2.6 today. Review of Systems 2 Review of Systems: All other systems were reviewed and negative except as noted in HPI Physical Exam 2 Physical Exam: General exam: Appears comfortable, no acute distress HEENT: Pupils are equal and reactive to light Neck: No JVD, neck is supple trachea is midline Respiratory system: Clear breath sounds bilaterally. Gastrointestinal: Abdomen is soft, non distended, non tender, bowel sounds are present CVS: Regular rate and rhythm. No murmurs, rubs or gallops Musculoskeletal: No joint or muscle tenderness Extremities: Non tender, no edema, peripheral pulses are present Neuro: Oriented, no tremors, no focal neurological deficits Skin: No rashes Results & Data Vital Signs (Past 12 Hours) Vital Signs Temp Pulse Resp BP BP Pulse Ox O2 Del Method 12/09/23 07:34 36.3 C L 82 20 116/81 92 Room Air 12/09/23 03:01 36.4 C L 85 18 112/75 96 Room Air 12/08/23 23:13 36.5 C 82 18 106/70 94 Room Air Laboratory Results 12/09/23 06:09 12/08/23 12/09/23 21:08 06:09 WBC 11.88 H 10.59 RBC 6.00 6.06 MCV 87.0 87.6 MCH 29.0 29.0 MCHC 33.3 33.1 RDW Std Deviation 47.0 H 47.8 H RDW Coeff of Sandra 17.2 H 17.3 H Plt Count 167 178 MPV 11.3 11.1 Phosphorus 3.6
--- NOTE | 2023-12-09 15:23 | Hospitalist Progress Note ---
Date of Service December 09, 2023 Assessment & Plan (1) Acute decompensated heart failure: Plan: Acute decompensated systolic heart failure with biventricular ICD placement status Complicated by valvular heart disease Nonischemic cardiomyopathy Severe mitral regurgitation --CXR:Cardiomegaly with pulmonary vascular congestion Small right and trace left pleural effusions. --ECHO: EF 20 to 25%. Diffuse hypokinesis to akinesis. Severe biatrial enlargement. Severe mitral regurgitation. Mild tricuspid regurgitation. Continue IV Lasix drip Monitor volume status Appreciate cardiology, nephrology input Continue fluid restriction Also on metoprolol Monitor volume status closely Replace electrolytes as needed Metaxalone held for now Volume status much improved Mild Troponin elevation Likely demand ischemia, in setting of renal impairment Doubt any ACS (2) Bilateral edema of lower extremity: Plan: Management as above (3) Pulmonary edema: Plan: Management as above (4) S/P implantation of automatic cardioverter/defibrillator (AICD): Plan: Known systolic heart failure and has a biventricular ICD placed Echo as above NSVTs, PVCs Continue beta-juanito Also started on amiodarone Monitor and replace electrolytes as needed Erythematous rash on hands ? 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 Unknown baseline Expected rise in creatinine given IV diuretics Avoid nephrotoxic agents as able Monitor urine output Appreciate nephrology input Monitor renal function Cr 2.6 today (6) H/O valvular heart disease: (7) Atrial fibrillation: Plan: Continue amiodarone, metoprolol Continue Coumadin Monitor INR 3.1 today Adjust Coumadin dose as needed (8) HTN (hypertension): Plan: stable Continue current meds (9) BPH (benign prostatic hyperplasia): Plan: Continue Proscar, tamsulosin Plan DVT Px: Coumadin CODE STATUS Full code Admission and Anticipated Discharge Date Admission Date: November 29, 2023 Subjective Patient is seen and examined at bedside No new complaints Dyspnea on exertion resolved Leg edema much improved Discussed with nephrology today Denies any chest pain, nausea, vomiting, abdominal pain Review of Systems Review of Systems: All systems reviewed & are unremarkable except as noted in Subjective Physical Exam Physical Exam: Physical Exam: Vitals signs as noted above General Appearance:Moderately built and nourished, no apparent distress Head: normocephalic, Atraumatic Eyes: normal inspection, EOMI Neck: supple, Trachea midline Respiratory/Chest: Decreased breath sounds, CTA, No accessory muscle use Cardiovascular: Irregularly irregular, + murmur Abdomen/GI:Soft, Non tender, Bowel sounds present Extremities/Musculoskeletal:normal inspection, + B/L LE edema Neurologic/Psych:AAOX3, grossly no focal neurological deficits Skin: normal color, warm Results & Data Results & Data Vital Signs (Past 12 Hours) Vital Signs Temp Pulse Pulse Resp BP Pulse Ox O2 Del Method 12/09/23 14:05 85 12/09/23 11:08 36.5 C 78 20 100/66 91 Room Air 12/09/23 07:34 36.3 C L 82 20 116/81 92 Room Air Laboratory Results Short CBC 12/08/23 12/09/23 Range/Units 21:08 06:09 WBC 11.88 H 10.59 (4.8-10.8) K/ul Hgb 17.4 17.6 (14.0-18.0) g/dl Hct 52.2 H 53.1 H (42.0-52.0) % Plt Count 167 178 (130-400) K/uL [facility] 12/08/23 12/09/23 21:08 06:09 Sodium 141 144 Potassium 4.5 4.2 Chloride 99 98 Carbon Dioxide 30 33 H BUN 91 H 91 H Creatinine 2.79 H 2.60 H Glucose 98 123 H Calcium 10.2 10.3
[2023-12-09] MEDS ORDERED: WARFARIN SOD 2 MG TAB PO SCH (16:00)
[2023-12-09] MEDS: WARFARIN SOD 1 MG TAB PO SCH (17:42)
[2023-12-10 07:10] LABS: BUN Creatinine Ratio 34.2 (10-20); Calcium 10.4 mg/dl (8.6-10.3); Creatinine Clr Calc Pharmacy 26.4 ml/min; Est GFR (African American) 24.5 ml/min; Est GFR (Non-African American) 21.1 ml/min; Potassium 4.7 mmol/L (3.5-5.1)
[2023-12-10 07:47] LABS: Prothrombin Time 29.8 Seconds (9.0-12.0)
--- NOTE | 2023-12-10 10:53 | Nephrology Progress Note ---
Date of Service December 10, 2023 Assessment & Plan (1) MARTIN (acute kidney injury): Plan: MARTIN on CKD w/ unknown baseline 2/2 Decompensated heart failure Vs progression of CKD. - on 12/02 started lasix gtt and daily metolazone -Patient has continued to diurese well and was net -1 L yesterday. Will hold Lasix drip and metolazone today. Will start Bumex 2 mg daily tomorrow discussed with Dr. Hilton - Keep k > 4 and mg > 2 (2) Acute decompensated heart failure: Plan: standing wt 111.8 on 11/29 and 111.7 on 12/03 and 111.5 on 12/04; unacceptably slow diuresis > 105.6 on 12/05 w/ more intense diuretics; -changed to Bumex 2 mg daily starting tomorrow -Continue to monitor input output and daily standing weight (3) Atrial fibrillation: Plan: heightens renal risk; cardiology following and considering EP intervention Admission and Anticipated Discharge Date Admission Date: November 29, 2023 Subjective Seen for CKD and CHF. He feels better today. No shortness of breath. He diuresed well and was net -1 L yesterday. Blood pressure is low this morning. Review of Systems 2 Review of Systems: All other systems were reviewed and negative except as noted in HPI Physical Exam 2 Physical Exam: General exam: Appears comfortable, no acute distress HEENT: Pupils are equal and reactive to light Neck: No JVD, neck is supple trachea is midline Respiratory system: Clear breath sounds bilaterally. Gastrointestinal: Abdomen is soft, non distended, non tender, bowel sounds are present CVS: Regular rate and rhythm. No murmurs, rubs or gallops Musculoskeletal: No joint or muscle tenderness Extremities: Non tender, no edema, peripheral pulses are present Neuro: Oriented, no tremors, no focal neurological deficits Skin: No rashes Results & Data Vital Signs (Past 12 Hours) Vital Signs Temp Pulse Resp BP Pulse Ox O2 Del Method 12/10/23 07:24 36.3 C L 64 20 91/63 L 95 Room Air 12/10/23 03:07 36.5 C 56 L 18 135/64 94 Room Air 12/10/23 00:16 36.4 C L 63 18 102/66 92 Room Air Laboratory Results 12/10/23 06:08
--- NOTE | 2023-12-10 11:23 | Cardiology Progress Note ---
Date of Service December 10, 2023 Assessment & Plan (1) Acute decompensated heart failure: (2) H/O valvular heart disease: (3) Atrial fibrillation: (4) Bilateral edema of lower extremity: (5) S/P implantation of automatic cardioverter/defibrillator (AICD): Plan 1. Nonischemic cardiomyopathy -EF 25%; s/p BIV ICD 2. Acute on chronic systolic and diastolic CHF 3. Permanent atrial fibrillation Per outside records 4. Severe MR 5. BERNARDINO -noncompliant with CPAP 6. HTN 7. HLD 8. Acute on chronic kidney disease? -Records received, echocardiogram performed in 2022 revealed ejection fraction of 35-40% which was noted to be a little bit better than the previous, ejection fraction now down to the range of 20- 25%, with severe mitral regurgitation is likely due to the underlying cardiomyopathy. Patient has history of biventricular pacemaker AICD, Dennis device, placed in 2014, generator longevity down to 4 months. Question if patient is receiving much in the way of therapeutic pacing from the device, with basal pacing rate set at 55 bpm. Continue metoprolol, and amiodarone, and will consider adjusting device settings, with the knowledge that this may cause his battery to become depleted more quickly, but patient is prepared to have generator change when it is indicated as he has been aware that his general activity has been watched closely recently. As outpatient was previously on bumetanide 2 mg by mouth daily on Monday, Monday, , Monday, alternating with 1 mg the remaining days of the week. At discharge, would consider at least 2 mg of Bumex standing on a daily basis, and metolazone at least once per week. 12/09/2023 * amiodarone 200 mg twice daily for rate control, PVCs/NSVT suppression. * Continue metoprolol 25 mg twice daily. * INR 2.7 on 12/08/2023, dose of warfarin previously adjusted to 2 mg daily given amiodarone treatment * Discontinue metolazone . * Continue furosemide infusion, 10 mg/h, potassium chloride 60 mill equivalents p.o. 4 times daily * Consider transition to oral Bumex 2 mg daily in the next 24-48 hours 12/10/2023 * Discontinue IV furosemide infusion. * Discontinue high-dose potassium supplementation, (KCL 60meq QID) * Reduce potassium supplementation to 40 mEq daily * Start oral Bumex, 2 mg daily in a.m. 12/11/2023 * Continue metoprolol 25 mg twice daily. * amiodarone 200 mg twice daily for rate control, PVCs/NSVT suppression. * INR 3.0 today, dose of warfarin previously adjusted to 2 mg daily given amiodarone treatment Admission and Anticipated Discharge Date Admission Date: November 29, 2023 Subjective 77-year-old male seen and examined the bedside. Additional 1.5 L diuresis. Renal function remains stable with creatinine of 2.78 today. Telemetry demonstrates atrial fibrillation 70-80 bpm with occasional ventricular pacing and 1 run of nonsustained ventricular tachycardia overnight. Patient denies orthopnea or PND. Continues to sleep in a chair. Edema has significantly improved. Blood pressure trending downward this morning. Weight is down 28 pounds since admission. Review of Systems Review of Systems: All systems reviewed & are unremarkable except as noted in Subjective Physical Exam Constitutional: well nourished; no acute distress Respiratory: normal respiratory effort; no respiratory distress, no labored breathing and no retractions Auscultation: + diminished lung sounds; no crackles, no rales, no rhonchi and no wheezes Cardiovascular: Rate/Rhythm: + irregularly irregular Heart Sounds: normal S1, normal S2 and + murmur (1/6 systolic ejection murmur heard best at the right second intercostal spa) Vessels: + JVD and radial pulses present Extremities: + edema (trace bilateral ankle edema) Gastrointestinal (Abdomen): Inspection/Auscultation: normal bowel sounds; abdomen not distended Percussion/Palpation: abdomen soft; abdomen nontender, no guarding and abdomen not rigid Neurologic: CN's II-XI intact bilaterally and moves all extremities; no focal motor deficits Results & Data Vital Signs (Past 12 Hours) Vital Signs Temp Pulse Pulse Resp BP Pulse Ox O2 Del Method 12/10/23 08:00 97 H 12/10/23 07:24 36.3 C L 64 20 91/63 L 95 Room Air 12/10/23 03:07 36.5 C 56 L 18 135/64 94 Room Air 12/10/23 00:16 36.4 C L 63 18 102/66 92 Room Air Laboratory Results Coagulation 12/10/23 Range/Units 06:08 PT 29.8 H (9.0-12.0) Seconds Comprehensive Metabolic Panel 12/10/23 Range/Units 06:08 Sodium 141 (136-145) mmol/L Potassium 4.7 (3.5-5.1) mmol/L Chloride 96 L (98-107) mmol/L Carbon Dioxide 31 (21-32) mmol/L BUN 95 H (6-23) mg/dl Creatinine 2.78 H (0.6-1.4) mg/dl Glucose 133 H (70-99(Fasting)) mg/dl Calcium 10.4 H (8.6-10.3) mg/dl Intake and Output 12/09/23 12/10/23 12/10/23 22:59 06:59 14:59 Intake Total 390 / 2090 750 / 2090 100 / 100 Output Total 1190 / 3642 1300 / 3642 400 / 400 Balance -800 / -1552 -550 / -1552 -300 / -300 Intake: IV 100 / 200 100 / 100 Furosemide 100 mg In 0.9 % 100 / 200 100 / 100 Sodium Chloride 90 ml @ 10 MG/ HR 10 mls/hr IV .Q10H [facility] Rx#: [id number] Oral 390 / 1890 650 / 1890 Output: Urine 1190 / 3640 1300 / 3640 400 / 400 Other: Weight 100 kg Weight Measurement Method Standing Scale
--- NOTE | 2023-12-10 13:23 | Hospitalist Progress Note ---
Date of Service December 10, 2023 Assessment & Plan (1) Acute decompensated heart failure: Plan: Acute decompensated systolic heart failure with biventricular ICD placement status Complicated by valvular heart disease Nonischemic cardiomyopathy Severe mitral regurgitation --CXR:Cardiomegaly with pulmonary vascular congestion Small right and trace left pleural effusions. --ECHO: EF 20 to 25%. Diffuse hypokinesis to akinesis. Severe biatrial enlargement. Severe mitral regurgitation. Mild tricuspid regurgitation. Monitor volume status Appreciate cardiology, nephrology input IV Lasix infusion discontinued Continue fluid restriction Also on metoprolol Replace electrolytes as needed Diuresed well Plan to start on Bumex 2 mg daily tomorrow Mild Troponin elevation Likely demand ischemia, in setting of renal impairment Doubt any ACS (2) Bilateral edema of lower extremity: Plan: Management as above (3) Pulmonary edema: Plan: Management as above (4) S/P implantation of automatic cardioverter/defibrillator (AICD): Plan: Known systolic heart failure and has a biventricular ICD placed Echo as above NSVTs, PVCs Continue beta-juanito Also started on amiodarone Monitor and replace electrolytes as needed Erythematous rash on hands ? 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 Unknown baseline Expected rise in creatinine given IV diuretics Avoid nephrotoxic agents as able Monitor urine output Appreciate nephrology input Cr 2.78 today Continue to monitor renal function (6) H/O valvular heart disease: (7) Atrial fibrillation: Plan: Continue amiodarone, metoprolol Continue Coumadin Monitor INR 3.0 today Adjust Coumadin dose as needed (8) HTN (hypertension): Plan: stable Continue current meds (9) BPH (benign prostatic hyperplasia): Plan: Continue Proscar, tamsulosin Plan DVT Px: Coumadin CODE STATUS Full code Admission and Anticipated Discharge Date Admission Date: November 29, 2023 Subjective Patient is seen and examined at bedside Feels better today No new complaints Blood pressure low today Creatinine slowly rising Denies any chest pain, dyspnea, nausea, vomiting, abdominal pain Leg edema much improved IV Lasix drip discontinued Review of Systems Review of Systems: All systems reviewed & are unremarkable except as noted in Subjective Physical Exam Physical Exam: Physical Exam: Vitals signs as noted above General Appearance:Moderately built and nourished, no apparent distress Head: normocephalic, Atraumatic Eyes: normal inspection, EOMI Neck: supple, Trachea midline Respiratory/Chest: Decreased breath sounds, CTA, No accessory muscle use Cardiovascular: Irregularly irregular, + murmur Abdomen/GI:Soft, Non tender, Bowel sounds present Extremities/Musculoskeletal:normal inspection, + B/L LE edema Neurologic/Psych:AAOX3, grossly no focal neurological deficits Skin: normal color, warm Results & Data Results & Data Vital Signs (Past 12 Hours) Vital Signs Temp Pulse Pulse Resp BP Pulse Ox O2 Del Method 12/10/23 11:35 36.3 C L 79 18 106/72 97 Room Air 12/10/23 08:00 97 H 12/10/23 07:24 36.3 C L 64 20 91/63 L 95 Room Air 12/10/23 03:07 36.5 C 56 L 18 135/64 94 Room Air Laboratory Results [facility] 12/10/23 06:08 Sodium 141 Potassium 4.7 Chloride 96 L Carbon Dioxide 31 BUN 95 H Creatinine 2.78 H Glucose 133 H Calcium 10.4 H
[2023-12-11 07:22] LABS: Prothrombin Time 29.4 Seconds (9.0-12.0)
[2023-12-11] MEDS: BUMETANIDE 1 MG TAB PO SCH (08:19)
[2023-12-11] MEDS: POTASSIUM CHLORIDE CRTAB 20 MEQ TABCR PO SCH (08:19)
[2023-12-11 10:51] LABS: Potassium 4.3 mmol/L (3.5-5.1)
[2023-12-11 10:57] LABS: BUN Creatinine Ratio 31.5 (10-20); Creatinine Clr Calc Pharmacy 23.1 ml/min; Est GFR (African American) 20.9 ml/min
--- NOTE | 2023-12-11 12:09 | Nephrology Progress Note ---
Date of Service December 11, 2023 Assessment & Plan (1) MARTIN (acute kidney injury): Plan: MARTIN on CKD w/ unknown baseline; worse renal function today markedly 2/2 Decompensated heart failure Vs progression of CKD and now s/p over a week of aggressive diuresis. - on 12/02 started lasix gtt and daily metolazone ; held 12/09; today started bumex 2 mg daily; metolazone on hold; on standing K 40 mEq daily - Keep k > 4 and mg > 2 >cont bumex, hold metolazone, monitor bmp > may worsen before it stabilizes (2) Acute decompensated heart failure: Plan: standing wt 111.8 on 11/29 and 111.7 on 12/03 and 111.5 on 12/04; unacceptably slow diuresis > 105.6 on 12/05 w/ more intense diuretics; 100.3 on 12/10 so down 26.7 lb from 12/04 -cont Bumex 2 mg daily po -Continue to monitor input output and daily standing weight (3) Atrial fibrillation: Plan: heightens renal risk; cardiology following and considering EP intervention afte rd/c Admission and Anticipated Discharge Date Admission Date: November 29, 2023 Subjective no interval events. gained some wt today versus yesterday off gtt but still feels quite well reltaivley. no chest pain, sob ok. edema controlled Review of Systems 2 Review of Systems: All systems reviewed & are unremarkable except as noted in Subjective Physical Exam 2 Constitutional: well developed (sitting in recliner as previously) and well nourished Eyes: EOM intact bilaterally ENMT: Ears: no external ear abnormality Nose: no external nose abnormality Mouth: + dry oral mucous membranes Neck: no nuchal rigidity Respiratory: able to speak in complete sentences and + abnormal respiratory pattern; no respiratory distress, no labored breathing and no cough A uscultation: + breath sounds absent (BL bases) and + diminished lung sounds Cardiovascular: Rate/Rhythm: + irregularly irregular Extremities: + edema (at most trace bLE pedal) Gastrointestinal (Abdomen): Inspection/Auscultation: normal bowel sounds P ercussion/Palpation: abdomen soft; abdomen nontender Musculoskeletal: Extremities: strength 5/5 throughout Skin: no rashes, warm and dry Psychiatric: Orientation: alert and oriented x 3 Results & Data Vital Signs (Past 12 Hours) Vital Signs Temp Pulse Pulse Resp BP Pulse Ox O2 Del Method 12/11/23 10:33 36.5 C 63 19 108/74 95 Room Air 12/11/23 08:00 67 12/11/23 07:26 36.5 C 58 L 16 98/67 L 98 Room Air 12/11/23 02:22 36.5 C 65 19 119/67 97 Room Air Laboratory Results 12/09/23 06:09 12/11/23 06:23
--- NOTE | 2023-12-11 13:24 | Cardiology Progress Note ---
Date of Service December 11, 2023 Assessment & Plan (1) Acute decompensated heart failure: (2) H/O valvular heart disease: (3) Atrial fibrillation: (4) Bilateral edema of lower extremity: (5) S/P implantation of automatic cardioverter/defibrillator (AICD): Plan 1. Nonischemic cardiomyopathy -EF 25%; s/p BIV ICD 2. Acute on chronic systolic and diastolic CHF 3. Permanent atrial fibrillation Per outside records 4. Severe MR 5. BERNARDINO -noncompliant with CPAP 6. HTN 7. HLD 8. Acute on chronic kidney disease? -Records received, echocardiogram performed in 2022 revealed ejection fraction of 35-40% which was noted to be a little bit better than the previous, ejection fraction now down to the range of 20- 25%, with severe mitral regurgitation is likely due to the underlying cardiomyopathy. Patient has history of biventricular pacemaker AICD, Dennis device, placed in 2 015, generator longevity down to 4 months. Question if patient is receiving much in the way of therapeutic pacing from the device, with basal pacing rate set at 55 bpm. Continue metoprolol, and amiodarone, and will consider adjusting device settings, with the knowledge that this may cause his battery to become depleted more quickly, but patient is prepared to have generator change when it is indicated as he has been aware that his general activity has been watched closely recently. As outpatient was previously on bumetanide 2 mg by mouth daily on Monday, Monday, , Monday, alternating with 1 mg the remaining days of the week. At discharge, would consider at least 2 mg of Bumex standing on a daily basis, and metolazone at least once per week. 12/09/2023 * amiodarone 200 mg twice daily for rate control, PVCs/NSVT suppression. * Continue metoprolol 25 mg twice daily. * INR 2.7 on 12/08/2023, dose of warfarin previously adjusted to 2 mg daily given amiodarone treatment * Discontinue metolazone . * Continue furosemide infusion, 10 mg/h, potassium chloride 60 mill equivalents p.o. 4 times daily * Consider transition to oral Bumex 2 mg daily in the next 24-48 hours 12/10/2023 * Discontinue IV furosemide infusion. * Discontinue high-dose potassium supplementation, (KCL 60meq QID) * Reduce potassium supplementation to 40 mEq daily * Start oral Bumex, 2 mg daily in a.m. 12/11/2023 * Continue metoprolol 25 mg twice daily. * amiodarone 200 mg twice daily for rate control, PVCs/NSVT suppression. * INR 3.0 today, dose of warfarin previously adjusted to 2 mg daily given amiodarone treatment 12/11/2023 * Continue oral Bumex, 2 mg daily * Hold metolazone * Monitor fluid balance, daily, GFR, and electrolytes. * Continue metoprolol 25 mg twice daily. * amiodarone 200 mg twice daily for rate control, PVCs/NSVT suppression. * INR 3.0 today, dose of warfarin previously adjusted to 2 mg daily given amiodarone treatment Admission and Anticipated Discharge Date Admission Date: November 29, 2023 Subjective 77-year-old male seen and examined at the bedside. Creatinine trending normal today. Denies chest pain or shortness of breath. Rate controlled atrial fibrillation on telemetry with occasional short runs of nonsustained ventricular tachycardia. Intravenous Lasix infusion discontinued yesterday 12/10/2023. Review of Systems Review of Systems: All systems reviewed & are unremarkable except as noted in Subjective Physical Exam Constitutional: well nourished; no acute distress Respiratory: normal respiratory effort; no respiratory distress, no labored breathing and no retractions Auscultation: + diminished lung sounds; no crackles, no rales, no rhonchi and no wheezes Cardiovascular: Rate/Rhythm: + irregularly irregular Heart Sounds: normal S1, normal S2 and + murmur (1/6 systolic ejection murmur heard best at the right second intercostal spa) Vessels: radial pulses present; no JVD Extremities: + edema (trace bilateral ankle edema) Gastrointestinal (Abdomen): Inspection/Auscultation: normal bowel sounds; abdomen not distended Percussion/Palpation: abdomen soft; abdomen nontender, no guarding and abdomen not rigid Neurologic: CN's II-XI intact bilaterally and moves all extremities; no focal motor deficits Results & Data Vital Signs (Past 12 Hours) Vital Signs Temp Pulse Pulse Resp BP Pulse Ox O2 Del Method 12/11/23 10:33 36.5 C 63 19 108/74 95 Room Air 12/11/23 08:00 67 12/11/23 07:26 36.5 C 58 L 16 98/67 L 98 Room Air 12/11/23 02:22 36.5 C 65 19 119/67 97 Room Air Diagnostic Findings Coagulation 12/11/23 Range/Units 06:23 PT 29.4 H (9.0-12.0) Seconds Comprehensive Metabolic Panel 12/11/23 Range/Units 06:23 Sodium 139 (136-145) mmol/L Potassium 4.3 (3.5-5.1) mmol/L Chloride 94 L (98-107) mmol/L Carbon Dioxide 32 (21-32) mmol/L BUN 100 H (6-23) mg/dl Creatinine 3.17 H D (0.6-1.4) mg/dl Glucose 121 H (70-99(Fasting)) mg/dl Calcium 10.0 (8.6-10.3) mg/dl Intake and Output 12/10/23 12/11/23 12/11/23 22:59 06:59 14:59 Intake Total 350 / 1030 100 / 1030 Output Total 600 / 1436 250 / 1436 Balance -250 / -406 -150 / -406 Intake: Oral 350 / 930 100 / 930 Output: Urine 600 / 1435 250 / 1435 Other: Weight 100.3 kg Weight Measurement Method Standing Scale (3) Atrial fibrillation Atrial fibrillation type: permanent Qualified Code(s): I48.21 - Permanent atrial fibrillation
--- NOTE | 2023-12-11 14:45 | Hospitalist Progress Note ---
Date of Service December 11, 2023 Assessment & Plan (1) Acute decompensated heart failure: Plan: Acute decompensated systolic heart failure with biventricular ICD placement status Complicated by valvular heart disease Nonischemic cardiomyopathy Severe mitral regurgitation --CXR:Cardiomegaly with pulmonary vascular congestion Small right and trace left pleural effusions. --ECHO: EF 20 to 25%. Diffuse hypokinesis to akinesis. Severe biatrial enlargement. Severe mitral regurgitation. Mild tricuspid regurgitation. Monitor volume status Appreciate cardiology, nephrology input IV Lasix infusion discontinued Continue fluid restriction Also on metoprolol Replace electrolytes as needed Diuresed well Continue Bumex 2 mg daily Creatinine worsened today Monitor renal function closely Mild Troponin elevation Likely demand ischemia, in setting of renal impairment Doubt any ACS (2) Bilateral edema of lower extremity: Plan: Management as above (3) Pulmonary edema: Plan: Management as above (4) S/P implantation of automatic cardioverter/defibrillator (AICD): Plan: Known systolic heart failure and has a biventricular ICD placed Echo as above NSVTs, PVCs Continue beta-juanito Also started on amiodarone 200 mg twice daily Monitor and replace electrolytes as needed Erythematous rash on hands ? 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 Unknown baseline Expected rise in creatinine given IV diuretics Avoid nephrotoxic agents as able Appreciate nephrology input Cr 3.17 today Monitor renal function closely (6) H/O valvular heart disease: (7) Atrial fibrillation: Plan: Continue amiodarone, metoprolol Continue Coumadin Monitor INR 3.0 today Adjust Coumadin dose as needed (8) HTN (hypertension): Plan: stable Continue current meds (9) BPH (benign prostatic hyperplasia): Plan: Continue Proscar, tamsulosin Plan DVT Px: Coumadin CODE STATUS Full code Admission and Anticipated Discharge Date Admission Date: November 29, 2023 Subjective Patient is seen and examined at bedside Renal function worsened today Patient subjectively feels about the same as yesterday Offers no new complaints Continues to have NSVT's overnight--asymptomatic Denies any chest pain, dyspnea, nausea, vomiting, abdominal pain Review of Systems Review of Systems: All systems reviewed & are unremarkable except as noted in Subjective Physical Exam Physical Exam: Physical Exam: Vitals signs as noted above General Appearance:Moderately built and nourished, no apparent distress Head: normocephalic, Atraumatic Eyes: normal inspection, EOMI Neck: supple, Trachea midline Respiratory/Chest: Decreased breath sounds, CTA, No accessory muscle use Cardiovascular: Irregularly irregular, + murmur Abdomen/GI:Soft, Non tender, Bowel sounds present Extremities/Musculoskeletal:normal inspection, + B/L LE edema Neurologic/Psych:AAOX3, grossly no focal neurological deficits Skin: normal color, warm Results & Data Results & Data Vital Signs (Past 12 Hours) Vital Signs Temp Pulse Pulse Resp BP Pulse Ox O2 Del Method 12/11/23 10:33 36.5 C 63 19 108/74 95 Room Air 12/11/23 08:00 67 12/11/23 07:26 36.5 C 58 L 16 98/67 L 98 Room Air Laboratory Results [facility] 12/11/23 06:23 Sodium 139 Potassium 4.3 Chloride 94 L Carbon Dioxide 32 BUN 100 H Creatinine 3.17 H D Glucose 121 H Calcium 10.0 (7) Atrial fibrillation Atrial fibrillation type: permanent Qualified Code(s): I48.21 - Permanent atrial fibrillation
[2023-12-11] MEDS: ACETAMINOPHEN 325 MG TAB PO PRN (23:42)
[2023-12-12 06:28] LABS: Hematocrit (blood only) 48.5 % (42.0-52.0); Hemoglobin 16.1 g/dl (14.0-18.0); Mean Corpuscular Hgb Conc 33.2 g/dL (32.0-36.0); Mean Corpuscular Volume 87.2 fL (80.0-100.0); Mean Platelet Volume 11.3 fL (9.4-12.4); Platelet Count 154 K/uL (130-400); RDW Coefficient of Variation 15.4 % (11.5-14.5); RDW Standard Deviation 47.4 fL (36.4-46.3); Red Blood Count 5.56 M/uL (4.70-6.10); White Blood Count 8.68 K/ul (4.8-10.8)
[2023-12-12 06:48] LABS: Calcium 9.1 mg/dl (8.6-10.3); Magnesium 1.9 mg/dl (1.7-2.4); Potassium 4.2 mmol/L (3.5-5.1)
[2023-12-12 06:53] LABS: Creatinine Clr Calc Pharmacy 26.1 ml/min; Est GFR (African American) 24.1 ml/min; Est GFR (Non-African American) 20.8 ml/min
[2023-12-12 06:56] LABS: Prothrombin Time 29.2 Seconds (9.0-12.0)
--- NOTE | 2023-12-12 07:51 | Nephrology Progress Note ---
Date of Service December 12, 2023 Assessment & Plan (1) MARTIN (acute kidney injury): Plan: MARTIN on CKD w/ unknown baseline but presume mid 2's or CKD 4; worse renal function from yesterday resolved now and creat back to high 2's, may be his new baseline 2/2 Decompensated heart failure Vs progression of CKD and now s/p over a week of aggressive diuresis. - on 12/02 started lasix gtt and daily metolazone ; held 12/09; 12/10 started bumex 2 mg daily; metolazone on hold; on standing K 40 mEq daily - Keep k > 4 and mg > 2 >cont bumex, hold metolazone, monitor bmp Will sign off NEPHRO D/C RECS -d/c on bumex 2 mg daily and KCl 40 mEq daily >Diuretic titration protocol: take 2.5 mg metolazone daily x 3 days for wt gain >3 lb in 24 hrs or >5lb within one week -bmp at PCP f/u visit w/in a week of d/c -hospital d/c visit w/ nephro about 2 wks after hospital d/c w/ any physician [place] or [facility] w/ BMP, mag, PTH, 25OHD, hgb, phos, UACM, ACR to be ordered by neph nurse and drawn no more than 3 days before visit -1.5L FR and <2 gm daily sodium diet >> PLS PROVIDE TEACHING ON THIS TO PT AND HIS -daily standing weights >> needs to log them and bring to PCP, neph, cardio f/u visits Care coordinated w/ Dr Ernie anders d/c dispo, meds, f/u labs and diet/weight protocols; we are in agreement. (2) Acute decompensated heart failure: Plan: standing wt 111.8 on 11/29 and 111.7 on 12/03 and 111.5 on 12/04; unacceptably slow diuresis > 105.6 on 12/05 w/ more intense diuretics; 100.3 on 12/10 so down 26.7 lb from 12/04 -cont Bumex 2 mg daily po -Continue to monitor input output and daily standing weight (3) CKD (chronic kidney disease) stage 4, GFR 15-29 ml/min: Plan: imperative given CKd severity and active cardiac issues that he have neph f/u >> see d/c recs (4) Atrial fibrillation: Plan: heightens renal risk; cardiology following and considering EP intervention afte rd/c Admission and Anticipated Discharge Date Admission Date: November 29, 2023 Subjective no interval events. wt relatively stable. no n/v, sob stable; edema remains minimal bernadette L foot. Review of Systems 2 Review of Systems: All systems reviewed & are unremarkable except as noted in Subjective Physical Exam 2 Constitutional: well developed (sitting in recliner as previously) and well nourished Eyes: EOM intact bilaterally ENMT: Ears: no external ear abnormality Nose: no external nose abnormality Mouth: + dry oral mucous membranes Neck: no nuchal rigidity Respiratory: able to speak in complete sentences; no respiratory distress, no labored breathing and no cough Auscultation: + diminished lung sounds Cardiovascular: Rate/Rhythm: + irregularly irregular Extremities: + edema (at most trace bLE pedal) Gastrointestinal (Abdomen): Inspection/Auscultation: normal bowel sounds P ercussion/Palpation: abdomen soft; abdomen nontender Musculoskeletal: Extremities: strength 5/5 throughout Skin: no rashes, warm and dry Psychiatric: Orientation: alert and oriented x 3 Results & Data Vital Signs (Past 12 Hours) Vital Signs Temp Pulse Pulse Resp BP Pulse Ox O2 Del Method 12/12/23 07:21 36.4 C L 62 18 115/66 98 Room Air 12/12/23 06:59 75 12/12/23 03:04 36.3 C L 73 18 95/67 L 94 Room Air 12/12/23 01:01 81 12/11/23 23:35 36.3 C L 61 18 128/63 94 Room Air 12/11/23 20:57 94/56 L Laboratory Results 12/12/23 05:43 12/12/23 05:43 (4) Atrial fibrillation Atrial fibrillation type: permanent Qualified Code(s): I48.21 - Permanent atrial fibrillation
--- NOTE | 2023-12-12 13:03 | Hospitalist Progress Note ---
Date of Service December 12, 2023 Assessment & Plan (1) Acute decompensated heart failure: Plan: Acute decompensated systolic heart failure with biventricular ICD placement status Complicated by valvular heart disease Nonischemic cardiomyopathy Severe mitral regurgitation --CXR:Cardiomegaly with pulmonary vascular congestion Small right and trace left pleural effusions. --ECHO: EF 20 to 25%. Diffuse hypokinesis to akinesis. Severe biatrial enlargement. Severe mitral regurgitation. Mild tricuspid regurgitation. Monitor volume status Appreciate cardiology, nephrology input IV Lasix infusion discontinued Continue fluid restriction Also on metoprolol Replace electrolytes as needed Diuresed well Continue Bumex 2 mg daily Renal function better today Plan to be discharged home today Mild Troponin elevation Likely demand ischemia, in setting of renal impairment Doubt any ACS (2) Bilateral edema of lower extremity: Plan: Management as above (3) Pulmonary edema: Plan: Management as above (4) S/P implantation of automatic cardioverter/defibrillator (AICD): Plan: Known systolic heart failure and has a biventricular ICD placed Echo as above NSVTs, PVCs Continue beta-juanito Also started on amiodarone 200 mg twice daily Monitor and replace electrolytes as needed Erythematous rash on hands ? 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 Unknown baseline Expected rise in creatinine given IV diuretics Avoid nephrotoxic agents as able Appreciate nephrology input Cr 2.82 today Monitor renal function closely Needs follow-up with nephrology on discharge (6) H/O valvular heart disease: (7) Atrial fibrillation: Plan: Continue amiodarone, metoprolol Continue Coumadin Monitor INR 3.0 today Adjust Coumadin dose as needed (8) HTN (hypertension): Plan: stable Continue current meds (9) BPH (benign prostatic hyperplasia): Plan: Continue Proscar, tamsulosin Plan DVT Px: Coumadin CODE STATUS Full code Disposition Home with home Admission and Anticipated Discharge Date Admission Date: November 29, 2023 Subjective Patient is seen and examined at bedside No new complaints Discussed with cardiology, nephrology today Denies any chest pain, dyspnea, nausea, vomiting, abdominal pain Plan to be discharged home today Review of Systems Review of Systems: All systems reviewed & are unremarkable except as noted in Subjective Physical Exam Physical Exam: Physical Exam: Vitals signs as noted above General Appearance:Moderately built and nourished, no apparent distress Head: normocephalic, Atraumatic Eyes: normal inspection, EOMI Neck: supple, Trachea midline Respiratory/Chest: Decreased breath sounds, CTA, No accessory muscle use Cardiovascular: Irregularly irregular, + murmur Abdomen/GI:Soft, Non tender, Bowel sounds present Extremities/Musculoskeletal:normal inspection, + B/L LE edema Neurologic/Psych:AAOX3, grossly no focal neurological deficits Skin: normal color, warm Results & Data Results & Data Vital Signs (Past 12 Hours) Vital Signs Temp Pulse Pulse Resp BP BP Pulse Ox 12/12/23 11:35 36.4 C L 100 H 17 114/68 92/67 L 97 12/12/23 07:21 36.4 C L 62 18 115/66 98 12/12/23 06:59 75 12/12/23 03:04 36.3 C L 73 18 95/67 L 94 12/12/23 01:01 81 O2 Del Method 12/12/23 11:35 Room Air 12/12/23 07:21 Room Air 12/12/23 06:59 12/12/23 03:04 Room Air 12/12/23 01:01 Laboratory Results Short CBC 12/12/23 Range/Units 05:43 WBC 8.68 (4.8-10.8) K/ul Hgb 16.1 (14.0-18.0) g/dl Hct 48.5 (42.0-52.0) % Plt Count 154 (130-400) K/uL BMP 12/12/23 05:43 Sodium 137 Potassium 4.2 Chloride 93 L Carbon Dioxide 36 H BUN 96 H Creatinine 2.82 H D Glucose 107 H Calcium 9.1 (7) Atrial fibrillation Atrial fibrillation type: permanent Qualified Code(s): I48.21 - Permanent atrial fibrillation
--- NOTE | 2023-12-12 13:11 | Cardiology Progress Note ---
Date of Service December 12, 2023 Assessment & Plan (1) Acute decompensated heart failure: (2) H/O valvular heart disease: (3) Atrial fibrillation: (4) Bilateral edema of lower extremity: (5) S/P implantation of automatic cardioverter/defibrillator (AICD): Plan 1. Nonischemic cardiomyopathy -EF 25%; s/p BIV ICD 2. Acute on chronic systolic and diastolic CHF 3. Permanent atrial fibrillation Per outside records 4. Severe MR 5. BERNARDINO -noncompliant with CPAP 6. HTN 7. HLD 8. Acute on chronic kidney disease? -Records received, echocardiogram performed in 2022 revealed ejection fraction of 35-40% which was noted to be a little bit better than the previous, ejection fraction now down to the range of 20- 25%, with severe mitral regurgitation is likely due to the underlying cardiomyopathy. Patient has history of biventricular pacemaker AICD, Dennis device, placed in 2 015, generator longevity down to 4 months. Question if patient is receiving much in the way of therapeutic pacing from the device, with basal pacing rate set at 55 bpm. Continue metoprolol, and amiodarone, and will consider adjusting device settings, with the knowledge that this may cause his battery to become depleted more quickly, but patient is prepared to have generator change when it is indicated as he has been aware that his general activity has been watched closely recently. As outpatient was previously on bumetanide 2 mg by mouth daily on Monday, Monday, , Monday, alternating with 1 mg the remaining days of the week. At discharge, would consider at least 2 mg of Bumex standing on a daily basis, and metolazone at least once per week. 12/09/2023 * amiodarone 200 mg twice daily for rate control, PVCs/NSVT suppression. * Continue metoprolol 25 mg twice daily. * INR 2.7 on 12/08/2023, dose of warfarin previously adjusted to 2 mg daily given amiodarone treatment * Discontinue metolazone . * Continue furosemide infusion, 10 mg/h, potassium chloride 60 mill equivalents p.o. 4 times daily * Consider transition to oral Bumex 2 mg daily in the next 24-48 hours 12/10/2023 * Discontinue IV furosemide infusion. * Discontinue high-dose potassium supplementation, (KCL 60meq QID) * Reduce potassium supplementation to 40 mEq daily * Start oral Bumex, 2 mg daily in a.m. 12/11/2023 * Continue metoprolol 25 mg twice daily. * amiodarone 200 mg twice daily for rate control, PVCs/NSVT suppression. * INR 3.0 today, dose of warfarin previously adjusted to 2 mg daily given amiodarone treatment 12/11/2023 * Continue oral Bumex, 2 mg daily * Hold metolazone * Monitor fluid balance, daily, GFR, and electrolytes. * Continue metoprolol 25 mg twice daily. * amiodarone 200 mg twice daily for rate control, PVCs/NSVT suppression. * INR 3.0 today, dose of warfarin previously adjusted to 2 mg daily given amiodarone treatment 12/12/2023: * Continue oral Bumex, 2 mg daily * Metolazone prn weight gain as per Nepro recommendations. * <1.5 L fluid restriction, 2gm Na diet * Continue metoprolol 25 mg twice daily. * amiodarone 200 mg twice daily for rate control, PVCs/NSVT suppression. * INR 3.0 today, dose of warfarin previously adjusted to 2 mg daily given amiodarone treatment * Refer patient to [facility] anticoagulation clinic for outpatient management. * Refer patient to [facility] heart rhythm device clinic as outpatient * Close cardiology follow-up, CHF clinic, in 1 week Admission and Anticipated Discharge Date Admission Date: November 29, 2023 Subjective Patient seen examined the bedside. Creatinine trending downward. Anxious for discharge. Fluid balance -2.8 L. Telemetry reveals rate controlled atrial fibrillation. 5 beat run of nonsustained VT. Review of Systems Review of Systems: All systems reviewed & are unremarkable except as noted in Subjective Physical Exam Constitutional: well nourished; no acute distress Respiratory: normal respiratory effort; no respiratory distress, no labored breathing and no retractions Auscultation: + diminished lung sounds; no crackles, no rales, no rhonchi and no wheezes Cardiovascular: Rate/Rhythm: + irregularly irregular Heart Sounds: normal S1, normal S2 and + murmur (1/6 systolic ejection murmur heard best at the right second intercostal spa) Vessels: radial pulses present; no JVD Extremities: + edema (trace bilateral ankle edema) Gastrointestinal (Abdomen): Inspection/Auscultation: normal bowel sounds; abdomen not distended Percussion/Palpation: abdomen soft; abdomen nontender, no guarding and abdomen not rigid Neurologic: CN's II-XI intact bilaterally and moves all extremities; no focal motor deficits Results & Data Vital Signs (Past 12 Hours) Vital Signs Temp Pulse Pulse Resp BP BP Pulse Ox 12/12/23 11:35 36.4 C L 100 H 17 114/68 92/67 L 97 12/12/23 07:21 36.4 C L 62 18 115/66 98 12/12/23 06:59 75 12/12/23 03:04 36.3 C L 73 18 95/67 L 94 O2 Del Method 12/12/23 11:35 Room Air 12/12/23 07:21 Room Air 12/12/23 06:59 12/12/23 03:04 Room Air Laboratory Results Coagulation 12/12/23 Range/Units 05:43 PT 29.2 H (9.0-12.0) Seconds CBC 12/12/23 Range/Units 05:43 WBC 8.68 (4.8-10.8) K/ul RBC 5.56 (4.70-6.10) M/uL Hgb 16.1 (14.0-18.0) g/dl Hct 48.5 (42.0-52.0) % Plt Count 154 (130-400) K/uL Comprehensive Metabolic Panel 12/12/23 Range/Units 05:43 Sodium 137 (136-145) mmol/L Potassium 4.2 (3.5-5.1) mmol/L Chloride 93 L (98-107) mmol/L Carbon Dioxide 36 H (21-32) mmol/L BUN 96 H (6-23) mg/dl Creatinine 2.82 H D (0.6-1.4) mg/dl Glucose 107 H (70-99(Fasting)) mg/dl Calcium 9.1 (8.6-10.3) mg/dl Intake and Output 12/11/23 12/12/23 12/12/23 22:59 06:59 14:59 Intake Total 50 / 920 390 / 920 Output Total 2850 / 3750 700 / 3750 Balance -2800 / -2830 -310 / -2830 Intake: Oral 50 / 920 390 / 920 Output: Urine 2850 / 3750 700 / 3750 Other: Weight 101.3 kg Weight Measurement Method Standing Scale (3) Atrial fibrillation Atrial fibrillation type: permanent Qualified Code(s): I48.21 - Permanent atrial fibrillation
--- NOTE | 2023-12-12 13:16 | Discharge Summary ---
Date of Service December 12, 2023 Admission HPI Per Admitting Provider This is a 77yo M with a PMH of atrial fibrillation on coumadin, history of valvular disease (unknown which valves), CHF, HTN, HLD, defibrillator/pacemaker placement, BPH, CKD III (Cr baseline unknown) presenting with worsening BLE swelling x 4 weeks. Follows with [facility] in [place] for primary care and Dr. Scott for cardiology (ANA Sen) for A fib and CHF. Thinks he is been on Bumex since hospitalization at [facility] this past March. Bumex was working well until the past few weeks when he started to have worsening swelling in lower legs as well as SOB. When he saw Dr. Scott 3 weeks ago, he increased Bumex from 1mg daily to 2mg TuThSaSu and 1mg MoWeFr. SOB improved but BLE edema has persisted and he is now having serous drainage and wounds on legs. + orthopnea, sleeping in recliner. No PND. Does not think his weight has changed much in the past month. No fever, chills, lightheadedness, headache, CP, palpitations, N/V, abd pain, dysuria, diarrhea or constipation. Does not require home O2. Has been diagnosed with BERNARDINO but does not use a CPAP mask. Follows with primary care with [facility] in [place] and Dr. Roque for nephrology in [place]. In ED, patient febrile with VSS. Cr 1.70, BNP 887, initial HS trop 92.4 with repeat pending. CXR with cardiomegaly with pulmonary vascular congestion. Small right and trace left pleural effusions. Mild right basilar consolidation. Given 2mg IV Bumex in ED. Admission Exam Per Admitting Provider General Appearance: WD/WN, vitals as above, NAD, sitting up in bed, pleasant, conversational dyspnea Head: normocephalic, atraumatic Eyes: normal inspection, PERRL, conjunctivae normal, anicteric sclerae ENT: external ear and nose normal, oropharynx normal Neck: normal visual inspection, trachea midline, no thyromegaly Respiratory: increased respiratory effort, bibasilar rales, no wheeze or rhonchi Cardiovascular: irregular rate and rhythm, normal peripheral pulses, 3+ BLE edema Chest: normal inspection of chest, + AICD L chest wall Abdomen/GI: normal bowel sounds, distended but soft, nontender, no hepatosplenomegaly Extremities/Musculoskeletal: no cyanosis or clubbing, extremities motor strength 5/5 Neurologic: PERRL, EOMI, accommodation nl, no face palsy, no dysarthria, CN's II-XI intact bilaterally and moves all extremities Psychiatric: A+Ox3, euthymic affect Skin: no rashes, normal color, warm/dry, + open wounds R lowe with serous drainage Principal Diagnosis Acute decompensated systolic heart failure 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 Severe mitral regurgitation Discharge Data Allergies Allergy/AdvReac Type Severity Reaction Status Date / Time cephalexin [From Keflex] Allergy Intermediate Hives Unverified 11/29/23 18:57 Sulfa (Sulfonamide Allergy Intermediate Hives Unverified 11/29/23 18:57 Antibiotics) celecoxib AdvReac Intermediate Diarrhea Unverified 11/29/23 18:57 lisinopril AdvReac Mild Cough Unverified 11/29/23 18:57 Consultations 11/29/23 20:01 ED Decision to Admit Stat 11/29/23 22:01 HIM [Consult Health Information Management] Routine 11/29/23 23:04 Consult Cardiology Routine 12/03/23 11:37 Consult Nephrology Routine Procedures Performed Laboratory Results WBC 8.68 K/ul (4.8-10.8) 12/12/23 05:43 RBC 5.56 M/uL (4.70-6.10) 12/12/23 05:43 Hgb 16.1 g/dl (14.0-18.0) 12/12/23 05:43 Hct 48.5 % (42.0-52.0) 12/12/23 05:43 MCV 87.2 fL (80.0-100.0) 12/12/23 05:43 MCH 29.0 pg (25.0-34.0) 12/12/23 05:43 MCHC 33.2 g/dL (32.0-36.0) 12/12/23 05:43 RDW Std Deviation 47.4 fL (36.4-46.3) H 12/12/23 05:43 RDW Coeff of Sandra 15.4 % (11.5-14.5) H 12/12/23 05:43 Plt Count 154 K/uL (130-400) 12/12/23 05:43 MPV 11.3 fL (9.4-12.4) 12/12/23 05:43 Immature Gran % (Auto) 0.3 % 12/08/23 21:08 Neut % (Auto) 78.8 % 12/08/23 21:08 Lymph % (Auto) 10.2 % 12/08/23 21:08 Reynolds % (Auto) 9.2 % 12/08/23 21:08 Eos % (Auto) 1.2 % 12/08/23 21:08 Baso % (Auto) 0.3 % 12/08/23 21:08 Neut # (Auto) 9.37 K/uL (1.40-6.50) H 12/08/23 21:08 Lymph # (Auto) 1.21 K/uL (1.20-3.40) 12/08/23 21:08 Reynolds # (Auto) 1.09 K/uL (0.11-0.59) H 12/08/23 21:08 Eos # (Auto) 0.14 K/uL (0.00-0.50) 12/08/23 21:08 Baso # (Auto) 0.03 K/uL (0.00-0.20) 12/08/23 21:08 Immature Gran # (Auto) 0.04 K/uL (0.01-0.20) 12/08/23 21:08 Absolute Nucleated RBC 0.03 K/uL (0.00-0.12) 12/08/23 21:08 Nucleated RBC % (auto) 0.3 % 12/08/23 21:08 PT 29.2 Seconds (9.0-12.0) H 12/12/23 05:43 INR 3.0 (0.9-1.1) H 12/12/23 05:43 APTT 33 Seconds (21-31) H 11/29/23 17:20 PTT Ratio 1.2 11/29/23 17:20 Sodium 137 mmol/L (136-145) 12/12/23 05:43 Potassium 4.2 mmol/L (3.5-5.1) 12/12/23 05:43 Chloride 93 mmol/L (98-107) L 12/12/23 05:43 Carbon Dioxide 36 mmol/L (21-32) H 12/12/23 05:43 Anion Gap 8 (3-11) 12/12/23 05:43 BUN 96 mg/dl (6-23) H 12/12/23 05:43 Creatinine 2.82 mg/dl (0.6-1.4) H D 12/12/23 05:43 Est Cr Clr Drug Dosing 26.1 ml/min 12/12/23 05:43 Est GFR ( Amer) 24.1 ml/min 12/12/23 05:43 Est GFR (Non-Af Amer) 20.8 ml/min 12/12/23 05:43 BUN/Creatinine Ratio 34.0 (10-20) H 12/12/23 05:43 Glucose 107 mg/dl (70-99(Fasting)) H 12/12/23 05:43 Estimat Average Glucose 134 mg/dl 11/29/23 17:20 Hemoglobin A1c 6.3 % (4.5-5.6) H 11/29/23 17:20 Calcium 9.1 mg/dl (8.6-10.3) 12/12/23 05:43 Phosphorus 3.6 mg/dl (2.5-4.9) 12/08/23 21:08 Magnesium 1.9 mg/dl (1.7-2.4) 12/12/23 05:43 Total Bilirubin 1.2 mg/dl (0.2-1.0) H 11/29/23 17:20 AST 33 U/L (13-39) 11/29/23 17:20 ALT 22 U/L (7-52) 11/29/23 17:20 Alkaline Phosphatase 55 U/L (34-104) 11/29/23 17:20 Troponin I High Sens 131.9 pg/ml (0-20) H* 12/09/23 06:09 B-Natriuretic Peptide 887 pg/ml (0-100) H 11/29/23 17:20 Total Protein 6.6 gm/dl (6.0-8.3) 11/29/23 17:20 Albumin 3.9 gm/dl (3.4-5.0) 11/29/23 17:20 Globulin 2.7 gm/dl (2.5-4.0) 11/29/23 17:20 Albumin/Globulin Ratio 1.4 (0.9-2) 11/29/23 17:20 TSH 2.654 uIu/ml (0.300-4.500) 11/29/23 19:55 Urine Color Yellow 11/30/23 Unknown Urine Appearance Clear (Clear) 11/30/23 Unknown Urine pH 5.5 (4.5-7.5) 11/30/23 Unknown Ur Specific [place] 1.008 (1.000-1.030) 11/30/23 Unknown Urine Protein Trace (Negative) H 11/30/23 Unknown Urine Glucose (UA) Negative (Negative) 11/30/23 Unknown Urine Ketones Negative (Negative) 11/30/23 Unknown Urine Blood Negative (Negative) 11/30/23 Unknown Urine Nitrite Negative (Negative) 11/30/23 Unknown Urine Bilirubin Negative (Negative) 11/30/23 Unknown Urine Urobilinogen Negative (Negative) 11/30/23 Unknown Ur Leukocyte Esterase Trace (Negative) H 11/30/23 Unknown Urine WBC (Auto) 6-10 /hpf (0-5) H 11/30/23 Unknown Urine RBC (Auto) 0-2 /hpf (0-2) 11/30/23 Unknown U Hyaline Cast (Auto) 0-2 /lpf (0-2) 11/30/23 Unknown U Epithel Cells (Auto) 0-2 /hpf (0-2) 11/30/23 Unknown Urine Bacteria (Auto) None Seen (None Seen) 11/30/23 Unknown Impressions Chest X-Ray 11/29/23 17:16 XR chest 1V not portable HISTORY: 77 years-old Male Chest pain, nonspecific COMPARISON: None TECHNIQUE: AP view of the chest FINDINGS: Cardiac silhouette is enlarged. Left subclavian pacer/AICD. No pneumothorax. Pulmonary vascular congestion. Small right and trace left pleural effusions with mild right basilar predominant consolidation. Bones are grossly intact. IMPRESSION: 1. Cardiomegaly with pulmonary vascular congestion. 2. Small right and trace left pleural effusions. 3. Mild right basilar consolidation. ACT 112: Negative or not required by law. The above report was generated using voice recognition software. It may contain grammatical, syntax or spelling errors. Electronically signed by: Jose Eduardo Armenta M.D. 11/29/2023 6:14 PM Hospital Course (1) Acute decompensated heart failure: Acute decompensated systolic heart failure with biventricular ICD placement status Complicated by valvular heart disease Nonischemic cardiomyopathy Severe mitral regurgitation --CXR:Cardiomegaly with pulmonary vascular congestion Small right and trace left pleural effusions. --ECHO: EF 20 to 25%. Diffuse hypokinesis to akinesis. Severe biatrial enlargement. Severe mitral regurgitation. Mild tricuspid regurgitation. Monitor volume status Appreciate cardiology, nephrology input IV Lasix infusion discontinued Continue fluid restriction Also on metoprolol Replace electrolytes as needed Diuresed well Continue Bumex 2 mg daily Renal function better today Plan to be discharged home today Mild Troponin elevation Likely demand ischemia, in setting of renal impairment Doubt any ACS (2) Bilateral edema of lower extremity: Management as above (3) Pulmonary edema: Management as above (4) S/P implantation of automatic cardioverter/defibrillator (AICD): Known systolic heart failure and has a biventricular ICD placed Echo as above NSVTs, PVCs Continue beta-juanito Also started on amiodarone 200 mg twice daily Monitor and replace electrolytes as needed Erythematous rash on hands ? Contact dermatitis continue hydrocortisone cream Monitor Slowly improving (5) MARTIN (acute kidney injury): 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 Unknown baseline Expected rise in creatinine given IV diuretics Avoid nephrotoxic agents as able Appreciate nephrology input Cr 2.82 today Monitor renal function closely Needs follow-up with nephrology on discharge (6) H/O valvular heart disease: (7) Atrial fibrillation: Continue amiodarone, metoprolol Continue Coumadin Monitor INR 3.0 today Adjust Coumadin dose as needed (8) HTN (hypertension): stable Continue current meds (9) BPH (benign prostatic hyperplasia): Continue Proscar, tamsulosin Plan DVT Px: Coumadin CODE STATUS Full code Disposition Home with home Total Time Total Time Spent Total Time Spent (In Minutes): 56 minutes Discharge Plan Discharge Items Patient Disposition: Home - Home Health Services Reason For Visit: CHF Discharge Diagnosis: Acute decompensated systolic heart failure 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 Severe mitral regurgitation Activity: Per Instructions section Exercise/Sports: Wait until after follow-up appointment Non-emergency contact: Primary Care Provider and Telesales Representative Call non-emergency contact if: you have any medication questions, your symptoms worsen, your pain is concerning for you and you have a fever Follow-up/Referrals: Alejandrina Yanez MD, PhD [Physician] - (The Nephrology office will contact you for a follow up appointment/lab work.) Min Velásquez MD [Primary Care Provider] - 12/22/23 2:00 pm Diet: Heart Healthy and Low Sodium (2gm) Fluids: 1500ml (6 cups) Addtl Attending Provider Instructions: --Follow-up with your primary care physician on 12/22/2023 at 2 PM as scheduled --Follow-up with your web portal developer Dr. Hilton as advised. Office will call you with appointment --Follow-up with your category manager with repeat blood work as recommended. Office will call you with appointment --Follow-up with Coumadin clinic/primary care physician for monitoring your PT/INR and adjusting your Coumadin dose as needed. Obtain PT/INR in 2 days for further instructions on coumadin dose. -- Monitor your standing weight daily and please bring the log for follow-up with primary care physician/category manager/web portal developer for review. -- Take 2.5 mg metolazone daily for 3 days for weight gain greater than 3 lb in 24 hrs or greater than 5lb within one week. Discuss with your physician for further instructions. --Obtain blood work (basic metabolic panel and PT/INR) in 1 week and follow-up with your primary care physician --Continue fluid restriction 1.5 L/day and low-sodium diet less than 2 g/day as recommended by your category manager. --Your PT/INR is 2.0 today (12/12/2023). Take Coumadin 1 mg today (12/12/2023) and tomorrow (12/13/2023). Obtain blood work PT/INR in 2 days. Follow-up with your Coumadin clinic for further instructions. Seek immediate medical attention if your symptoms reoccur or worsen Please take all medications as instructed on discharge list below. Please call if you have any questions or problems. You can reach a [facility] hospitalist on duty at [facility] 24 hours a day by calling [phone] Call your Primary Care doctor if any of the following symptoms or problems start or get worse: * Shortness of breath or difficulty breathing * Wake up at night short of breath * Chest pain * Cough * Swelling of your hands, feet, or legs * More fatigued or tired with your normal activity * Palpitations - sudden fast heart beats WEIGHT * Weigh yourself every morning after using the bathroom. * Use the same scale. * Wear the same amount of clothing. * Write your weight down on a chart. * Call your Primary Care doctor if you gain more than 2-3 pounds in 1-2 days. MEDICATIONS * Use this discharge instruction sheet for medication instructions. * Take your medications at the time your doctor ordered. * Do not skip a dose of your medicines. * If you miss a dose of medicine, take it as soon as possible, but DO NOT DOUBLE A DOSE. * Read your medicine information when you get home. * Know all of the side effects of your medicine. If in doubt, ask your pharmacist * Call your Primary Care doctor's office if you have any side effects. * Be sure all of your doctors know what medicine and herbs you take (including cold, flu, and herbal medicine). Take the following with you to your follow-up doctor appointments: * Weight Chart * Medication List * List of questions Do not drink excessive alcohol, beer or wine. Pending Studies at Discharge: No Stand-Alone Forms: My [facility], Smoking Cessation Medications and DC Order Prescriptions: New metolazone 2.5 mg Tablet 2.5 mg PO UD Qty: 30 0RF Rx Instructions: Take 2.5 mg metolazone daily for 3 days for weight gain greater than 3 lb in 24 hrs or greater than 5lb within one week. Further instructions as per your category manager amiodarone 200 mg Tablet 200 mg PO BIDM Qty: 60 0RF bumetanide 1 mg Tablet 2 mg PO QAM Qty: 30 0RF potassium chloride 20 mEq Tablet,Er Particles/Crystals 40 meq PO QAM Qty: 60 0RF hydrocortisone 1 % Ointment 1 applic EXT BID 7 Days Qty: 28.35 0RF Rx Instructions: Hand Rash Continued atorvastatin 20 mg tablet 20 mg PO DAILY tamsulosin 0.4 mg capsule 0.4 mg PO BID calcitriol 0.5 mcg capsule 0.5 mcg PO DAILY omeprazole 20 mg Capsule,Delayed Release(Dr/Ec) 20 mg PO BID multivitamin Tablet 1 tab PO DAILY vitamin B complex Tablet Extended Release 1 tab PO DAILY warfarin [Jantoven] 2.5 mg tablet 1.25 mg PO MOWEFR@0900 warfarin [Jantoven] 2.5 mg tablet 2.5 mg PO SUTUTHSA@0900 ascorbic acid (vitamin C) 1,000 mg Capsule, Extended Release 1 cap PO DAILY cholecalciferol (vitamin D3) [Vitamin D3] 25 mcg (1,000 unit) Tablet,Chewable 25 mcg PO DAILY finasteride 5 mg tablet 5 mg PO HS Changed metoprolol succinate 25 mg tablet extended release 24 hr 25 mg PO BID Qty: 60 0RF Held spironolactone 25 mg tablet 25 mg PO QAM Hold Instructions: Hold until further recommendations from your primary care physician. losartan 25 mg tablet 25 mg PO BID Hold Instructions: Hold taking until further recommendations from your primary care physician. Discontinued bumetanide 1 mg tablet 2 mg PO SUTUTHSA@0900 bumetanide 1 mg tablet 1 mg PO MOWEFR@0900 Discharge Orders: Discharge Order (Routine); Ordered 12/12/23 Ordered By: Trung La/Other Patient Handouts: Prediabetes, 5 Steps for Eating Healthier Admission Data Admit Date/Time: 11/29/23 21:03 Attending Provider: Trung Klein Admit Provider: Claus Jacobson Primary Care Provider: Min Velásquez Other Providers: Claus Jacobson; Gertrudis Garcia; Miller Méndez; Angel Laws; Vinicio Hilton; Cheng Hay; Tripp King; Sierra Wilson; Whit Castellano; Radha Hinton; Gertrudis Roque; Hector Montes; Jose Enrique Saleh; Natty Dennis; Janice Villalobos; Gabriela Shepard; Deion Mercado; Daniel Gillis; Anny Barros; Alejandrina Yanez; Alf Ny; Giles Cross; Cristian Pretty; Suma Ruano; Mark,Sudeep [facility]; [facility] Fax
== END 2023-12-12 14:30 | disposition home health service (06) | DRG 291 ==
LOC: ED 17:00 → 2S 21:03 → SUATTDRO 21:03 → 2S 22:19